=== PATIENT | female | born 2000 | race Asian ===

== ENCOUNTER 2023-12-12 18:23 | Emergency (ER) | payer BC ==
[~2023-12-12] VITALS: Ht 170.2 cm; Wt 51.4 kg
[~2023-12-12 18:23] MED LIST: LOP12.5T PO
[2023-12-12 18:51] VITALS: TEMP 99.1
[2023-12-12 20:39] VITALS: BP 123/87
[2023-12-12] MEDS ORDERED: ketorolac trometh. 30mg/ml inj. IV ONE (21:05)
[2023-12-12] MEDS: ipratropium/albuterol 3ml nebule NEB STA (21:09)
[2023-12-12 21:10] VITALS: PULSE 82; RESP 16; O2SAT 98
[2023-12-12] MEDS: ipratropium/albuterol 3ml nebule NEB ONE (21:13)
[2023-12-12 21:17] VITALS: PULSE 80; RESP 16; O2SAT 99
[2023-12-12 21:20] VITALS: RESP 16
[2023-12-12] MEDS: ketorolac tromethamine 15mg/ml inj. IV ONE (21:20)
[2023-12-12] MEDS: dexamethasone sod phosphate 10mg/ml inj IM STA (21:20)
[2023-12-12] MEDS: ketorolac tromethamine 15mg/ml inj. IM ONE (21:20)
== END 2023-12-12 22:45 | disposition home or self-care (01) ==
LOC: ER 18:23
DX: J45.901 Unspecified asthma with (acute) exacerbation (principal); R07.81 Pleurodynia; Z79.899 Other long term (current) drug therapy
CPT/HCPCS: 71045; 94640; 96372; 99284; J1100; J1885; 94760

== ENCOUNTER 2023-12-15 20:37 | Inpatient (IN) | payer BC ==
[~2023-12-15] VITALS: Ht 170.2 cm; Wt 51.0 kg
[2023-12-15] MEDS: albuterol 2.5 MG/3 ML nebule CONTNEB PRN (20:58)
[2023-12-15 21:02] VITALS: PULSE 93; RESP 35; O2SAT 100
[2023-12-15] MEDS: methylPREDNISolone sod succ/PF 40mg inj. IV STA (21:04)
[2023-12-15] MEDS: normal saline 1000ML IV soln IVB ONE (21:04)
[2023-12-15 21:09] LABS: BASOPHILS % (AUTO) 0.3 % (0-1); EOSINOPHILS # (AUTO) 0.1 X10'3 (0-0.9); EOSINOPHILS % (AUTO) 0.6 % (0-6); HEMATOCRIT 42.8 % (35.0-45.0); HEMOGLOBIN 14.3 g/dl (12.0-16.0); LYMPHOCYTES # (AUTO) 1.9 X10'3 (1.1-4.8); LYMPHOCYTES % (AUTO) 20.9 % (21-51); MEAN CORPUSCULAR HEMOGLOBIN 31.3 PG (27.0-31.0); MEAN CORPUSCULAR HGB CONC 33.5 g/dL (33.0-36.5); MEAN CORPUSCULAR VOLUME 93.5 FL (78-98); MEAN PLATELET VOLUME 7.3 FL (7.4-10.4); MONOCYTES # (AUTO) 0.8 X10'3 (0-0.9); MONOCYTES % (AUTO) 8.9 % (2-12); NEUTROPHILS # (AUTO) 6.2 X10'3 (1.8-7.7); NEUTROPHILS % (AUTO) 69.3 % (42-75); PLATELET COUNT 294 X10'3 (140-440); RED BLOOD COUNT 4.58 X10'6 (4.20-5.60); RED CELL DISTRIBUTION WIDTH 12.8 % (11.5-14.5); WHITE BLOOD COUNT 8.9 X10'3 (4.5-11.0)
[2023-12-15 21:18] LABS: ALBUMIN 4.1 G/DL (3.4-5.0); ANION GAP 11 (8-16); BLOOD UREA NITROGEN 10 MG/DL (7-18); BUN/CREATININE RATIO 15.9 (10.0-20.0); CALCIUM 8.9 MG/DL (8.5-10.1); CHLORIDE 102 MMOL/L (99-107); CREATININE 0.63 MG/DL (0.40-0.90); GLUCOSE 99 MG/DL (70-104); POTASSIUM 3.4 MMOL/L (3.5-5.1); SODIUM 139 MMOL/L (135-145); eCRCL 112 ML/MIN; eGFR > 90 ML/MIN
[2023-12-15 21:35] VITALS: PULSE 84; RESP 25; O2SAT 100
[2023-12-15 22:17] VITALS: PULSE 88; RESP 24; O2SAT 100
[2023-12-15] MEDS: magnesium 2GM in 50ml NS 50 ML IV ONE (22:50)
[2023-12-15 23:34] VITALS: PULSE 113; RESP 24; O2SAT 100
[2023-12-16] VITALS (21 sets, daily range): BP systolic 103–120; BP diastolic 50–73; PULSE 81–132; RESP 12–34; TEMP 97.2–98.7; O2SAT 97–100
[2023-12-16] MEDS ORDERED: ondansetron 4mg rapidly disintigrating tab PO PRN (00:05)
[2023-12-16] MEDS ORDERED: acetaminophen 325mg tablet PO PRN ×2 (00:05)
[2023-12-16] MEDS ORDERED: magnesium Cl slow-release 64mg tablet PO PRN (00:05)
[2023-12-16] MEDS ORDERED: potassium Cl 40MEQ/1/2NS 520ml 520 ML IV PRN (00:05)
[2023-12-16] MEDS ORDERED: magnesium 4gm in 100ml NS 100 ML IV PRN (00:05)
[2023-12-16] MEDS ORDERED: ondansetron/PF 4mg/2ml inj IV PRN (00:05)
[2023-12-16] MEDS ORDERED: magnesium 2GM in 50ml NS 50 ML IV PRN (00:05)
[2023-12-16] MEDS ORDERED: mag hydrox/Alum hydrox/simeth 30ml oral suspension PO PRN (00:05)
[2023-12-16] MEDS ORDERED: potassium Cl 20 mEq SR tablet PO PRN ×2 (00:05)
[2023-12-16] MEDS ORDERED: albuterol 2.5 MG/3 ML nebule NEB PRN (00:05)
[2023-12-16] MEDS ORDERED: magnesium hydroxide 30ml (MOM) UD suspension PO PRN (00:05)
[2023-12-16] MEDS: methylPREDNISolone sod succ 125mg/2ml vial IV ONE (00:59)
[2023-12-16 01:25] LABS: BILIRUBIN,URINE NEGATIVE (Neg); CLARITY,URINE CLEAR (Clear); COLOR,URINE STRAW (Yellow); GLUCOSE, URINE NEGATIVE (Neg); KETONES,URINE NEGATIVE (Neg); LEUKOCYTE ESTERASE ,URINE NEGATIVE (Neg); NITRITES, URINE NEGATIVE (Neg); OCCULT BLOOD,URINE SMALL (Neg); PH,URINE 5.5 (4.8-8.0); PROTEIN,URINE NEGATIVE (Neg); URINE HCG NEGATIVE (NEG); UROBILINOGEN,URINE 0.2 E.U/dL (0.2-1.0)
[2023-12-16 01:28] LABS: UA COLLECTION TYPE CLN CATCH MIDSTREAM
[2023-12-16] MEDS ORDERED: ipratropium 0.5 MG/2.5ML nebule IH PRN (01:30)
[2023-12-16 01:38] LABS: BACTERIA,URINE NONE SEEN /HPF (Neg); MUCUS STRANDS FEW /LPF (Neg); SQUAMOUS EPITHELIAL CELL,UR FEW /LPF (FEW); WBC,URINE 0-4 /HPF (0-4)
[2023-12-16 01:52] LABS: URINE AMPHETAMINE SCREEN NEGATIVE (Neg); URINE BARBITUATE SCREEN NEGATIVE (Neg); URINE BENZODIAZEPINES SCREEN NEGATIVE (Neg); URINE CANNABINOID SCREEN NEGATIVE (Neg); URINE COCAINE SCREEN NEGATIVE (Neg); URINE METHADONE SCREEN NEGATIVE (Neg); URINE PHENCYCLIDINE SCREEN NEGATIVE (Neg)
[2023-12-16] MEDS ORDERED: albuterol 2.5 MG/3 ML nebule NEB SCH ×2 (03:00→07:00)
[2023-12-16] MEDS: ipratropium 0.5 MG/2.5ML nebule IH SCH (03:08)
[2023-12-16] MEDS: albuterol 2.5 MG/3 ML nebule CONTNEB SCH (03:13)
[2023-12-16] MEDS: albuterol 2.5 MG/3 ML nebule CONTNEB PRN (05:26)
[2023-12-16] MEDS: budesonide 0.5mg/2ml UD nebule IH SCH (06:42)
[2023-12-16] MEDS: ipratropium/albuterol 3ml nebule NEB SCH (06:42)
[2023-12-16] MEDS: methylPREDNISolone sod succ/PF 40mg inj. IV SCH (07:43)
[2023-12-16] MEDS: docusate sod 100mg capsule PO SCH (08:00)
[2023-12-16] MEDS: enoxaparin 40mg/0.4ml syringe SUBCUT SCH (08:00)
[2023-12-16] MEDS: K and/or MAG REPLACEMENT MC SCH (08:00)
[2023-12-16] MEDS ORDERED: predniSONE 20 mg tablet PO SCH (08:00)
[2023-12-16] MEDS: albuterol 2.5 MG/3 ML nebule NEB PRN (08:01)
[2023-12-16 08:05] LABS: CREATINE KINASE 41 U/L (26-192); MAGNESIUM 2.3 MG/DL (1.5-2.4); POTASSIUM 3.9 MMOL/L (3.5-5.1); PRO BRAIN NATRIURETIC PEPTIDE 50 PG/ML (0-125)
[2023-12-16 08:15] LABS: D-DIMER 0.29 MG/L FEU (0-0.50)
[2023-12-16 08:32] LABS: BASOPHILS % (AUTO) 0.1 % (0-1); EOSINOPHILS % (AUTO) 0 % (0-6); HEMATOCRIT 41.3 % (35.0-45.0); HEMOGLOBIN 13.7 g/dl (12.0-16.0); LYMPHOCYTES # (AUTO) 0.5 X10'3 (1.1-4.8); LYMPHOCYTES % (AUTO) 4.7 % (21-51); MEAN CORPUSCULAR HEMOGLOBIN 31.1 PG (27.0-31.0); MEAN CORPUSCULAR HGB CONC 33.1 g/dL (33.0-36.5); MEAN CORPUSCULAR VOLUME 93.9 FL (78-98); MEAN PLATELET VOLUME 7.3 FL (7.4-10.4); MONOCYTES # (AUTO) 0.1 X10'3 (0-0.9); MONOCYTES % (AUTO) 1.1 % (2-12); NEUTROPHILS # (AUTO) 9.1 X10'3 (1.8-7.7); NEUTROPHILS % (AUTO) 94.1 % (42-75); PLATELET COUNT 270 X10'3 (140-440); RED CELL DISTRIBUTION WIDTH 12.8 % (11.5-14.5); WHITE BLOOD COUNT 9.7 X10'3 (4.5-11.0)
[2023-12-16] MEDS ORDERED: PRE5T PO (09:06)
[2023-12-16] MEDS ORDERED: ALBU2.5V10 (09:06)
[2023-12-16] MEDS ORDERED: INHA1SPA32 (09:06)
[2023-12-16] MEDS ORDERED: TIOT4MIS2 (09:06)
[2023-12-16] MEDS ORDERED: BUDE0.256 NEB (09:06)
[2023-12-16] MEDS ORDERED: BUDE10.26 (09:06)
[2023-12-16 10:02] LABS: ALANINE AMINOTRANSFERASE 28 U/L (12-78); ALBUMIN 3.7 G/DL (3.4-5.0); ALKALINE PHOSPHATASE 34 IU/L (46-116); ANION GAP 15 (8-16); ASPARTATE AMINO TRANSFERASE 11 U/L (10-37); BILIRUBIN,TOTAL 0.4 MG/DL (0.1-1.0); BLOOD UREA NITROGEN 6 MG/DL (7-18); BUN/CREATININE RATIO 7.8 (10.0-20.0); CALCIUM 8.5 MG/DL (8.5-10.1); CHLORIDE 104 MMOL/L (99-107); CREATININE 0.77 MG/DL (0.40-0.90); GLUCOSE 139 MG/DL (70-104); POTASSIUM 3.7 MMOL/L (3.5-5.1); SODIUM 138 MMOL/L (135-145); TOTAL CARBON DIOXIDE 19.3 MMOL/L (24-32); TOTAL PROTEIN 7.3 G/DL (6.4-8.2); eCRCL 91 ML/MIN; eGFR > 90 ML/MIN
[2023-12-16] MEDS ORDERED: levalbuterol 1.25mg/0.5ml nebule IH PRN (14:30)
[2023-12-16] MEDS: metoprolol tartrate 25mg tablet PO ONE (15:00)
[2023-12-17] VITALS (12 sets, daily range): BP systolic 105–115; BP diastolic 65–78; PULSE 88–102; RESP 14–18; TEMP 97.6–98; O2SAT 92–99
[2023-12-17 07:09] LABS: BASOPHILS % (AUTO) 0.1 % (0-1); EOSINOPHILS % (AUTO) 0 % (0-6); HEMATOCRIT 43.7 % (35.0-45.0); HEMOGLOBIN 14.5 g/dl (12.0-16.0); LYMPHOCYTES # (AUTO) 0.9 X10'3 (1.1-4.8); LYMPHOCYTES % (AUTO) 6.8 % (21-51); MEAN CORPUSCULAR HEMOGLOBIN 31.1 PG (27.0-31.0); MEAN CORPUSCULAR HGB CONC 33.2 g/dL (33.0-36.5); MEAN CORPUSCULAR VOLUME 93.6 FL (78-98); MEAN PLATELET VOLUME 7.5 FL (7.4-10.4); MONOCYTES # (AUTO) 0.6 X10'3 (0-0.9); MONOCYTES % (AUTO) 4.2 % (2-12); NEUTROPHILS # (AUTO) 12.3 X10'3 (1.8-7.7); NEUTROPHILS % (AUTO) 88.9 % (42-75); PLATELET COUNT 276 X10'3 (140-440); RED BLOOD COUNT 4.66 X10'6 (4.20-5.60); RED CELL DISTRIBUTION WIDTH 12.9 % (11.5-14.5); WHITE BLOOD COUNT 13.9 X10'3 (4.5-11.0)
[2023-12-17 07:17] LABS: ALBUMIN 3.9 G/DL (3.4-5.0); ANION GAP 11 (8-16); BLOOD UREA NITROGEN 12 MG/DL (7-18); BUN/CREATININE RATIO 19.7 (10.0-20.0); CALCIUM 9.3 MG/DL (8.5-10.1); CHLORIDE 101 MMOL/L (99-107); CREATININE 0.61 MG/DL (0.40-0.90); GLUCOSE 106 MG/DL (70-104); MAGNESIUM 2.3 MG/DL (1.5-2.4); PHOSPHORUS 4.5 MG/DL (2.3-4.5); POTASSIUM 4.1 MMOL/L (3.5-5.1); SODIUM 137 MMOL/L (135-145); eCRCL 115 ML/MIN; eGFR > 90 ML/MIN
[2023-12-17] MEDS ORDERED: PRED10TA23 PO (14:23)
[2023-12-17] MEDS ORDERED: PANT40SU2 PO (14:24)
== END 2023-12-17 16:30 | disposition home or self-care (01) | DRG 203 ==
LOC: ER 20:38 → ED HOLD 12-16 00:09 → ORTHO 4S 12-16 07:32
PROVIDERS: ADMIT Family Medicine; ATTEND Internal Medicine
DX: J45.902 Unspecified asthma with status asthmaticus (principal); E87.6 Hypokalemia
CPT/HCPCS: 36415; 71045; 80048; 80053; 80305; 81001; 81025; 82550; 83735; 83880; 84100; 84132; 84484; 85025; 85379; 87081; 93005; 94640; 94760; 99291; G0378; J2919; J3475; J7030

== ENCOUNTER 2023-12-19 22:49 | Emergency (ER) | payer BC ==
[~2023-12-19] VITALS: Ht 175.3 cm; Wt 65.9 kg
[~2023-12-19 22:49] MED LIST changes: +ALBU2.5V10; +BUDE0.256 NEB; +BUDE10.26; +INHA1SPA32; +PANT40SU2 PO; +PRED10TA23 PO; +TIOT4MIS2
[2023-12-19 22:53] VITALS: TEMP 98.7
[2023-12-19] MEDS ORDERED: ipratropium/albuterol 3ml nebule NEB PRN (22:55)
[2023-12-19] MEDS: albuterol 2.5 MG/3 ML nebule CONTNEB PRN (23:02)
[2023-12-19] MEDS: methylPREDNISolone sod succ 125mg/2ml vial IV ONE (23:02)
[2023-12-19 23:03] VITALS: PULSE 95; RESP 21; O2SAT 10
[2023-12-19] MEDS: magnesium 2GM in 50ml NS 50 ML IV ONE (23:15)
[2023-12-20 00:02] VITALS: PULSE 96; RESP 24; O2SAT 100
[2023-12-20] MEDS: epiNEPHrine 1 mg/ml inj IM STA (00:29)
[2023-12-20 00:56] LABS: BASOPHILS # (AUTO) 0.2 X10'3 (0-0.2); EOSINOPHILS % (AUTO) 0.3 % (0-6); HEMATOCRIT 39.2 % (35.0-45.0); HEMOGLOBIN 13.3 g/dl (12.0-16.0); LYMPHOCYTES # (AUTO) 0.6 X10'3 (1.1-4.8); LYMPHOCYTES % (AUTO) 7.2 % (21-51); MEAN CORPUSCULAR HEMOGLOBIN 31.1 PG (27.0-31.0); MEAN CORPUSCULAR VOLUME 91.5 FL (78-98); MEAN PLATELET VOLUME 7.3 FL (7.4-10.4); MONOCYTES # (AUTO) 0.3 X10'3 (0-0.9); MONOCYTES % (AUTO) 3.3 % (2-12); NEUTROPHILS # (AUTO) 7.1 X10'3 (1.8-7.7); NEUTROPHILS % (AUTO) 87.2 % (42-75); PLATELET COUNT 237 X10'3 (140-440); RED BLOOD COUNT 4.29 X10'6 (4.20-5.60); WHITE BLOOD COUNT 8.2 X10'3 (4.5-11.0)
[2023-12-20 00:59] LABS: ALBUMIN 3.8 G/DL (3.4-5.0); ANION GAP 12 (8-16); BLOOD UREA NITROGEN 12 MG/DL (7-18); BUN/CREATININE RATIO 19.7 (10.0-20.0); CALCIUM 8.3 MG/DL (8.5-10.1); CHLORIDE 105 MMOL/L (99-107); CREATININE 0.61 MG/DL (0.40-0.90); GLUCOSE 122 MG/DL (70-104); SODIUM 140 MMOL/L (135-145); TOTAL CARBON DIOXIDE 23.1 MMOL/L (24-32); eCRCL 149 ML/MIN; eGFR > 90 ML/MIN
[2023-12-20 01:06] LABS: POTASSIUM 2.9 MMOL/L (3.5-5.1)
[2023-12-20 02:24] VITALS: BP 109/71; PULSE 89; RESP 24; O2SAT 100
== END 2023-12-20 02:20 | disposition home or self-care (01) ==
LOC: ER 22:49
DX: J45.998 Other asthma (principal); Z79.899 Other long term (current) drug therapy
CPT/HCPCS: 36415; 80048; 85025; 94640; 94644; 96365; 96372; 96375; 99285; J0171; J2919; J3475; 94760

== ENCOUNTER 2024-01-08 22:31 | Emergency (ER) | payer BC ==
[~2024-01-08] VITALS: Ht 170.2 cm; Wt 53.4 kg
[2024-01-08 22:34] VITALS: TEMP 98.9
[2024-01-08] MEDS ORDERED: albuterol 2.5 MG/3 ML nebule NEB ONE (22:45)
[2024-01-08] MEDS: predniSONE 20 mg tablet PO ONE (22:45)
[2024-01-08] MEDS: albuterol 2.5 MG/3 ML nebule CONTNEB PRN (23:02)
[2024-01-08 23:10] VITALS: PULSE 110; RESP 26; O2SAT 96
[2024-01-08 23:13] LABS: BASOPHILS % (AUTO) 0.7 % (0-1); EOSINOPHILS # (AUTO) 0.1 X10'3 (0-0.9); EOSINOPHILS % (AUTO) 1.7 % (0-6); HEMATOCRIT 39.2 % (35.0-45.0); HEMOGLOBIN 13.2 g/dl (12.0-16.0); LYMPHOCYTES # (AUTO) 1.6 X10'3 (1.1-4.8); LYMPHOCYTES % (AUTO) 26.7 % (21-51); MEAN CORPUSCULAR HGB CONC 33.6 g/dL (33.0-36.5); MEAN CORPUSCULAR VOLUME 92.3 FL (78-98); MEAN PLATELET VOLUME 6.7 FL (7.4-10.4); MONOCYTES # (AUTO) 0.6 X10'3 (0-0.9); MONOCYTES % (AUTO) 10.1 % (2-12); NEUTROPHILS # (AUTO) 3.6 X10'3 (1.8-7.7); NEUTROPHILS % (AUTO) 60.8 % (42-75); PLATELET COUNT 248 X10'3 (140-440); RED BLOOD COUNT 4.24 X10'6 (4.20-5.60); RED CELL DISTRIBUTION WIDTH 12.9 % (11.5-14.5); WHITE BLOOD COUNT 5.9 X10'3 (4.5-11.0)
[2024-01-08] MEDS: dexamethasone sod phosphate 10mg/ml inj IV STA (23:28)
[2024-01-08 23:35] LABS: ALBUMIN 3.6 G/DL (3.4-5.0); ANION GAP 10 (8-16); BLOOD UREA NITROGEN 11 MG/DL (7-18); BUN/CREATININE RATIO 20.4 (10.0-20.0); CALCIUM 8.7 MG/DL (8.5-10.1); CHLORIDE 107 MMOL/L (99-107); CREATININE 0.54 MG/DL (0.40-0.90); GLUCOSE 103 MG/DL (70-104); POTASSIUM 3.5 MMOL/L (3.5-5.1); SODIUM 142 MMOL/L (135-145); TOTAL CARBON DIOXIDE 24.8 MMOL/L (24-32); eCRCL 137 ML/MIN; eGFR > 90 ML/MIN
[2024-01-08 23:39] LABS: PRO BRAIN NATRIURETIC PEPTIDE < 30 PG/ML (0-125)
[2024-01-09 00:22] VITALS: PULSE 106; RESP 16; O2SAT 97
[2024-01-09 01:32] VITALS: BP 105/69; PULSE 93; RESP 15; O2SAT 98
== END 2024-01-09 01:35 | disposition home or self-care (01) ==
LOC: ER 22:32
DX: J45.909 Unspecified asthma, uncomplicated (principal); Z79.899 Other long term (current) drug therapy
CPT/HCPCS: 36415; 71045; 80048; 83880; 84484; 85025; 93005; 94640; 94644; 96374; 99285; J1100; A7015

== ENCOUNTER 2024-08-08 13:08 | Emergency (ER) | payer BC ==
[~2024-08-08] VITALS: Ht 170.2 cm; Wt 61.6 kg
[~2024-08-08 13:08] MED LIST changes: -PRED10TA23 PO
[2024-08-08] MEDS: methylPREDNISolone sod succ 125mg/2ml vial IV ONE (14:17)
[2024-08-08] MEDS: ipratropium/albuterol 3ml nebule NEB ONE (14:17)
[2024-08-08 14:22] VITALS: PULSE 88; RESP 20; O2SAT 100
[2024-08-08 14:27] VITALS: PULSE 94; RESP 20; O2SAT 100
[2024-08-08] MEDS ORDERED: PRED10TA23 PO (15:51)
[2024-08-08 16:05] VITALS: BP 103/69; PULSE 99; RESP 16; TEMP 98; O2SAT 100
== END 2024-08-08 16:04 | disposition home or self-care (01) ==
LOC: ER 13:08
DX: J45.901 Unspecified asthma with (acute) exacerbation (principal); Z79.899 Other long term (current) drug therapy
CPT/HCPCS: 94640; 96374; 99283; J2919; 94760

== ENCOUNTER 2024-08-12 19:49 | Emergency (ER) | payer BC ==
[~2024-08-12] VITALS: Ht 170.2 cm; Wt 53.6 kg
[~2024-08-12 19:49] MED LIST changes: +PRED10TA23 PO
[2024-08-12] MEDS ORDERED: ipratropium/albuterol 3ml nebule NEB PRN (22:20)
[2024-08-12] MEDS: ipratropium/albuterol 3ml nebule NEB ONE (23:00)
[2024-08-12 23:02] VITALS: PULSE 104; O2SAT 100
[2024-08-12 23:05] VITALS: PULSE 98; RESP 24; O2SAT 100
[2024-08-13] MEDS ORDERED: METH4TAB81 PO (00:12)
[2024-08-13] MEDS: dexamethasone 4mg/ml inj IM ONE (01:11)
[2024-08-13] MEDS: albuterol 2.5 MG/3 ML nebule NEB ONE (01:20)
[2024-08-13 01:21] VITALS: PULSE 85; RESP 21; O2SAT 99
[2024-08-13 01:28] VITALS: PULSE 89; RESP 20; O2SAT 100
[2024-08-13 02:26] VITALS: BP 109/70; PULSE 103; RESP 16; TEMP 97.7; O2SAT 99
== END 2024-08-13 02:23 | disposition home or self-care (01) ==
LOC: ER 19:50
DX: J45.909 Unspecified asthma, uncomplicated (principal); F41.9 Anxiety disorder, unspecified
CPT/HCPCS: 71046; 94640; 96372; 99285; J1100; 94760

== ENCOUNTER 2024-08-20 20:27 | Emergency (ER) | payer BC ==
[~2024-08-20] VITALS: Ht 170.2 cm; Wt 63.5 kg
[~2024-08-20 20:27] MED LIST changes: +METH4TAB81 PO
[2024-08-20 20:34] VITALS: TEMP 99
[2024-08-20] MEDS: normal saline 1000ml 1,000 ML IV ONE (21:46)
[2024-08-20] MEDS: methylPREDNISolone sod succ 125mg/2ml vial IV ONE (21:46)
[2024-08-20] MEDS: ipratropium/albuterol 3ml nebule NEB ONE (22:59)
[2024-08-20 23:01] VITALS: PULSE 122; RESP 18; O2SAT 99
[2024-08-20 23:04] VITALS: PULSE 119; RESP 18; O2SAT 99
[2024-08-21 00:08] VITALS: BP 109/77; PULSE 116; RESP 16; O2SAT 99
== END 2024-08-21 00:10 | disposition home or self-care (01) ==
LOC: ER 20:28
DX: J45.909 Unspecified asthma, uncomplicated (principal); Z79.899 Other long term (current) drug therapy
CPT/HCPCS: 71045; 93005; 94640; 96361; 96374; 99283; J2919; J7030; 94760

== ENCOUNTER 2024-09-02 20:48 | Emergency (ER) | payer BC ==
[~2024-09-02] VITALS: Ht 170.2 cm; Wt 56.1 kg
[2024-09-02] MEDS: ipratropium/albuterol 3ml nebule NEB ONE (22:05)
[2024-09-02 22:08] VITALS: PULSE 105; PULSE 111; RESP 18; RESP 22; O2SAT 100; O2SAT 98
[2024-09-02] MEDS: dexamethasone sod phosphate 10mg/ml inj IM ONE (22:58)
[2024-09-02] MEDS: albuterol 2.5 MG/3 ML nebule CONTNEB ONE (23:34)
[2024-09-02 23:37] VITALS: PULSE 98; RESP 18; O2SAT 99
[2024-09-03 00:06] VITALS: BP 133/100; TEMP 96.8
[2024-09-03 00:16] VITALS: PULSE 111; RESP 20; O2SAT 99
== END 2024-09-03 00:18 | disposition home or self-care (01) ==
LOC: ER 20:49
DX: J45.901 Unspecified asthma with (acute) exacerbation (principal); Z79.52 Long term (current) use of systemic steroids; Z79.899 Other long term (current) drug therapy
CPT/HCPCS: 94644; 96372; 99285; J1100; 94640; 94760; A7015

== ENCOUNTER 2024-10-22 01:55 | Emergency (ER) | payer BC ==
[~2024-10-22] VITALS: Ht 170.2 cm; Wt 56.2 kg
[~2024-10-22 01:55] MED LIST changes: -PRED10TA23 PO
[2024-10-22] MEDS: dexamethasone sod phosphate 10mg/ml inj IM STA (02:59)
[2024-10-22 03:30] VITALS: PULSE 94; RESP 22; O2SAT 98
[2024-10-22] MEDS: ipratropium/albuterol 3ml nebule NEB ONE (03:35)
[2024-10-22 03:47] VITALS: PULSE 91; RESP 24; O2SAT 97
[2024-10-22 04:49] VITALS: BP 121/69; PULSE 97; RESP 18; TEMP 98.1; O2SAT 97
== END 2024-10-22 04:51 | disposition home or self-care (01) ==
LOC: ER 01:56
DX: J45.909 Unspecified asthma, uncomplicated (principal); Z79.52 Long term (current) use of systemic steroids
CPT/HCPCS: 94640; 96372; 99283; J1100; 94760

== ENCOUNTER 2024-11-10 19:00 | Emergency (ER) | payer BC ==
[~2024-11-10] VITALS: Ht 170.2 cm; Wt 66.0 kg
[2024-11-10] MEDS ORDERED: ipratropium/albuterol 3ml nebule NEB ONE (19:20)
[2024-11-10] MEDS ORDERED: racepinephrine 11.25mg/0.5ml nebule IH ONE (19:30)
--- NOTE | 2024-11-10 19:33 | ELECTROCARDIOGRAPH REPORT ---
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 Toro Tapia Measurements Intervals [place] Rate: 99 P: 45 [place]: 131 QRS: 64 QRSD: 80 T: 40 QT: 328 QTc: 421 Interpretive Statements Sinus rhythm Baseline wander in lead(s) V3 Electronically Signed On 11-11-2024 15:46:[address] Toro Tapia Please click the below link to view image of tracing.
[2024-11-10 19:38] LABS: BASOPHILS % (AUTO) 0.4 % (0-1); EOSINOPHILS % (AUTO) 0.5 % (0-6); HEMATOCRIT 38.3 % (35.0-45.0); HEMOGLOBIN 12.5 g/dl (12.0-16.0); LYMPHOCYTES # (AUTO) 3.2 X10'3 (1.1-4.8); LYMPHOCYTES % (AUTO) 35.5 % (21-51); MEAN CORPUSCULAR HGB CONC 32.7 g/dL (33.0-36.5); MEAN CORPUSCULAR VOLUME 85.7 FL (78-98); MEAN PLATELET VOLUME 7.3 FL (7.4-10.4); MONOCYTES # (AUTO) 0.7 X10'3 (0-0.9); MONOCYTES % (AUTO) 8.2 % (2-12); NEUTROPHILS % (AUTO) 55.4 % (42-75); PLATELET COUNT 310 X10'3 (140-440); RED BLOOD COUNT 4.47 X10'6 (4.20-5.60); RED CELL DISTRIBUTION WIDTH 15.1 % (11.5-14.5)
[2024-11-10 19:56] VITALS: PULSE 98; RESP 2; O2SAT 99
[2024-11-10 19:56] LABS: ALANINE AMINOTRANSFERASE 31 U/L (12-78); ALBUMIN/GLOBULIN RATIO 1.5 (1.1-1.5); ALKALINE PHOSPHATASE 59 IU/L (46-116); ANION GAP 9 (8-16); ASPARTATE AMINO TRANSFERASE 19 U/L (10-37); BILIRUBIN,TOTAL 0.3 MG/DL (0.1-1.0); BLOOD UREA NITROGEN 17 MG/DL (7-18); BUN/CREATININE RATIO 33.3 (10.0-20.0); CALCIUM 8.5 MG/DL (8.5-10.1); CHLORIDE 107 MMOL/L (99-107); CREATININE 0.51 MG/DL (0.40-0.90); GLUCOSE 88 MG/DL (70-104); POTASSIUM 3.6 MMOL/L (3.5-5.1); SODIUM 143 MMOL/L (135-145); TOTAL CARBON DIOXIDE 27.5 MMOL/L (24-32); TOTAL PROTEIN 6.7 G/DL (6.4-8.2); eCRCL 165 ML/MIN; eGFR > 90 ML/MIN
[2024-11-10] MEDS: ipratropium/albuterol 3ml nebule NEB ONE (20:05)
[2024-11-10 20:08] VITALS: PULSE 106; O2SAT 100
--- NOTE | 2024-11-10 20:12 | Physician Documentation ---
History of Present Illness ~ Chief Complaint: Asthma Stated Complaint: "WHEEZING" Time Seen by MD: 19:31 Primary Medical Doctor: Frankie (PCP)/UCXander for asthma Mode of Arrival: POV HPI Patient presents to the emergency room for evaluation of shortness of breath. 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 Her doctor it was recently discontinued her albuterol treatment. Colleague at bedside states she has been wheezing all day. Medication Reconciliation Allergies: Coded Allergies: No Known Allergies (Unverified , 10/22/24) Scheduled Budesonide (Budesonide), 2 ML NEB BID, (Reported) Methylprednisolone (Medrol Dosepak), 0 PO UD Metoprolol Tartrate (Lopressor tablet), 1 TAB PO DAILY Pantoprazole Sodium (Protonix), 40 MG PO DAILY Tiotropium [place] (Spiriva Respimat), 2 PUFFS DAILY, (Reported) Miscellaneous Medications Albuterol Sulfate (Albuterol Sulfate), (Reported) Budesonide/Formoterol Fumarate (Budesonide-Formoterol 160-4.5), (Reported) Durable Medical Equipment Inhaler, Assist Devices (Compact Space Chamber), (Reported), (DME) Past Medical History Past Medical History: Asthma Patient History: Patient reports no known family medical history. Alcohol Use: None Drug Use: none Review of Systems ROS All review of systems negative except as per HPI Physical Exam Vital Signs: Temperature: 98.4, Source: Oral, Heart Rate: 106, Respiratory Rate: 2, BP: 101/71, Pulse Oximetry: 100, Weight: 66.000 Oxygen Flow Rate: 0 Physical Exam General: Patient is awake, alert, oriented x4 in no acute distress Head: Normocephalic and atraumatic. Eyes: Conjunctival normal. EOMI. PERRL. ENT: Mucous membranes moist. Neck: Supple, trachea is midline. Chest: Clear to auscultation bilaterally without rales, rhonchi, or wheezes. There is no accessory muscle use or retractions. Cardiac: Tachycardic and regular without murmurs, gallops, or rubs. Extremities: Normal strength. Normal range of motion. No deformities or edema. No calf tenderness to palpation Progress Results/Orders Results/Orders Orders - JOSEPH PADILLA MD Cont Nebulizer Treatment (11/10/24 20:36) Albuterol 2.5mg/3ml Nebule (Proventil 2. (11/10/24 20:40) Medications Received in ER Medications (Trade) Dose Ordered Sig/Cherry Route PRN Reason Start Time Stop Time Status Last Admin Dose Admin (ipratrop/ albuterol 0.5-3(2.5) MG/3ml nebule) 3 ml ONCE ONCE NEB 11/10/24 20:05 11/10/24 20:06 DC 11/10/24 20:05 3 ML (Proventil 2.5 MG/3ML nebule) 5 mg Q1H PRN CONTNEB SOB or wheezing 11/10/24 20:40 11/10/24 21:06 5 MG Vital Signs 11/10/24 11/10/24 11/10/24 11/10/24 19:17 19:46 19:48 19:56 Temp 98.4 Pulse 101 103 98 Resp 19 21 2 B/P (MAP) 112/78 101/71 (81) Pulse Ox 100 100 99 O2 Delivery Room Air* O2 Flow Rate 0 0 FiO2 21 11/10/24 11/10/24 11/10/24 11/10/24 20:08 20:23 20:32 21:09 Pulse 106 102 96 Resp 6 B/P (MAP) 107/71 (83) Pulse Ox 100 100 100 O2 Delivery Room Air* O2 Flow Rate 0 FiO2 21 11/10/24 11/10/24 21:09 21:55 Pulse 100 B/P (MAP) 110/75 (87) Pulse Ox 100 O2 Flow Rate 8.0 Laboratory Tests Test 11/10/24 19:28 White Blood Count 9.0 Red Blood Count 4.47 Hemoglobin 12.5 Hematocrit 38.3 Mean Corpuscular Volume 85.7 Mean Corpuscular Hemoglobin 28.0 Mean Corpuscular Hemoglobin Concent 32.7 L Red Cell Distribution Width 15.1 H Platelet Count 310 Mean Platelet Volume 7.3 L Neutrophils (%) (Auto) 55.4 Lymphocytes (%) (Auto) 35.5 Monocytes (%) (Auto) 8.2 Eosinophils (%) (Auto) 0.5 Basophils (%) (Auto) 0.4 Neutrophils # (Auto) 5.0 Lymphocytes # (Auto) 3.2 Monocytes # (Auto) 0.7 Eosinophils # (Auto) 0.0 Basophils # (Auto) 0.0 CBC Comment Sodium Level 143 Potassium Level 3.6 Chloride Level 107 Carbon Dioxide Level 27.5 Anion Gap 9 Blood Urea Nitrogen 17 Creatinine 0.51 Estimated GFR/1.73 m2 > 90 BUN/Creatinine Ratio 33.3 H Glucose Level 88 Calcium Level 8.5 Total Bilirubin 0.3 Aspartate Amino Transf (AST/SGOT) 19 Alanine Aminotransferase (ALT/SGPT) 31 Alkaline Phosphatase 59 Total Protein 6.7 Albumin 4.0 Globulin 2.7 Albumin/Globulin Ratio 1.5 Chemistry Comments EKG/XRAY/CT/US/VASC/MRI Chest X-Ray : Additional Comments Chest x-ray interpreted by myself shows no effusions, no infiltrates, normal cardiac silhouette. Ring like metallic foreign body noted over left lower chest likely related to clothing. Correlate on physical exam Medical Decision Making Findings Patient presents to the emergency room for evaluation of shortness of breath. No wheezing upon auscultation. She was responded to breathing treatments any ways and it was asking to leave. I do believe that has an element of anxiety. Differential Dx:Considerations: Include: anxiety, asthma, bronchitis, hyperventilation, pulmonary embolism, respiratory distress Departure Disposition: HOME / SELF CARE / HOMELESS Impression: Primary Impression: Acute respiratory distress Condition: Improved Discharge Instructions: Asthma, Adult, [id number] Additional Instructions: Continue to follow up with your doctor for management Referrals: NO PRIMARY CARE PROVIDER (PCP) Education Educated: Patient Educated regarding: need for follow up Signature Scribe Signature: No scribe Attestation: The note accurately reflects work and decisions made by me.Joseph Padilla MD 11/10/24 22:08 JOSEPH PADILLA MD November 10, 2024 20:12
--- NOTE | 2024-11-10 20:50 | RADIOLOGY REPORT ---
Clinical History SOB Comparison None Without Contrast DIANAJOSE GLULU, [id number] Technique: Frontal and lateral chest x-ray Findings: The lungs are unremarkable. No pleural abnormality. The cardiomediastinal silhouette is unremarkable for an AP view. No acute osseous abnormality. The imaged part of the upper abdomen is unremarkable. Impression: No evidence of acute cardiopulmonary disease This report was electronically signed by Genesis Bailey MD on 11/10/2024 8:47:30 PM.
[2024-11-10] MEDS: albuterol 2.5 MG/3 ML nebule CONTNEB PRN (21:06)
[2024-11-10 21:09] VITALS: PULSE 96; RESP 6; O2SAT 100
[2024-11-10 22:29] VITALS: BP 102/65; PULSE 106; RESP 18; TEMP 98.4; O2SAT 100
== END 2024-11-10 22:31 | disposition home or self-care (01) ==
LOC: ER 19:01
DX: R06.03 Acute respiratory distress (principal); J45.909 Unspecified asthma, uncomplicated; Z79.899 Other long term (current) drug therapy
CPT/HCPCS: 71046; 80053; 85025; 93005; 94640; 94760; 99285

== ENCOUNTER 2024-12-06 12:46 | Inpatient (IN) | payer BC ==
[2024-12-06] VITALS (11 sets, daily range): BP systolic 108; BP diastolic 68; PULSE 81–131; RESP 14–26; TEMP 98.6; O2SAT 96–100
[~2024-12-06] VITALS: Ht 170.2 cm; Wt 64.0 kg
[~2024-12-06 12:46] MED LIST changes: -ALBU2.5V10; +ALBU2.5V10 IH; -BUDE10.26; +BUDE10.26 IH
--- NOTE | 2024-12-06 13:14 | ELECTROCARDIOGRAPH REPORT ---
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
--- NOTE | 2024-12-06 13:20 | Physician Documentation ---
History of Present Illness ~ Chief Complaint: Shortness of Breath Stated Complaint: BRONCHITIS/SOB Time Seen by MD: 13:14 OK to notify your PCP?: Yes Primary Medical Doctor: Frankie (PCP)/JAREKD for asthma Source: patient, RN/, RN notes reviewed, old records Mode of Arrival: POV Exam Limitations: no limitations HPI This patient is a 24 y/o female with asthma who presents to ED with chief complaint of shortness of breath. Patient reports that she was in the [place] where she was visiting her brother yesterday when she started to experience persistent shortness of breath. Patient does have breathing treatments at home which she has been using [id number], however they only provider her temporary relief. She decided to be seen by a doctor in the [place] yesterday where she was treated with IV steroids, stating that after riding in the car with her brother who was vaping, her symptoms became much worse. She notes she is pr oducing white phlegm. She denies any fevers or sick contacts. Patient reports she has been hospitalized 3 times over the past year for asthma exacerbation, the last time being in October, approximately 2 months ago at which time she was admitted to the ICU. Patient notes that she is supposed to be on daily steroid treatment, but has not been taking them over the past few weeks due to side effects. Patient denies any other associated symptoms at this time. Patient denies any other alleviating or exacerbating factors. Medication Reconciliation Allergies: Coded Allergies: No Known Allergies (Unverified , 12/06/24) Scheduled Budesonide (Budesonide), 2 ML NEB BID, (Reported) Tiotropium [place] (Spiriva Respimat), 2 PUFFS DAILY, (Reported) Miscellaneous Medications Albuterol Sulfate (Albuterol Sulfate), (Reported) Budesonide/Formoterol Fumarate (Budesonide-Formoterol 160-4.5), (Reported) Tezepelumab-Ekko (Tezspire), (Reported) Discontinued Medications Methylprednisolone (Medrol Dosepak), 0 PO UD Discontinued Reason: patient no longer taking Metoprolol Tartrate (Lopressor tablet), 1 TAB PO DAILY Discontinued Reason: patient no longer taking Pantoprazole Sodium (Protonix), 40 MG PO DAILY Discontinued Reason: patient no longer taking Durable Medical Equipment Inhaler, Assist Devices (Compact Space Chamber), (Reported), (DME) Past Medical History Past Medical History: Asthma Past Surgical History: no surgical history Patient History: Patient reports no known family medical history. Smoking Status: Never smoker Alcohol Use: None Drug Use: none Review of Systems All Other Systems at this time: Reviewed and Negative Physical Exam Vital Signs: RN Vital Signs have been reviewed: Yes, Temperature: 98.9, Source: Temporal, Heart Rate: 137, Respiratory Rate: 16, BP: 142/88, Pulse Oximetry: 96, Weight: 66.700 Oxygen Flow Rate: 0 Physical Exam General: The patient is well developed, well nourished, nontoxic appearing and is in no acute distress. Skin: Espy, warm and dry with no rashes. HEENT: Head was normocephalic and atraumatic. Eyes - pupils equal, round, reactive to light and accommodation. Extraocular movements were intact. Conjunctivae were nonicteric. The mouth and oropharynx were clear with moist mucous membranes. There were no pharyngeal exudates or erythema. Neck: Supple and nontender. There was no jugular venous distention, lymphadenopathy, thyromegaly or masses. Chest: Short, shallow breath sounds. Diaphragmatic breathing. Speaking in short 2-3 word sentences. Expiratory wheezing on auscultation. Otherwise no rales or rhonchi. No accessory muscle use. No dullness to percussion. Heart: Rate regular and rhythmic. S1, S2. No murmurs. Palpation of the chest wall was normal. No rubs or thrills. Abdomen: Soft, nontender and nondistended. Positive bowel sounds. No guarding or rebound. No hepatosplenomegaly or palpable masses. Extremities: No cyanosis, clubbing or edema. The patient moves all extremities. Pulses were equal and symmetric. Neurologic: Cranial nerves II-XII were intact. Sensation was intact to light touch throughout. Motor strength was 5/5 in all four extremities. Deep tendon reflexes were intact in both upper and lower extremities. Psychologic: The patient was oriented to person, place and time. The patient demonstrated appropriate judgement and insight. Progress Progress Note 1530: Paged Hospitalist 1606: Case discussed with hospitalist who agrees to evaluate patient for admission. Results/Orders Results/Orders Orders - JUAN MIGUEL TAPIA MD Chest,Single View (12/06/24 13:09) Monitor (12/06/24 13:01) Saline Lock (12/06/24 13:01) Oxygen (12/06/24 13:01) Electrocardiogram (12/06/24 13:01) Culture Blood (12/06/24 13:22) Cont Nebulizer Treatment (12/06/24 13:23) Albuterol 2.5mg/3ml Nebule (Proventil 2. (12/06/24 13:25) Abg (Arterial Blood Gas) (12/06/24 ) Heliox Svn Treatment (12/06/24 14:25) Heliox Svn Treatment (12/06/24 14:25) Page Hospitalist (12/06/24 15:30) Fill Out Med Reconciliation (12/06/24 15:30) Completed Orders - JUAN MIGUEL TAPIA MD Chest,Single View (12/06/24 13:09) Cbc/Diff (12/06/24 13:01) PBNP (12/06/24 13:01) Electrocardiogram (12/06/24 13:01) Hs Troponin I W Calculations (12/06/24 13:01) Normal Saline 1000ml (Sodium Chloride 10 (12/06/24 13:25) Procalcitonin (12/06/24 13:22) Lacticsepsis (12/06/24 13:22) Methylprednisolone Sod Succ (Solumedrol (12/06/24 13:25) CMP (12/06/24 13:45) Albuterol 2.5mg/3ml Nebule (Proventil 2. (12/06/24 14:25) Albuterol 2.5mg/3ml Nebule (Proventil 2. (12/06/24 14:25) Magnesium Sulf-Water 2g/50ml (Magnesium (12/06/24 14:45) Lactic,2hr (12/06/24 15:18) Medications Received in ER Medications (Trade) Dose Ordered Sig/Cherry Route PRN Reason Start Time Stop Time Status Last Admin Dose Admin (ipratrop/ albuterol 0.5-3(2.5) MG/3ml nebule) 3 ml ONCE ONCE NEB 12/06/24 13:15 12/06/24 13:16 DC 12/06/24 14:34 3 ML (sodium chloride 1000ml IV soln) 2,500 ml ONCE ONCE IV 12/06/24 13:25 12/06/24 13:26 DC 12/06/24 14:15 2,500 ML (SoluMEDROL 125mg inj) 125 mg ONCE ONCE IV 12/06/24 13:25 12/06/24 13:26 DC 12/06/24 14:09 125 MG (Proventil 2.5 MG/3ML nebule) 10 mg Q1H PRN CONTNEB SOB or wheezing 12/06/24 13:25 12/06/24 13:44 10 MG Magnesium Sulfate 50 ml @ 300 mls/hr ONCE ONCE IV 12/06/24 14:45 12/06/24 14:54 DC 12/06/24 15:04 300 MLS/HR Sodium Chloride 1,000 ml @ 100 mls/hr Q10H IV 12/06/24 16:10 12/06/24 17:34 100 MLS/HR Ceftriaxone Sodium 50 ml @ 100 mls/hr ONCE ONCE IV 12/06/24 16:10 12/06/24 16:39 DC 12/06/24 16:50 100 MLS/HR Azithromycin 250 ml @ 250 mls/hr ONCE ONCE IV 12/06/24 16:10 12/06/24 17:09 DC 12/06/24 17:23 250 MLS/HR (Lopressor IV) 5 mg Q15M IV 12/06/24 16:10 12/06/24 16:55 5 MG Vital Signs 12/06/24 12/06/24 12/06/24 12/06/24 12:56 13:17 13:50 13:52 Temp 98.9 Pulse 137 127 Resp 16 20 26 B/P (MAP) 142/88 Pulse Ox 96 97 O2 Flow Rate 0 9.0 12/06/24 12/06/24 12/06/24 12/06/24 14:18 14:34 14:42 14:58 Pulse 133 123 131 124 Resp 33 24 20 24 B/P (MAP) 128/77 (94) Pulse Ox 99 97 99 100 O2 Delivery Room Air* Room Air* O2 Flow Rate 0 0 FiO2 21 21 Laboratory Tests Test 12/06/24 13:43 12/06/24 13:45 12/06/24 14:54 12/06/24 15:26 White Blood Count 12.9 H Red Blood Count 4.30 Hemoglobin 12.0 Hematocrit 36.3 Mean Corpuscular Volume 84.4 Mean Corpuscular Hemoglobin 27.9 Mean Corpuscular Hemoglobin Concent 33.0 Red Cell Distribution Width 14.4 Platelet Count 297 Mean Platelet Volume 7.1 L Neutrophils (%) (Auto) 84.8 H Lymphocytes (%) (Auto) 9.4 L Monocytes (%) (Auto) 5.7 Eosinophils (%) (Auto) 0 Basophils (%) (Auto) 0.1 Neutrophils # (Auto) 10.9 H Lymphocytes # (Auto) 1.2 Monocytes # (Auto) 0.7 Eosinophils # (Auto) 0.0 Basophils # (Auto) 0.0 CBC Comment Lactic Acid Level 2.4 H 2.6 H Troponin I High Sensitivity 6 Sodium Level 140 Potassium Level 3.8 Chloride Level 105 Carbon Dioxide Level 26.1 Anion Gap 9 Blood Urea Nitrogen 11 Creatinine 0.84 Estimated GFR/1.73 m2 83 BUN/Creatinine Ratio 13.1 Glucose Level 135 H Calcium Level 8.6 Total Bilirubin 0.3 Aspartate Amino Transf (AST/SGOT) 19 Alanine Aminotransferase (ALT/SGPT) 34 Alkaline Phosphatase 47 Pro-B-Type Natriuretic Peptide < 30 Total Protein 6.6 Albumin 3.7 Globulin 2.9 Albumin/Globulin Ratio 1.3 Procalcitonin < 0.05 Chemistry Comments Blood Gas Specimen Type Arterial Blood Gas Puncture Site Lr O2 Saturation 92.7 L Arterial Blood pH (Temp corrected) 7.438 Arterial Blood pCO2 (Temp correct) 33.7 Arterial Blood pO2 (Temp corrected) 66.3 L Arterial Blood PO2/FiO2 Ratio 3.16 Arterial Blood HCO3 22.3 Arterial Blood Base Excess -1.4 Arterial Blood Oxyhemoglobin 92.1 L Arterial Blood Carboxyhemoglobin 0.3 L Arterial Blood Methemoglobin 0.3 Arterial Blood Deoxyhemoglobin 7.3 H [place] Test Positive Blood Gas Hemoglobin 11.3 L Blood Gas Temperature 37.0 Blood Gas Modality Room air FiO2 21.0 Microbiology Date/Time Source Procedure Growth Status 12/06/24 13:50 Blood Arm Left Blood Culture - Preliminary NEGATIVE (LESS THAN 24 HOURS) Resulted Re-Evaluation Re-evaluation : Bronchodilator Tx Response: mild relief Re-Evaluation: Improved Progress Patient was seen and examined. Patient is given reassurance. The patient was having significant difficulty breathing at one point in time was unsure whether she was going to be intubated she had diaphragmatic breathing very poor peak flows barely moving any air. After multiple treatments patient is started to improve. Patient's laboratory work was reassuring her white count slightly elevated at 12.9 but no anemia neutrophils 84.8 unlikely to be infectious etiology most likely stress related lactic acid was elevated at 2.4 patient's 2nd lactic acid actually worsened to 2.6. Patient was given fluids steroids. No antibiotics were given at this time since they did not appreciate any infiltrate. Patient received Heliox nebulized treatments as well and then showed dramatic improvement. Nevertheless patient was almost intubated ABG was also obtained which shows some low oxygenation. Patient ultimately was then admitted to the hospitalist service for further workup and took care. Continuous property assessment monitor interpretation shows sinus tachycardia heart rate 100s, abnormal, my interpretation. However patient had sinus tachycardia heart rate 140s at one point. Abnormal. Pulse oximetry monitor interpretation shows normal oxygenation at 96% room air, normal, my interpretation. 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 EKG Date and Time:12/06/24 1311 Electronically Signed by: FROILAN SPIVEY MD Date and Time: 12/06/24 1512 NO PRIMARY CARE PROVIDER~ cc: ~ Chest X-Ray : Interpreted By: radiologist, both Additional Comments [address], [facility] [address] DIAGNOSTIC RADIOLOGY Patient: LULU ORTIZ Medical Record: [id number] [facility] : 2000, Age: 24 Sex: Female Location: ER Patient Status: [facility] ER Service Date/Time: 12/06/24/ 1309 Ordering Physician: JUAN MIGUEL TAPIA MD Exam: CHEST,SINGLE VIEW CHEST RADIOGRAPH Indication: CP Technique: Single frontal view of the chest was obtained COMPARISON: DI CHEST,SINGLE VIEW on DOS: 08/20/24 FINDINGS: Lines and Tubes: None Lungs: Perihilar opacities are likely within the normal range for the pulmonary vasculature. No definite airspace consolidation. Pleura: No effusion. No pneumothorax. Cardiomediastinal contours: Unremarkable Bones: Unremarkable IMPRESSION: No evidence of acute cardiopulmonary disease. Electronically Signed by:NIKOLAI MORRIS DO Date & Time: 12/06/24 1321 Dictated by: NIKOLAI MORRIS DO Dictation date and time: 12/06/24 1321 Primary Care Provider: NO PRIMARY CARE PROVIDER cc: JUAN MIGUEL TAPIA MD ~ EDMD Dr. Tapia reviewed imaging and agrees with findings above. Medical Decision Making Additional info obtained from: old records Differential Dx:Considerations: Include: anxiety, asthma, bronchitis, cardiog enic shock, CHF, COPD, dysrhythmia, myocardial infarction, panic attack, pneumonia, pneumonitis, pneumothorax, pulmonary embolism, respiratory distress, respiratory failure, sinusitis, upper resp. infection, other Departure Time of Disposition: 15:30 Disposition: 09 ADMITTED INPATIENT Admitted to Inpatient Unit: yes, to hospitalist Admission Level of Care: PCU with Tele Impression: Primary Impression: Asthma exacerbation Qualified Codes: J45.901 - Unspecified asthma with (acute) exacerbation Additional Impression: Acute respiratory distress Condition: Guarded Referrals: NO PRIMARY CARE PROVIDER (PCP) Education Educated: Patient Critical Care Note Total Time (mins): 30 Critical Care Note The very real possibility of a deterioration of this patient's condition required the highest level of my preparedness for sudden, emergent intervention. I provided critical care services, which included medication orders, frequent reevaluations of the patient's condition and response to treatment, ordering and reviewing test results, and discussing the case with various consultants. Excludes time spent performing separately billable procedures. The critical care time associated with the care of the patient was 30 minutes. Signature Scribe Signature: No scribed Attestation: The note accurately reflects work and decisions made by me.Juan Miguel Tapia MD 12/06/24 15:34 JUAN MIGUEL TAPIA MD Dec 06, 2024 13:20
--- NOTE | 2024-12-06 13:24 | RADIOLOGY REPORT ---
CHEST RADIOGRAPH Indication: CP Technique: Single frontal view of the chest was obtained COMPARISON: DI CHEST,SINGLE VIEW on DOS: 08/20/24 FINDINGS: Lines and Tubes: None Lungs: Perihilar opacities are likely within the normal range for the pulmonary vasculature. No defin ite airspace consolidation. Pleura: No effusion. No pneumothorax. Cardiomediastinal contours: Unremarkable Bones: Unremarkable IMPRESSION: No evidence of acute cardiopulmonary disease.
[2024-12-06] MEDS ORDERED: TEZE210P SQ (13:34)
[2024-12-06] MEDS: albuterol 2.5 MG/3 ML nebule CONTNEB PRN (13:44)
[2024-12-06 14:02] LABS: BASOPHILS % (AUTO) 0.1 % (0-1); EOSINOPHILS % (AUTO) 0 % (0-6); HEMATOCRIT 36.3 % (35.0-45.0); LYMPHOCYTES # (AUTO) 1.2 X10'3 (1.1-4.8); LYMPHOCYTES % (AUTO) 9.4 % (21-51); MEAN CORPUSCULAR HEMOGLOBIN 27.9 PG (27.0-31.0); MEAN CORPUSCULAR VOLUME 84.4 FL (78-98); MEAN PLATELET VOLUME 7.1 FL (7.4-10.4); MONOCYTES # (AUTO) 0.7 X10'3 (0-0.9); MONOCYTES % (AUTO) 5.7 % (2-12); NEUTROPHILS # (AUTO) 10.9 X10'3 (1.8-7.7); NEUTROPHILS % (AUTO) 84.8 % (42-75); PLATELET COUNT 297 X10'3 (140-440); RED CELL DISTRIBUTION WIDTH 14.4 % (11.5-14.5); WHITE BLOOD COUNT 12.9 X10'3 (4.5-11.0)
[2024-12-06] MEDS: methylPREDNISolone sod succ 125mg/2ml vial IV ONE (14:09)
[2024-12-06] MEDS: normal saline 1000ML IV soln IV ONE (14:15)
[2024-12-06] MEDS: albuterol 2.5 MG/3 ML nebule NEB ONE (14:25)
[2024-12-06] MEDS ORDERED: albuterol 2.5 MG/3 ML nebule NEB ONE (14:25)
[2024-12-06] MEDS: ipratropium/albuterol 3ml nebule NEB ONE (14:34)
[2024-12-06 14:39] LABS: ALANINE AMINOTRANSFERASE 34 U/L (12-78); ALBUMIN 3.7 G/DL (3.4-5.0); ALBUMIN/GLOBULIN RATIO 1.3 (1.1-1.5); ALKALINE PHOSPHATASE 47 IU/L (46-116); ANION GAP 9 (8-16); ASPARTATE AMINO TRANSFERASE 19 U/L (10-37); BILIRUBIN,TOTAL 0.3 MG/DL (0.1-1.0); BLOOD UREA NITROGEN 11 MG/DL (7-18); BUN/CREATININE RATIO 13.1 (10.0-20.0); CALCIUM 8.6 MG/DL (8.5-10.1); CHLORIDE 105 MMOL/L (99-107); CREATININE 0.84 MG/DL (0.40-0.90); GLUCOSE 135 MG/DL (70-104); POTASSIUM 3.8 MMOL/L (3.5-5.1); PRO BRAIN NATRIURETIC PEPTIDE < 30 PG/ML (0-125); SODIUM 140 MMOL/L (135-145); TOTAL CARBON DIOXIDE 26.1 MMOL/L (24-32); TOTAL PROTEIN 6.6 G/DL (6.4-8.2); eCRCL 100 ML/MIN; eGFR 83 ML/MIN
[2024-12-06 14:57] LABS: ABG BASE EXCESS -1.4 mmol/L (-2.0-3.0); ABG HCO3 22.3 mmol/L (21.0-28.0); ABG OXYGEN SATURATION 92.7 % (94.0-98.0); ABG PCO2 (T) 33.7 mmHg (32.0-45.0); ABG PH (T) 7.438 (7.350-7.450); ABG PO2 (T) 66.3 mmHg (83.0-108.0); ALLEN'S TEST POSITIVE; FCOHb 0.3 % (0.5-1.5); FHHb 7.3 % (0.0-5.0); FMetHb 0.3 % (0.0-1.5); FO2Hb 92.1 % (94.0-98.0); MODE ROOM AIR; TOTAL HEMOGLOBIN 11.3 G/dl (12.0-16.0)
[2024-12-06] MEDS: magnesium sulf-water 2g/50mL 50 ML IV ONE (15:04)
[2024-12-06] MEDS ORDERED: HYDROcodone/acetaminophen 5mg/325mg tablet PO PRN (16:10)
[2024-12-06] MEDS ORDERED: potassium Cl 40MEQ/1/2NS 520ml 520 ML IV PRN (16:10)
[2024-12-06] MEDS ORDERED: magnesium sulf-water 4G/100mL 100 ML IV PRN (16:10)
[2024-12-06] MEDS ORDERED: magnesium hydroxide 30ml (MOM) UD suspension PO PRN (16:10)
[2024-12-06] MEDS ORDERED: potassium Cl 20 mEq SR tablet PO PRN ×2 (16:10)
[2024-12-06] MEDS ORDERED: mag hydrox/Alum hydrox/simeth 30ml oral suspension PO PRN (16:10)
[2024-12-06] MEDS ORDERED: HYDROcodone/acetaminophen 10/325mg tab PO PRN (16:10)
[2024-12-06] MEDS ORDERED: ondansetron 4mg rapidly disintigrating tab PO PRN (16:10)
[2024-12-06] MEDS ORDERED: acetaminophen 325mg tablet PO PRN ×2 (16:10)
[2024-12-06] MEDS ORDERED: magnesium sulf-water 2g/50mL 50 ML IV PRN (16:10)
[2024-12-06] MEDS: metoprolol tartrate 1mg/ml inj IV SCH (16:43)
[2024-12-06] MEDS: CefTRIAXone/D5W-Rocephin 1gm 50 ML IV ONE (16:50)
[2024-12-06] MEDS: PERFLUTREN PROTEIN-A MICROSPHR (Optison) 0.22 MG/ML 3ML VIAL IV ONE (16:51)
--- NOTE | 2024-12-06 17:01 | HISTORY AND PHYSICAL ---
History & Physical Providers to CC ~ History of Present Illness Reason for Admit\Complaint: acute hypoxic respiratory failure, asthma exacerbation History of Present Illness Carly Niño is a 24-year-old female with past medical history significant for asthma and environmental allergies who presented to the ED with chief complaint of shortness of breath x 2 days. Patient states dyspnea started when she was visiting her brother in [facility] where it was windy. Patient reportedly went to ED in [facility] where she received IV steroid with improvement of symptoms which came back again shortly after. Patient denies prior GA/CAD, CVA, cardiac arrhythmia, DVT/PE, or GIB. Patient denies chest pain, palpitations, abdominal pain, n/v/d, fever, chills, dysuria, recent illness. Patient states she usually uses ICS but stopped using for the past few weeks due to side effects. Patient was admitted three times within the past year with most recent admission to ICU being 2 months ago due to acute asthma exacerbation. Last admission was 2 months ago at [facility] where she was intubated. On presentation to ED today, patient was found to be hypoxic requiring high flow oxygen at 9L which resolved after steroid and bronchodilator therapy. Given recurrent exacerbation and being at high risk for severe decompensation, patient is to be admitted for further workups and treatment. Allergies: Coded Allergies: No Known Allergies (Unverified , 12/06/24) Home Medications Home Medications Active Reported Tezspire (Tezepelumab-Ekko) 210 Mg/1.91 Ml (110 Mg/Ml) Pen.injctr Compact Space Chamber (Inhaler, Assist Devices) 1 Each Spacer Budesonide-Formoterol 160-4.5 (Budesonide/Formoterol Fumarate) 160 Mcg-4.5 Mcg/Actuation Hfa.aer.ad Albuterol Sulfate (Albuterol) 2.5 Mg/3 Ml Vial.neb Spiriva Respimat (Tiotropium [place]) 2.5 Mcg/Actuation Mist.inhal 2 Puffs DAILY Budesonide 0.25 Mg/2 Ml Ampul.neb 2 Ml NEB BID Past Medical History Past Medical History Asthma Environmental allergies Past Surgical History Surgical History Comment Denies Family History Family History: Patient reports no known family medical history. Past Social History Social History Comment Alcohol: Denies Tobacco: Denies, never Illicit drug use: Denies Living situation: Lives at home alone ROS ROS Other than positives in HPI, all 14 review of systems are negative Exam Vitals: Vital Signs Date Time Temp Pulse Resp B/P (MAP) Pulse Ox O2 Delivery O2 Flow Rate FiO2 12/06/24 16:43 119 12/06/24 14:58 24 100 12/06/24 14:42 Room Air* 0 21 12/06/24 14:18 128/77 (94) 12/06/24 12:56 98.9 General: A&Ox 3, NAD HEENT: Normocephalic, PERRLA Neck: Supple, trachea midline, no JVD Chest: Clear to auscultation bilaterally Cardiovascular: RRR, Tachycardic Abdomen: Soft and nontender Extremities: No cyanosis/clubbing/or edema Central Nervous System: CN II-XII intact, no focal deficits Musculoskeletal: No paraspinal muscle tenderness, no muscle spasm Skin: Warm and intact Diagnostic Data Last Recorded Lab Results: 12/06/24 1343 12/06/24 1345 Problems: (1) Asthma exacerbation Status: Acute Additional Plan # Acute asthma exacerbation # Acute hypoxic respiratory failure # Sepsis- unknown source -EKG sinus tachycardia at 134bpm, no ST elevation/depression -bolus IVF followed by continuous IVF, start steroid, bronchodilator, empirical abx, supplemental oxygen, metoprolol tart target <110 -follow CTA chest, repeat lactic acid, UA, HCG, blood culture DVT/VTE prophylaxis: heparin Code status: Full code I spent a total of 35 minutes discussing Advanced Care Planning measures with the patient. Advance care planning: Discussed with patient the importance of advance care planning in case of emergent situation. We discussed various resuscitative measures/ ACP with the patient at the time of admission. Patient voiced understanding and patient has decided on a full code status. Date of Service: Dec 06, 2024 Billing Provider: OVIDIO KHAN Common Visit Codes: 27052-[id number] INP/OBS CARE (HIGH) Secondary Visit Codes: 60414-[id number] CARE PLAN 30 MINUTES Problem Qualifiers (1) Asthma exacerbation: Asthma severity: moderate Asthma persistence: unspecified Qualified Codes: J45.901 - Unspecified asthma with (acute) exacerbation OVIDIO KHAN Dec 06, 2024 17:01
[2024-12-06] MEDS: azithromycin/NS 500mg/250ml 250 ML IV ONE (17:23)
[2024-12-06] MEDS: normal saline 1000ml 1,000 ML IV SCH (17:34)
[2024-12-06] MEDS ORDERED: iohexol 350MG/ML 100ml bottle IV ONE (18:06)
[2024-12-06 18:36] LABS: HCG SERUM QL NEGATIVE
[2024-12-06] MEDS: ipratropium/albuterol 3ml nebule NEB SCH (18:58)
[2024-12-06 19:01] LABS: URINE AMPHETAMINE SCREEN NEGATIVE (Neg); URINE BARBITUATE SCREEN NEGATIVE (Neg); URINE BENZODIAZEPINES SCREEN NEGATIVE (Neg); URINE CANNABINOID SCREEN NEGATIVE (Neg); URINE COCAINE SCREEN NEGATIVE (Neg); URINE METHADONE SCREEN NEGATIVE (Neg); URINE OPIATE SCREEN NEGATIVE (Neg); URINE PHENCYCLIDINE SCREEN NEGATIVE (Neg)
[2024-12-06 19:27] LABS: BILIRUBIN,URINE NEGATIVE (Neg); CLARITY,URINE CLEAR (Clear); COLOR,URINE YELLOW (Yellow); GLUCOSE, URINE NEGATIVE (Neg); KETONES,URINE TRACE mg/dl (Neg); LEUKOCYTE ESTERASE ,URINE NEGATIVE (Neg); NITRITES, URINE NEGATIVE (Neg); OCCULT BLOOD,URINE NEGATIVE (Neg); PROTEIN,URINE NEGATIVE (Neg); UROBILINOGEN,URINE 0.2 E.U/dL (0.2-1.0)
[2024-12-06 19:28] LABS: UA COLLECTION TYPE CLN CATCH MIDSTREAM
[2024-12-06] MEDS ORDERED: heparin, porcine 5000 units/ml vial SQ SCH (20:00)
[2024-12-06] MEDS ORDERED: metoprolol tartrate 1mg/ml inj IV PRN (20:00)
[2024-12-06] MEDS: docusate sod 100mg capsule PO SCH (20:00)
[2024-12-06] MEDS: K and/or MAG REPLACEMENT MC SCH (20:00)
[2024-12-06] MEDS: metoprolol tartrate 50mg tablet PO SCH (20:46)
[2024-12-06] MEDS: methylPREDNISolone sod succ 125mg/2ml vial IV SCH (20:51)
[2024-12-06] MEDS: heparin, porcine 5000 units/ml vial SQ SCH (21:00)
--- NOTE | 2024-12-06 21:17 | RADIOLOGY REPORT ---
CTA Chest with intravenous contrast INDICATION: resp failure COMPARISON: None TECHNIQUE: Multidetector spiral CTA of the chest was performed of the chest with intravenous contrast . PULMONARY ANGIOGRAPHY PROTOCOL was utilized using a bolus-tracking technique centered on the main p ulmonary artery. Axial, coronal and sagittal multiplanar and MIP reformats were performed. Radiation Dose : 1. Chest: CTDI volume is 32.16 mGy. Dose-length product is 443.22 mGy*cm The dose indicators for CT are the volume Computed Tomography (CT) Dose Index (CTDIvol) and the Dose Length Product (DLP), and are measured in units of mGy and mGy-cm, respectively. These indicators are not patient dose, but values generated from the CT scanner acquisition factors. The report includes radiation exposure data for exposures received during this examination. Findings: Pulmonary artery: No pulmonary embolism. The main pulmonary artery measures 3.2 cm in the ascending aorta measures 2.8 cm. Lower neck: Normal thyroid. Lungs: No focal consolidation, pleural effusion or pneumothorax. Heart/Vascular Structures: Normal heart size. Trace pericardial effusion versus thickening. Lymph Nodes: No adenopathy Musculoskeletal: No acute osseous abnormality. Soft tissues: Normal. Upper abdomen: Limited portions of the upper abdomen are unremarkable. IMPRESSION: 1. No pulmonary embolism. 2. No acute thoracic finding. 3. Trace pericardial effusion versus thickening.
[2024-12-06] MEDS: diphenhydrAMINE 25mg capsule PO ONE (23:59)
[2024-12-07] VITALS (18 sets, daily range): BP systolic 91–155; BP diastolic 52–98; PULSE 67–94; RESP 14–24; TEMP 97.6–98.8; O2SAT 94–100
[2024-12-07 02:07] LABS: BASOPHILS % (AUTO) 0.2 % (0-1); EOSINOPHILS % (AUTO) 0.2 % (0-6); HEMATOCRIT 36.4 % (35.0-45.0); LYMPHOCYTES # (AUTO) 0.5 X10'3 (1.1-4.8); MEAN PLATELET VOLUME 7.6 FL (7.4-10.4); MONOCYTES # (AUTO) 0.1 X10'3 (0-0.9); MONOCYTES % (AUTO) 1.4 % (2-12); NEUTROPHILS # (AUTO) 9.3 X10'3 (1.8-7.7); NEUTROPHILS % (AUTO) 93.2 % (42-75); PLATELET COUNT 262 X10'3 (140-440); RED BLOOD COUNT 4.28 X10'6 (4.20-5.60); RED CELL DISTRIBUTION WIDTH 14.6 % (11.5-14.5)
[2024-12-07 02:21] LABS: ALANINE AMINOTRANSFERASE 30 U/L (12-78); ALBUMIN 3.5 G/DL (3.4-5.0); ALBUMIN/GLOBULIN RATIO 1.2 (1.1-1.5); ALKALINE PHOSPHATASE 47 IU/L (46-116); ANION GAP 12 (8-16); ASPARTATE AMINO TRANSFERASE 19 U/L (10-37); BILIRUBIN,TOTAL 0.5 MG/DL (0.1-1.0); BLOOD UREA NITROGEN 9 MG/DL (7-18); BUN/CREATININE RATIO 15.8 (10.0-20.0); CALCIUM 8.7 MG/DL (8.5-10.1); CHLORIDE 107 MMOL/L (99-107); CREATININE 0.57 MG/DL (0.40-0.90); GLUCOSE 121 MG/DL (70-104); MAGNESIUM 2.4 MG/DL (1.5-2.4); SODIUM 141 MMOL/L (135-145); TOTAL PROTEIN 6.4 G/DL (6.4-8.2); eCRCL 148 ML/MIN; eGFR > 90 ML/MIN
[2024-12-07] MEDS: albuterol 2.5 MG/3 ML nebule NEB SCH (04:00)
[2024-12-07] MEDS: albuterol 2.5 MG/3 ML nebule NEB PRN (05:24)
[2024-12-07] MEDS: azithromycin/NS 500mg/250ml 250 ML IV SCH (07:19)
[2024-12-07] MEDS: budesonide 0.5mg/2ml UD nebule IH SCH (07:20)
--- NOTE | 2024-12-07 08:24 | ELECTROCARDIOGRAPH REPORT ---
[facility] Test Date: 2024-12-07 Test Time: 00:55:16 Pat Name: LULU ORTIZ Department: ORTHO/NEURO Room: ORTHO [facility] A Gender: F Leadership Program Associate: : 2000 Requested By: OVIDIO KHAN Order Number: [id number] Reading MD: Dr. James Rodriguez Measurements Intervals [place] Rate: 77 P: 13 VT: 133 QRS: 52 QRSD: 83 T: 31 QT: 391 QTc: 443 Interpretive Statements Sinus rhythm ST elev, probable normal early repol pattern Electronically Signed On 12-07-2024 20:55:[address] James Rodriguez Please click the below link to view image of tracing.
[2024-12-07] MEDS: CefTRIAXone/D5W-Rocephin 1gm 50 ML IV SCH (09:39)
--- NOTE | 2024-12-07 13:28 | PROGRESS NOTE ---
Daily Progress Note Providers to CC ~ Antibiotic Timeout Antibiotic Ordered?: Yes MRSA Education MRSA Education Provided to pt: Yes Subjective No acute events overnight. Patient examined at bedside. No new complaints, not in acute distress. Patient denies chest pain, sob, palpitations, abdominal pain, n/v/d. Vss, on room air, labs notable for normalized repeat lactic acid and white count. UA negative. Objective Vital Signs Date Time Temp Pulse Resp B/P (MAP) Pulse Ox O2 Delivery O2 Flow Rate FiO2 12/07/24 12:37 93 18 Room Air 12/07/24 12:30 96 0 21 12/07/24 10:00 98.3 102/67 (79) Result Diagram: 12/07/24 0149 12/07/24 014 Physical Exam General: A&Ox 3, NAD HEENT: Normocephalic, PERRLA Neck: Supple, trachea midline, no JVD Chest: Clear to auscultation bilaterally Cardiovascular: RRR, S1&S2 GI: Soft and nontender Extremities: No cyanosis/clubbing/or edema BACK TENDER FOURDRINIER: CN II-XII intact, no focal deficits Musculoskeletal: No paraspinal muscle tenderness, no muscle spasm Skin: Warm and intact Problem\Assessment\Plan Problems/Diagnosis: (1) Asthma exacerbation # Acute asthma exacerbation # Acute hypoxic respiratory failure # Community-acquired pneumonia- POA # Lactic acidosis 2/2 severe hypoxemia -EKG sinus tachycardia at 134bpm, no ST elevation/depression -bolus IVF followed by continuous IVF, start steroid, bronchodilator, empirical abx, supplemental oxygen, metoprolol tart target <110 -follow CTA chest, repeat lactic acid, UA, HCG, blood culture -12/07: repeat lactic acid normalized, UA negative, CTA unremarkable, procal negative DVT/VTE prophylaxis: heparin Code status: Full code I spent a total of 35 minutes discussing Advanced Care Planning measures with the patient. Advance care planning: Discussed with patient the importance of advance care planning in case of emergent situation. We discussed various resuscitative measures/ ACP with the patient at the time of admission. Patient voiced understanding and patient has decided on a full code status. Date of Service: Dec 07, 2024 Billing Provider: OVIDIO KHAN Common Visit Codes: 24611-[id number] INP/OBS CARE(HIGH) Problem Qualifiers (1) Asthma exacerbation: Qualified Codes: J45.901 - Unspecified asthma with (acute) exacerbation OVIDIO KHAN [facility] Dec 07, 2024 13:28
--- NOTE | 2024-12-07 18:41 | CARDIOLOGY REPORT ---
APPROVED REPORT EXAM: Comprehensive 2D, Doppler, and color-flow Echocardiogram. Patient Location: 4011 A Heart Rate: 87 bpm Rhythm: SINUS Indications ARRHYTHMIA SHORTNESS OF BREATH Meter Maintenance Person: NONE Previous echo: NONE 2D Dimensions IVSd 0.8 (0.7-1.1cm) LVDd 4.5 cm PWd 0.8 (0.7-1.1cm) IVSs 1.1 (0.8-1.2cm) LVDs 2.9 (2.5-4.0cm) PWs 1.3 (0.8-1.2cm) LVOT Diameter 2.06 (1.8-2.4cm) LVEF(%) 66.5 (>50%) Ao Asc Diam.2.49 cmIVC 10.69 mm FS (%) 36.6 % SV 62.5 ml CO 5.6 L/min M-Mode Dimensions Left Atrium(MM) 3.65 (2.5-4.0cm) Aortic Root 2.88 (2.2-3.7cm) Aortic Cusp Exc 2.10 (1.5-2.0cm) MV EPSS 0.6 (<0.5cm) Aortic Valve AoV Peak Harpreet. 117.2 cm/s AoV VTI 21.5 cm AO Peak GR. 5.5 mmHg AO Mean GR. 3 mmHg LVOT VTI 17.23 cm LVOT Peak Harpreet. 95.2 cm/s KYLER(VTI)/BSA 2.67 cm2/m2 KYLER (VTI) 2.67 cm2 Mitral Valve MV E Velocity 82.5 cm/s MV DECEL TIME 172 ms MV A Velocity 67.7 cm/s E/A Ratio 1.2 LEFT VENTRICLE Normal LV size and wall thickness. Overall systolic function is normal. LVEF is 60-65%. RIGHT VENTRICLE RV is normal size and function. ATRIA The left atrium size is normal. AORTIC VALVE Trileaflet AV appears normal without stenosis. Trivial insufficiency. MITRAL VALVE Mild MV annular calcification without obvious stenosis. Trace regurgitation. TRICUSPID VALVE TV appears structurally normal with trace regurgitation. PULMONIC VALVE Normal PV without stenosis, physiologic insufficiency. GREAT VESSELS The aortic root is normal in size. The ascending aorta is normal in size. IVC is normal in size and c ollapses greater than 50% with inspiration. PERICARDIUM Normal pericardium. No effusion. Incidental finding: Irregular appearing liver mass Other Information Study Quality: Adequate Conclusion Normal LV size and wall thickness. Overall systolic function is normal. LVEF is 60-65%. RV is normal size and function. The left atrium size is normal. Trileaflet AV appears normal without stenosis. Trivial insufficiency. Mild MV annular calcification without obvious stenosis. Trace regurgitation. TV appears structurally normal with trace regurgitation. Normal pericardium. No effusion. Incidental finding: Irregular appearing liver mass
[2024-12-08] VITALS (39 sets, daily range): BP systolic 100–146; BP diastolic 60–96; PULSE 61–132; RESP 12–35; TEMP 97.9; O2SAT 94–100
[2024-12-08 05:07] LABS: BASOPHILS % (AUTO) 0.1 % (0-1); EOSINOPHILS % (AUTO) 0 % (0-6); LYMPHOCYTES # (AUTO) 0.4 X10'3 (1.1-4.8); LYMPHOCYTES % (AUTO) 4.2 % (21-51); MEAN CORPUSCULAR HGB CONC 33.2 g/dL (33.0-36.5); MEAN CORPUSCULAR VOLUME 84.6 FL (78-98); MONOCYTES # (AUTO) 0.2 X10'3 (0-0.9); MONOCYTES % (AUTO) 2.2 % (2-12); NEUTROPHILS # (AUTO) 8.6 X10'3 (1.8-7.7); NEUTROPHILS % (AUTO) 93.5 % (42-75); PLATELET COUNT 252 X10'3 (140-440); RED BLOOD COUNT 3.91 X10'6 (4.20-5.60); RED CELL DISTRIBUTION WIDTH 14.6 % (11.5-14.5); WHITE BLOOD COUNT 9.2 X10'3 (4.5-11.0)
[2024-12-08 05:27] LABS: ALANINE AMINOTRANSFERASE 27 U/L (12-78); ALBUMIN 3.1 G/DL (3.4-5.0); ALBUMIN/GLOBULIN RATIO 1.2 (1.1-1.5); ALKALINE PHOSPHATASE 41 IU/L (46-116); ANION GAP 10 (8-16); ASPARTATE AMINO TRANSFERASE 15 U/L (10-37); BILIRUBIN,TOTAL 0.4 MG/DL (0.1-1.0); BLOOD UREA NITROGEN 11 MG/DL (7-18); BUN/CREATININE RATIO 21.2 (10.0-20.0); CALCIUM 8.2 MG/DL (8.5-10.1); CHLORIDE 106 MMOL/L (99-107); CREATININE 0.52 MG/DL (0.40-0.90); GLUCOSE 119 MG/DL (70-104); MAGNESIUM 2.2 MG/DL (1.5-2.4); POTASSIUM 3.9 MMOL/L (3.5-5.1); SODIUM 141 MMOL/L (135-145); TOTAL CARBON DIOXIDE 25.5 MMOL/L (24-32); TOTAL PROTEIN 5.6 G/DL (6.4-8.2); eCRCL 162 ML/MIN; eGFR > 90 ML/MIN
[2024-12-08] MEDS ORDERED: rocuronium 10mg/ml inj IV ONE (08:00)
[2024-12-08] MEDS: morphine 10mg/0.5ml (conc. morphine) oral syringe PO ONE (08:25)
[2024-12-08] MEDS ORDERED: albuterol 2.5 MG/3 ML nebule NEB PRN (08:35)
--- NOTE | 2024-12-08 08:37 | RADIOLOGY REPORT ---
EXAM: DI CHEST,SINGLE VIEW Indication: pain Technique: Single frontal view of the chest was obtained Comparison: DI CHEST,SINGLE VIEW on DOS: 12/06/24, DI CHEST,SINGLE VIEW on DOS: 08/20/24, DI CHEST,SINGL E VIEW on DOS: 01/08/24, DI CHEST,SINGLE VIEW on DOS: 12/16/23, DI CHEST,SINGLE VIEW on DOS: 12/12/23 FINDINGS: Lines and Tubes: None Lungs: No focal consolidation. Pleura: No effusion. No pneumothorax. Cardiomediastinal contours: Unremarkable Bones: No acute osseous abnormality. IMPRESSION: No acute cardiopulmonary disease.
[2024-12-08] MEDS: midazolam 1 mg/ML 2ml injection ONE (09:00)
[2024-12-08] MEDS: fentaNYL/PF 50MCG/1 ML 2ML syringe ONE (09:00)
[2024-12-08] MEDS: FENTANYL-0.9 % NACL/PF 100 ML IV SCH (09:21)
[2024-12-08] MEDS ORDERED: METO-395 PO (09:22)
[2024-12-08] MEDS ORDERED: ALBU10.7 PO (09:22)
[2024-12-08] MEDS ORDERED: CHOL500049 PO (09:22)
[2024-12-08] MEDS ORDERED: IPRA3AMP31 NEB (09:22)
[2024-12-08] MEDS ORDERED: [UNRECOGNIZED DRUG - CODE] NEB (09:22)
[2024-12-08] MEDS ORDERED: PRE5T PO (09:22)
[2024-12-08] MEDS ORDERED: IVAB5TAB3 PO (09:22)
[2024-12-08] MEDS: propofol 1000mg/100ml bottle 100 ML IV SCH (09:32)
--- NOTE | 2024-12-08 09:49 | RADIOLOGY REPORT ---
EXAM: DI CHEST,SINGLE VIEW Indication: ET Tube PLacement Technique: Single frontal view of the chest was obtained Comparison: DI CHEST,SINGLE VIEW on DOS: 12/08/24, DI CHEST,SINGLE VIEW on DOS: 12/06/24, DI CHEST,SINGLE VIEW on DOS: 08/20/24, DI CHEST,SINGLE VIEW on DOS: 01/08/24, DI CHEST,SINGLE VIEW on DOS: 12/16/23 FINDINGS: Lines and Tubes: Endotracheal tube projects 4.1 cm above the delta. Lungs: No focal consolidation. Pleura: No effusion. No pneumothorax. Cardiomediastinal contours: Unremarkable Bones: No acute osseous abnormality. IMPRESSION: Endotracheal tube in appropriate position.
[2024-12-08] MEDS: rocuronium 10mg/ml inj IV ONE ×2 (10:05→11:28)
[2024-12-08 10:34] LABS: ABG BASE EXCESS -2.1 mmol/L (-2.0-3.0); ABG HCO3 19.7 mmol/L (21.0-28.0); ABG OXYGEN SATURATION 99.7 % (94.0-98.0); ABG PCO2 (T) 25.6 mmHg (32.0-45.0); ABG PH (T) 7.504 (7.350-7.450); ABG PO2 (T) 500.5 mmHg (83.0-108.0); ALLEN'S TEST POSITIVE; FCOHb 0.2 % (0.5-1.5); FHHb 0.3 % (0.0-5.0); FMetHb 0.2 % (0.0-1.5); FO2Hb 99.3 % (94.0-98.0); MODE VENT - AC/PRVC; PEEP 5 cm H2O; RESPIRATORY RATE 16 b/min; TIDAL VOLUME 350 mL; TOTAL HEMOGLOBIN 12.1 G/dl (12.0-16.0)
[2024-12-08] MEDS: COMMUNICATION ORDER 1 EA MISC MC ONE (10:40)
[2024-12-08] MEDS: CISatracurium besylate inj. 100 MG in normal saline 100ml IV soln 90 ML IV PRN (11:18)
[2024-12-08 11:33] LABS: BASOPHILS % (AUTO) 0.1 % (0-1); EOSINOPHILS % (AUTO) 0 % (0-6); HEMATOCRIT 35.3 % (35.0-45.0); LYMPHOCYTES # (AUTO) 0.2 X10'3 (1.1-4.8); LYMPHOCYTES % (AUTO) 2.4 % (21-51); MEAN CORPUSCULAR HEMOGLOBIN 28.2 PG (27.0-31.0); MEAN CORPUSCULAR HGB CONC 33.9 g/dL (33.0-36.5); MEAN CORPUSCULAR VOLUME 83.2 FL (78-98); MONOCYTES # (AUTO) 0.4 X10'3 (0-0.9); MONOCYTES % (AUTO) 3.8 % (2-12); NEUTROPHILS # (AUTO) 9.4 X10'3 (1.8-7.7); NEUTROPHILS % (AUTO) 93.7 % (42-75); PLATELET COUNT 269 X10'3 (140-440); RED BLOOD COUNT 4.24 X10'6 (4.20-5.60); RED CELL DISTRIBUTION WIDTH 14.5 % (11.5-14.5); WHITE BLOOD COUNT 10.1 X10'3 (4.5-11.0)
--- NOTE | 2024-12-08 11:53 | [facility] CONSULT REPORT ---
[facility] Procedure Note [facility] Procedure Note Consult [facility] Note # Demographics Consult Type: General Neurology Patient Location: Inpatient First Name: Carly Last Name: Salinas Date of : 2000 Age: 24 Gender: Female Facility: [facility] Time of Initial Page (): 12/08/2024 10:02 Time of Return Call (): 12/08/2024 10:02 # HPI History: 24yof who is admitted for asthma exacerbation. She became somnolent, required higher O2. Was intubated and then had concern for seizure like activity. # Scores Time of exam and NIHSS (): 12/08/2024 10:45 Level of Consciousness 1a: [3] = Responds only with reflex motor or unresponsive LOC Questions 1b: [2] = Answers neither correctly LOC Commands 1c: [2] = Performs neither correctly Best Gaze 2: [0] = Normal Visual 3: [0] = No visual loss Facial Palsy 4: [0] = Normal symmetrical movements Motor Arm Left 5a: [2] = Some effort against gravity Motor Arm Right 5b: [2] = Some effort against gravity Motor Leg Left 6a: [3] = No effort against gravity Motor Leg Right 6b: [3] = No effort against gravity Limb Ataxia 7: [0] = Absent Sensory 8: [0] = Normal Best Language 9: [3] = Mute Dysarthria 10: [0] = Normal Extinction and Inattention 11: [0] = No abnormality NIHSS Total: 20 # Exam Additional Neurologic Exam: Max propofol 50mcg # Assessment Impression: Seizure activity possibly provoked in setting of acute hypoxic respiratory failure, unclear if she has a history of seizure in the past. no family at bedside. Recommend following workup as below # Plan Imaging: (urgency: STAT): - CT Angiogram Head and CT Angiogram Neck AND call back with results if abnormal Pending CTs Imaging: (urgency: routine): - MRI Brain with AND without contrast Diagnostic Test: - EEG LTEEG if no return to baseline Other: - If patient has any neurological deterioration please call me back immediately # Demographics First Name: Carly Last Name: Salinas Facility: [facility] Neuro Consult Order placed for: Yes RAMSEY GUTIERREZ MD Dec 08, 2024 11:53
--- NOTE | 2024-12-08 12:03 | [facility] NEURO CONSULT REPORT ---
[facility] Procedure Note [facility] Procedure Note Consult [facility] Note # Demographics Type of EEG Read: - Continuous EEG - hook-up - video Patient Location: - Inpatient - STAT read requested First Name: Carly Last Name: Salinas Date of : 2000 Age: 24 Facility: [facility] Time of Initial Page (): 12/08/2024 11:10 Time of Return Call ( Time): 12/08/2024 11:11 # EEG Interpretation Start Time of EEG Read ( Time): 12/08/2024 11:15 Stop Time of EEG Read (): 12/08/2024 12:09 Duration: 0h 54m Technical Details: - This study was recorded using the [employer] EEG software - The EEG electrodes were placed using the standard International 10-20 system of electrode placement. Video and an accessory EKG lead were used during the course of this study. Indication: - altered mental status # Description Photic Stimulation: NOT Performed Hyperventilation: NOT performed Phases Captured: - unresponsive Symmetry: symmetric Posterior Dominant Rhythm: The record is continuous, of normal amplitude and bilaterally symmetrical. There was no clear posterior dominant rhythm captured. There is a excessive amount of diffuse low amplitude 15-25 Hz beta activity and moderate amount of 4-7 Hz theta activity. Occasional <4 Hz delta activity is present. With drowsiness, there is attenuation of the background alpha activity and a shift to slower frequencies. Amplitude: normal Reactivity: unclear Variability: unclear Continuity: continuous EKG: artifactual # Abnormalities Epileptiform Abnormalities: - NOT present Focal Slowing: no Seizure: - NOT present No push button events # Impression Impression: abnormal 1. Diffuse Slowing 2. Excess Beta # Clinical Correlation Clinical Correlation: 1. Diffuse slowing is non-specific and may be seen in the setting of diffuse cerebral dysfunction; such as toxic/metabolic/infectious encephalopathy or heavily sedating medication use. 2. Excess beta is a non-specific finding but may be seen in the setting of Benzodiazepine or Barbiturate use # Demographics First Name: Carly Last Name: Salinas Facility: [facility] Neuro Consult Order placed for: Yes LOLY SLADE MD Dec 08, 2024 12:02
--- NOTE | 2024-12-08 12:08 | CONSULTATION REPORT ---
Consult Providers to CC ~ History of Present Illness Reason for Admit\Complaint: Respiratory distress History of Present Illness 24-year-old patient was admitted through the emergency department with a chief complaint of dyspnea that started when she was visiting her brother in the [place] area. The patient reports frequent use of a bronchodilators until [facility] who gave her IV steroids. Symptoms worsened when she rode in her brother's car where she was vaping. She arrived to the emergency department with a dyspnea. She is currently being treated with IV steroids i.e. methylprednisolone at 62.5 mg IV q.6 hours and bronchodilator therapy with albuterol nebulizers q.4 hours. She has a background history of asthma. She has been seen 3 times in acute Healthcare settings for her asthma within the past 12 months. She does have a tracheostomy dayana on her neck. I was called to see the patient this morning by the respiratory therapist because he was concerned of a respiratory status. I arrived to see the patient who was obtunded, in respiratory distress and tachypneic with respirations in the 50s-60s. She was on BiPAP. The patient was transferred to the ICU where she was subsequently intubated. Allergies: Coded Allergies: No Known Allergies (Unverified , 12/06/24) Home Medications Home Medications Active Reported predniSONE tablet (Prednisone) 5 Mg Tablet 1 Tab PO DAILY Metoprolol Succinate 25 Mg Tab.sr.24h 1 Tab PO DAILY Vitamin D3 (Cholecalciferol (Vitamin D3)) 1,250 Mcg (97804 Unit) Capsule 1 Cap PO Q7D Cromolyn Sodium 20 Mg/Ml Solution 1 Ml NEB TID PRN Ivabradine HCl 5 Mg Tablet 1 Tab PO DAILY Airsupra 90-80 Mcg Inhaler (Albuterol Sulfate/Budesonide) 90 Mcg-80 Mcg/Actuation Hfa.aer.ad 2 Puffs PO Q4H PRN Duoneb 2.5-0.5 Mg/3 Ml Soln (Ipratropium/Albuterol Sulfate) 0.5 Mg-3 Mg (2.5 Mg Base)/3 Ml Ampul.neb 1 Vial NEB Q4H PRN Tezspire (Tezepelumab-Ekko) 210 Mg/1.91 Ml (110 Mg/Ml) Pen.injctr 210 Mg SQ Q4W Budesonide-Formoterol 160-4.5 (Budesonide/Formoterol Fumarate) 160 Mcg-4.5 Mcg/Actuation Hfa.aer.ad 2 Puffs IH BID Albuterol Sulfate (Albuterol) 2.5 Mg/3 Ml Vial.neb 2 Puffs IH Q4H PRN Past Medical History Past Medical History Asthma Family History Family History: Patient reports no known family medical history. Past Social History Social History Comment Never smoker Exam Vitals: Vital Signs Date Time Temp Pulse Resp B/P (MAP) Pulse Ox O2 Delivery O2 Flow Rate FiO2 12/08/24 10:39 122 27 98 30 12/08/24 09:32 125/86 12/08/24 08:00 Room Air 12/08/24 07:57 0 12/08/24 06:53 97.9 General: In respiratory distress prior to intubation HEENT: N/C/AT, PERRLA, EOMI Neck: Supple, with no jugular venous distention and no lymphadenopathy. Chest: Symmetric expansion bilaterally. Cardiovascular: Normal S1 and S2 without any S3-S4 gallop. Abdomen: Soft nontender Extremities: No cyanosis, no clubbing and edema. Central Nervous System: Obtunded Diagnostic Data Last Recorded Lab Results: 12/08/24 1115 12/08/24 0439 Additional Plan Acute respiratory failure: Patient now intubated on mechanical ventilation sedated with a combination of propofol and fentanyl at 50 mcg/kg per minute and 350 mcg an hour respectively. Nimbex ordered. Acute asthma exacerbation: Patient did not have any breath sounds prior to intubation but had clear breath sounds after intubation and did not seem to have any bronchospasm on mechanical ventilation i.e. peak air pressures were only 12. This raises the question whether the patient has VCD i.e. vocal cord dysfunction syndrome. History of asthma: She also has been on biologics, namely Tezepelumab. She has a background history of mechanical ventilation with tracheostomy. She was also on Symbicort and cromolyn. Altered level of consciousness: EEG and CAT scan of the head ordered. Neurology consultation with codi vila also ordered. CHF: On ivabradine, a medication used for patients with a history of CHF. Mild hyponatremia Mild anemia of chronic disease Plan: Continue mechanical ventilation with sedation and neuromuscular paralysis for now. Continue bronchodilator therapy and IV steroids. Follow CAT scan of the head and EEG results. Vent bundle Code status: Full code Sedation/analgesia: Fentanyl and propofol drips Neuromuscular paralysis: Nimbex drip Prophylaxis: Protonix and subcu heparin Overall prognosis: Guarded Critical care time: 35 minutes. ZORAN PALMER MD Dec 08, 2024 12:08
--- NOTE | 2024-12-08 12:42 | RADIOLOGY REPORT ---
EXAM: CT CT HEAD INDICATION: Possible seizure TECHNIQUE: CT of the head without intravenous contrast. Radiation Dose : 1. Head: CT Dose: CTDI volume is 61 mGy. Dose-length product is 1232 mGy*cm The dose indicators for CT are the volume Computed Tomography (CT) Dose Index (CTDIvol) and the Dose Length Product (DLP), and are measured in units of mGy and mGy-cm, respectively. These indicators are not patient dose, but values generated from the CT scanner acquisition factors. The report includes radiation exposure data for exposures received during this examination. COMPARISON: None FINDINGS: There is no evidence of acute intracranial hemorrhage, extra-axial collection, mass effect, midline s hift, herniation or hydrocephalus. The ventricles, sulci and cisterns are age appropriate. The ruff-white differentiation is intact. The visualized paranasal sinuses and mastoid air cells are clear. The surrounding soft tissues and osseous structures are unremarkable. IMPRESSION: No acute intracranial abnormality. Radiation optimization: All CT scans at this facility use at least one of these dose optimization merlene hniques: automated exposure control mA and/or kV adjustment per patient size (includes targeted exam s where dose is matched to clinical indication) or iterative reconstruction.
[2024-12-08] MEDS ORDERED: acetaminophen 325mg tablet OGT PRN ×2 (12:46)
[2024-12-08] MEDS ORDERED: mag hydrox/Alum hydrox/simeth 30ml oral suspension OGT PRN (12:47)
[2024-12-08 12:48] LABS: ALANINE AMINOTRANSFERASE 26 U/L (12-78); ALBUMIN 3.6 G/DL (3.4-5.0); ALBUMIN/GLOBULIN RATIO 1.3 (1.1-1.5); ALKALINE PHOSPHATASE 40 IU/L (46-116); ANION GAP 16 (8-16); ASPARTATE AMINO TRANSFERASE 13 U/L (10-37); BILIRUBIN,TOTAL 0.5 MG/DL (0.1-1.0); BLOOD UREA NITROGEN 14 MG/DL (7-18); BUN/CREATININE RATIO 20.6 (10.0-20.0); CALCIUM 8.8 MG/DL (8.5-10.1); CHLORIDE 104 MMOL/L (99-107); CREATININE 0.68 MG/DL (0.40-0.90); GLUCOSE 111 MG/DL (70-104); MAGNESIUM 2.1 MG/DL (1.5-2.4); POTASSIUM 3.4 MMOL/L (3.5-5.1); SODIUM 140 MMOL/L (135-145); TOTAL CARBON DIOXIDE 20.4 MMOL/L (24-32); TOTAL PROTEIN 6.3 G/DL (6.4-8.2); eCRCL 124 ML/MIN; eGFR > 90 ML/MIN
[2024-12-08 12:50] LABS: PHOSPHORUS 3.3 MG/DL (2.3-4.5)
[2024-12-08] MEDS ORDERED: HYDROcodone/acetaminophen 7.5MG/325MG per 15ml UD CUP PO PRN (12:52)
[2024-12-08] MEDS ORDERED: HYDROcodone/acetaminophen 7.5MG/325MG per 15ml UD CUP OGT PRN ×2 (12:53)
[2024-12-08] MEDS: fentaNYL/NS/PF 2,500 mcg/250mL 250 ML IV SCH (14:57)
[2024-12-08 15:45] LABS: ABG BASE EXCESS -1.2 mmol/L (-2.0-3.0); ABG HCO3 22.1 mmol/L (21.0-28.0); ABG OXYGEN SATURATION 99.1 % (94.0-98.0); ABG PCO2 (T) 32.1 mmHg (32.0-45.0); ABG PH (T) 7.456 (7.350-7.450); ABG PO2 (T) 148.2 mmHg (83.0-108.0); ALLEN'S TEST POSITIVE; FCOHb 0.1 % (0.5-1.5); FHHb 0.9 % (0.0-5.0); FMetHb 0.3 % (0.0-1.5); FO2Hb 98.7 % (94.0-98.0); MODE VENT - AC/PRVC; PEEP 5 cm H2O; RESPIRATORY RATE 12 b/min; TIDAL VOLUME 350 mL; TOTAL HEMOGLOBIN 11.1 G/dl (12.0-16.0)
[2024-12-08] MEDS: POTASSIUM CHLORIDE 20 MEQ/15 ML oral solution OGT PRN (17:28)
[2024-12-08] MEDS: budesonide 0.5mg/2ml UD nebule IH SCH (19:33)
[2024-12-08] MEDS: docusate sodium 100mg/10ml UD cup OGT SCH (19:59)
[2024-12-08] MEDS: metoprolol tartrate 50mg tablet OGT SCH (20:00)
--- NOTE | 2024-12-08 20:35 | PROGRESS NOTE ---
Progress Note Dictate Providers to CC Acute hypoxic resp failure Asthma ~ Central Line/PICC still needed: N\A Central Line/PICC Necessity: Hemodynamic Monitoring Sin Indications Met/Not Met: F/C Indications Met Antibiotic Ordered?: Yes MRSA Education MRSA Education Provided to pt: N/A Objective Vitals Vital Signs Date Time Temp Pulse Resp B/P (MAP) Pulse Ox O2 Delivery O2 Flow Rate FiO2 12/08/24 20:00 69 12/08/24 20:00 12 106/72 (83) 97 Mechanical Ventilator 12/08/24 19:43 21 12/08/24 18:00 98.6 12/08/24 12:09 Lab Results: 12/08/24 1115 12/08/24 1115 Counseling Services Smoking & Tobacco Cessation: N/A Advance Care Planning Advanced Care planning: N/A Problem\Assessment\Plan Additional Plan Additional Plan Acute respiratory failure: Patient now intubated on mechanical ventilation sedated with a combination of propofol and fentanyl at 50 mcg/kg per minute and 350 mcg an hour respectively. Nimbex drip. Hold metoprolol overnight Acute asthma exacerbation: Cont solumedrol, nebulizer History of asthma: She also has been on biologics, namely Tezepelumab. She has a background history of mechanical ventilation with tracheostomy. She was also on Symbicort and cromolyn. Altered level of consciousness: EEG and CAT scan of the head ordered. Neurology consultation with a scott vila also ordered. CHF: On ivabradine, a medication used for patients with a history of CHF. Mild hyponatremia Mild anemia of chronic disease Plan: Continue mechanical ventilation with sedation and neuromuscular paralysis for now. Continue bronchodilator therapy and IV steroids. Hold metoprolol overnight Neurology consult done - follow recs in am and CAT scan of the head and EEG results. Vent bundle Code status: Full code Sedation/analgesia: Fentanyl and propofol drips Neuromuscular paralysis: Nimbex drip Prophylaxis: Protonix and subcu heparin Overall prognosis: Guarded Critical care time: 35 minutes. EMILE PHILIPPE MD Dec 08, 2024 20:35
--- NOTE | 2024-12-08 20:51 | PROGRESS NOTE ---
Daily Progress Note Providers to CC ~ Antibiotic Timeout Antibiotic Ordered?: Yes Subjective I was paged by the patient's DIRECTOR OF INSTITUTIONAL RESEARCH Yandy this morning and has a time the patient was in respiratory distress however oxygen saturation was stable shortly after a rapid response was called a quickly ran upstairs evaluate the patient and the patient was obtunded the time was breathing a rate of high 20s to low 30s ordered an ABG and a chest x-ray the patient decompensated quickly and the intensive care evaluated the patient and the patient was transferred to the ICU intubated Telemedicine neurology evaluated the patient and the patient is in the midst of a seizure workup Objective Vital Signs Date Time Temp Pulse Resp B/P (MAP) Pulse Ox O2 Delivery O2 Flow Rate FiO2 12/08/24 20:00 69 12/08/24 20:00 12 106/72 (83) 97 Mechanical Ventilator 12/08/24 19:43 21 12/08/24 18:00 98.6 12/08/24 12:09 Result Diagram: 12/08/24 1115 12/08/24 1115 Gen. Moderate respiratory distress, obtunded Lungs inspiratory and expiratory wheezes appreciated bilaterally Heart normal sinus rhythm no murmurs rubs or clicks noted Abdomen soft nontender bowel sounds are normoactive Lower extremities no clubbing cyanosis, nor edema appreciated bilaterally Problem\Assessment\Plan Problems/Diagnosis: (1) Asthma exacerbation # Acute asthma exacerbation # vocal cord dysfunction syndrome # Acute hypoxic respiratory failure with respiratory distress # Community-acquired pneumonia- POA # Lactic acidosis 2/2 severe hypoxemia The patient was intubated and transferred to the ICU on the morning of 12/08/2024 On IV Rocephin and IV azithromycin On IV Solu-Medrol Albuterol PRN nebs both standard neb and continuous neb is available Scheduled DuoNeb # encephalopathy Telemedicine neurology Dr. Servin recommended a seizure workup EEG demonstrates general encephalopathy MRI of the head is recommended # the patient takes Ivabradine 1. Possibly CHF however echocardiogram demonstrates a normal EF and no other concerning findings on the echocardiogram 2. Uncontrolled sinus tachycardia- a possibility 3. Angina- unlikely We will have to discuss the use of this medication with the patient when she is alert and a no longer sedated on a ventilator # hypokalemia Potassium replacement protocol DVT/VTE prophylaxis: heparin Code status: Full code I spent a total of 35 minutes discussing Advanced Care Planning measures with the patient. Advance care planning: Discussed with patient the importance of advance care planning in case of emergent situation. We discussed various resuscitative measures/ ACP with the patient at the time of admission. Patient voiced understanding and patient has decided on a full code status. I spent 35 minutes on critical care time with the patient on 12/08/2024. Date of Service: Dec 08, 2024 Billing Provider: ROMI TUTTLE DO Common Visit Codes: 06091-[id number] CARE 30-74 MIN Problem Qualifiers (1) Asthma exacerbation: Qualified Codes: J45.901 - Unspecified asthma with (acute) exacerbation ORMI TUTTLE DO Dec 08, 2024 20:51
[2024-12-09] VITALS (45 sets, daily range): BP systolic 96–138; BP diastolic 52–90; PULSE 62–104; RESP 11–45; O2SAT 90–100
[2024-12-09 02:21] LABS: BASOPHILS % (AUTO) 0.2 % (0-1); HEMATOCRIT 34.1 % (35.0-45.0); LYMPHOCYTES # (AUTO) 0.3 X10'3 (1.1-4.8); MONOCYTES # (AUTO) 0.3 X10'3 (0-0.9); WHITE BLOOD COUNT 6.9 X10'3 (4.5-11.0)
[2024-12-09 02:22] LABS: EOSINOPHILS % (AUTO) 0.1 % (0-6); HEMOGLOBIN 11.1 g/dl (12.0-16.0); LYMPHOCYTES % (AUTO) 4.1 % (21-51); MEAN CORPUSCULAR HEMOGLOBIN 27.8 PG (27.0-31.0); MEAN CORPUSCULAR HGB CONC 32.4 g/dL (33.0-36.5); MEAN CORPUSCULAR VOLUME 85.7 FL (78-98); MEAN PLATELET VOLUME 7.6 FL (7.4-10.4); MONOCYTES % (AUTO) 4.6 % (2-12); NEUTROPHILS # (AUTO) 6.3 X10'3 (1.8-7.7); PLATELET COUNT 223 X10'3 (140-440); RED BLOOD COUNT 3.98 X10'6 (4.20-5.60); RED CELL DISTRIBUTION WIDTH 14.6 % (11.5-14.5)
[2024-12-09 02:45] LABS: ALANINE AMINOTRANSFERASE 16 U/L (12-78); ALBUMIN 3.2 G/DL (3.4-5.0); ALBUMIN/GLOBULIN RATIO 1.3 (1.1-1.5); ALKALINE PHOSPHATASE 39 IU/L (46-116); ANION GAP 6 (8-16); ASPARTATE AMINO TRANSFERASE 13 U/L (10-37); BILIRUBIN,TOTAL 0.3 MG/DL (0.1-1.0); BLOOD UREA NITROGEN 12 MG/DL (7-18); BUN/CREATININE RATIO 21.1 (10.0-20.0); CALCIUM 8.4 MG/DL (8.5-10.1); CHLORIDE 107 MMOL/L (99-107); CREATININE 0.57 MG/DL (0.40-0.90); GLUCOSE 139 MG/DL (70-104); MAGNESIUM 2.3 MG/DL (1.5-2.4); POTASSIUM 3.8 MMOL/L (3.5-5.1); SODIUM 141 MMOL/L (135-145); TOTAL CARBON DIOXIDE 28.1 MMOL/L (24-32); TOTAL PROTEIN 5.7 G/DL (6.4-8.2); TRIGLYCERIDES 121 MG/DL (20-135); eCRCL 148 ML/MIN; eGFR > 90 ML/MIN
[2024-12-09 03:48] LABS: ABG BASE EXCESS 0.3 mmol/L (-2.0-3.0); ABG HCO3 25.2 mmol/L (21.0-28.0); ABG OXYGEN SATURATION 96.8 % (94.0-98.0); ABG PCO2 (T) 40.4 mmHg (32.0-45.0); ABG PH (T) 7.409 (7.350-7.450); ABG PO2 (T) 89.6 mmHg (83.0-108.0); ALLEN'S TEST Modified; FCOHb 0.1 % (0.5-1.5); FHHb 3.2 % (0.0-5.0); FMetHb 0.1 % (0.0-1.5); FO2Hb 96.6 % (94.0-98.0); MODE PRVC; PATIENT TEMPERATURE 36.3; PEEP 5 cm H2O; RESPIRATORY RATE 12 b/min; TIDAL VOLUME 350 mL; TOTAL HEMOGLOBIN 11.5 G/dl (12.0-16.0)
--- NOTE | 2024-12-09 06:47 | RADIOLOGY REPORT ---
EXAM: XR Chest, 1 View CLINICAL INDICATION: ET Tube PLacement TECHNIQUE: Frontal view of the chest. COMPARISON: DI CHEST,SINGLE VIEW on DOS: 12/08/24, DI CHEST,SINGLE VIEW on DOS: 12/08/24, DI CHEST,SING LE VIEW on DOS: 12/06/24, DI CHEST,SINGLE VIEW on DOS: 08/20/24, DI CHEST,SINGLE VIEW on DOS: 01/08/24 FINDINGS: LUNGS AND PLEURAL SPACES: Unremarkable. No consolidation. No pneumothorax. HEART: Unremarkable. No cardiomegaly. MEDIASTINUM: Unremarkable. Normal mediastinal contour. BONES/JOINTS: Unremarkable. No acute fracture. TUBES, LINES AND DEVICES: The endotracheal tube (ETT) is in satisfactory position. Enteric tube ti p cannot be seen but is below the diaphragm. OTHER FINDINGS: . . IMPRESSION: No acute cardiopulmonary process.
[2024-12-09] MEDS: COMMUNICATION ORDER 1 EA MISC MC ONE (08:55)
[2024-12-09] MEDS: quetiapine 100mg tablet PO ONE ×2 (09:20→15:13)
--- NOTE | 2024-12-09 11:12 | PROGRESS NOTE ---
Subjective Subjective Patient is seen today. Remains intubated, sedated with a combination of propofol and fentanyl and paralyzed with Nimbex. Reason for visit: Pulmonary critical care follow-up Reviewed: Care Plan, H&P, Labs, Radiology Review of Systems Changes from previous H/P or p: No Changes Daily Progress Note Exam Vitals Vital Signs Date Time Temp Pulse Resp B/P (MAP) Pulse Ox O2 Delivery O2 Flow Rate FiO2 12/09/24 10:19 74 12 95 Ventilator+ 21 12/09/24 10:00 98.2 106/73 (84) 12/08/24 12:09 Result Diagram: 12/09/24 0203 12/09/24 0203 Exam General: In respiratory distress prior to intubation HEENT: N/C/AT, PERRLA, EOMI Neck: Supple, with no jugular venous distention and no lymphadenopathy. Chest: Symmetric expansion bilaterally. Cardiovascular: Normal S1 and S2 without any S3-S4 gallop. Abdomen: Soft nontender Extremities: No cyanosis, no clubbing and edema. Central Nervous System: Sedated and paralyzed VTE VTE Risk Score VTE Risk Score Reference Ranges: Score 0-1 = Low Risk (Aggressive mobilization; early ambulation; no VTE prophylaxis required) Score 2: Moderate Risk (Intermittent/Pneumatic Compression Device OR Lovenox/Heparin/Coumadin) Score 3-4: High Risk (Intermittent/Pneumatic Compression Device AND Lovenox/Heparin/Coumadin) Score > or = 5: Highest Risk (Intermittent/Pneumatic Compression Device AND Lovenox/Heparin/Coumadin) Assessment/Plan Plan Acute respiratory failure: Patient now intubated on mechanical ventilation sedated with a combination of propofol and fentanyl at 50 mcg/kg per minute and 350 mcg an hour respectively. Paralyzed with nimbex. Acute asthma exacerbation: Patient did not have any breath sounds prior to intubation but had clear breath sounds after intubation and did not seem to have any bronchospasm on mechanical ventilation i.e. peak air pressures were only 12. This raises the question whether the patient has VCD i.e. vocal cord dysfunction syndrome. History of asthma: She also has been on biologics, namely Tezepelumab. She has a background history of mechanical ventilation with tracheostomy. She was also on Symbicort and cromolyn. Altered level of consciousness:Sedated CHF: On ivabradine, a medication used for patients with a history of CHF. Mild hyponatremia Mild anemia of chronic disease Plan: Continue mechanical ventilation and stop neuromuscular paralysis and switch sedation to precedex. Continue bronchodilator therapy and IV steroids. Follow CAT scan of the head and EEG results. Vent bundle Code status: Full code Sedation/analgesia: Fentanyl and propofol drips Neuromuscular paralysis: Stop nimbex Prophylaxis: Protonix and subcu heparin Overall prognosis: Guarded Critical care time: 35 minutes. Expected Outcome/Goals Expected Outcomes/Goals: Tolerance to TF, wt maintenance, bowel regularity, skin integrity ZORAN PALMER MD Dec 09, 2024 11:12
[2024-12-09] MEDS: dexmedetomidin/NS 400mcg/100ml 100 ML IV SCH (11:15)
[2024-12-09] MEDS: mineral oil/petrolatum ophthal oint EACHEYE SCH (14:00)
[2024-12-09] MEDS ORDERED: CISatracurium besylate inj. 100 MG in normal saline 100ml IV soln 90 ML IV PRN (14:35)
[2024-12-09] MEDS: propofol 1000mg/100ml bottle 100 ML IV SCH (14:57)
[2024-12-09] MEDS: FENTANYL-0.9 % NACL/PF 100 ML IV SCH (17:45)
--- NOTE | 2024-12-09 20:19 | PROGRESS NOTE ---
Daily Progress Note Providers to CC ~ Antibiotic Timeout Antibiotic Ordered?: Yes Subjective Patient remains sedated and intubated on a ventilator- no changes today other than changes in sedation made by Dr. Harris Objective Vital Signs Date Time Temp Pulse Resp B/P (MAP) Pulse Ox O2 Delivery O2 Flow Rate FiO2 12/09/24 19:55 101/63 12/09/24 19:41 78 12 Mechanical Ventilator 30 12/09/24 19:36 96 12/09/24 18:00 96.1 12/08/24 12:09 Result Diagram: 12/09/24 0203 12/09/24 0203 Gen. Sedated intubated on a ventilator Lungs inspiratory and expiratory wheezes appreciated bilaterally Heart normal sinus rhythm no murmurs rubs or clicks noted Abdomen soft nontender bowel sounds are normoactive Lower extremities no clubbing cyanosis, nor edema appreciated bilaterally Problem\Assessment\Plan Problems/Diagnosis: (1) Asthma exacerbation # Acute asthma exacerbation # vocal cord dysfunction syndrome # Acute hypoxic respiratory failure with respiratory distress # Community-acquired pneumonia- POA # Lactic acidosis 2/2 severe hypoxemia The patient was intubated and transferred to the ICU on the morning of 12/08/2024 On IV Rocephin and IV azithromycin On IV Solu-Medrol Albuterol PRN nebs both standard neb and continuous neb is available Scheduled DuoNeb 12/09 the patient is on fentanyl, propofol, Nimbex # encephalopathy Telemedicine neurology Dr. Servin recommended a seizure workup EEG demonstrates general encephalopathy MRI of the head is recommended # the patient takes Ivabradine 1. Possibly CHF however echocardiogram demonstrates a normal EF and no other concerning findings on the echocardiogram 2. Uncontrolled sinus tachycardia- a possibility 3. Angina- unlikely We will have to discuss the use of this medication with the patient when she is alert and a no longer sedated on a ventilator # hypokalemia Potassium replacement protocol DVT/VTE prophylaxis: heparin Code status: Full code I spent a total of 35 minutes discussing Advanced Care Planning measures with the patient. Advance care planning: Discussed with patient the importance of advance care planning in case of emergent situation. We discussed various resuscitative measures/ ACP with the patient at the time of admission. Patient voiced understanding and patient has decided on a full code status. I spent 35 minutes on critical care time with the patient on 12/08/2024. Date of Service: Dec 09, 2024 Billing Provider: ROMI TUTTLE DO Common Visit Codes: [id number] INP/OBS CARE(HIGH) Problem Qualifiers (1) Asthma exacerbation: Qualified Codes: J45.901 - Unspecified asthma with (acute) exacerbation ROMI TUTTLE DO Dec 09, 2024 20:19
--- NOTE | 2024-12-09 23:54 | PROGRESS NOTE ---
Progress Note Dictate Providers to CC ~ Antibiotic Ordered?: Yes Objective Vitals Vital Signs Date Time Temp Pulse Resp B/P (MAP) Pulse Ox O2 Delivery O2 Flow Rate FiO2 12/09/24 23:31 75 12 Mechanical Ventilator 30 12/09/24 23:26 100 12/09/24 19:55 101/63 12/09/24 18:00 96.1 12/08/24 12:09 Lab Results: 12/09/24 0203 12/09/24 0203 Problem\Assessment\Plan Additional Plan Night time TeleICU coverage Patient seen and evaluated using HIPPA complaint AV devise Admitted for respiratory failure Asthma exacerbation with focal cord dysfunction Multiple incubations, some underlying psychiatric issues Intubated and paralysed Continue mechanical ventilation Wean off paralytic as tolerated Steriod Bronchodialators D/W RN CCT 60mins MD JACK Reich,SIL Watt MD Dec 09, 2024 23:54
[2024-12-10] VITALS (48 sets, daily range): BP systolic 108–153; BP diastolic 66–99; PULSE 68–102; RESP 12–38; O2SAT 95–100
[2024-12-10 02:28] LABS: BASOPHILS % (AUTO) 0.1 % (0-1); EOSINOPHILS % (AUTO) 0 % (0-6); HEMATOCRIT 34.7 % (35.0-45.0); HEMOGLOBIN 11.3 g/dl (12.0-16.0); LYMPHOCYTES # (AUTO) 0.4 X10'3 (1.1-4.8); LYMPHOCYTES % (AUTO) 4.4 % (21-51); MEAN CORPUSCULAR HEMOGLOBIN 28.1 PG (27.0-31.0); MEAN CORPUSCULAR HGB CONC 32.5 g/dL (33.0-36.5); MEAN CORPUSCULAR VOLUME 86.5 FL (78-98); MEAN PLATELET VOLUME 7.4 FL (7.4-10.4); MONOCYTES # (AUTO) 0.6 X10'3 (0-0.9); MONOCYTES % (AUTO) 6.1 % (2-12); NEUTROPHILS # (AUTO) 9.1 X10'3 (1.8-7.7); NEUTROPHILS % (AUTO) 89.4 % (42-75); PLATELET COUNT 207 X10'3 (140-440); RED BLOOD COUNT 4.01 X10'6 (4.20-5.60); RED CELL DISTRIBUTION WIDTH 14.4 % (11.5-14.5); WHITE BLOOD COUNT 10.2 X10'3 (4.5-11.0)
[2024-12-10 02:33] LABS: ALANINE AMINOTRANSFERASE 18 U/L (12-78); ALBUMIN 2.9 G/DL (3.4-5.0); ALBUMIN/GLOBULIN RATIO 1.2 (1.1-1.5); ALKALINE PHOSPHATASE 38 IU/L (46-116); ANION GAP 7 (8-16); ASPARTATE AMINO TRANSFERASE 12 U/L (10-37); BILIRUBIN,TOTAL 0.2 MG/DL (0.1-1.0); BLOOD UREA NITROGEN 15 MG/DL (7-18); BUN/CREATININE RATIO 32.6 (10.0-20.0); CALCIUM 8.1 MG/DL (8.5-10.1); CHLORIDE 110 MMOL/L (99-107); CREATININE 0.46 MG/DL (0.40-0.90); GLUCOSE 134 MG/DL (70-104); MAGNESIUM 2.5 MG/DL (1.5-2.4); PHOSPHORUS 4.6 MG/DL (2.3-4.5); POTASSIUM 3.6 MMOL/L (3.5-5.1); PREALBUMIN 35.1 MG/DL (19-36); SODIUM 146 MMOL/L (135-145); TOTAL CARBON DIOXIDE 28.6 MMOL/L (24-32); TOTAL PROTEIN 5.4 G/DL (6.4-8.2); eCRCL 183 ML/MIN; eGFR > 90 ML/MIN
[2024-12-10 03:23] LABS: ABG BASE EXCESS 2.8 mmol/L (-2.0-3.0); ABG OXYGEN SATURATION 97.9 % (94.0-98.0); ABG PCO2 (T) 45.6 mmHg (32.0-45.0); ABG PH (T) 7.406 (7.350-7.450); ABG PO2 (T) 105.9 mmHg (83.0-108.0); ALLEN'S TEST POSITIVE; FCOHb 0.3 % (0.5-1.5); FHHb 2.1 % (0.0-5.0); FMetHb 0.3 % (0.0-1.5); FO2Hb 97.3 % (94.0-98.0); MODE VENT - AC; PATIENT TEMPERATURE 36.8; PEEP 5 cm H2O; RESPIRATORY RATE 12 b/min; TIDAL VOLUME 350 mL; TOTAL HEMOGLOBIN 11.4 G/dl (12.0-16.0)
--- NOTE | 2024-12-10 06:39 | RADIOLOGY REPORT ---
CHEST RADIOGRAPH Indication: Intubated Technique: Single frontal view of the chest was obtained Comparison: Chest radiograph dated 12/09/2024. FINDINGS: Lines and Tubes: The endotracheal tube terminates 3.2 cm above the delta. The enteric tube courses b elow the left hemidiaphragm and the tip extends outside the field of view. Lungs: No focal consolidation. Pleura: No effusion. No pneumothorax. Cardiomediastinal contours: Unremarkable Bones: No acute osseous abnormality. IMPRESSION: 1. Stable position of the support lines and tubes. 2. No acute cardiopulmonary disease.
[2024-12-10] MEDS ORDERED: clonazePAM 1mg tablet PO SCH (10:11)
[2024-12-10] MEDS: quetiapine 100mg tablet PO SCH (10:23)
[2024-12-10] MEDS: quetiapine 100mg tablet OGT SCH (10:26)
[2024-12-10] MEDS: venlafaxine 37.5mg tablet OGT SCH (11:28)
[2024-12-10] MEDS: topiramate 25mg tablet OGT SCH (11:37)
[2024-12-10] MEDS: clonazePAM 1mg tablet OGT SCH (11:38)
[2024-12-10] MEDS: heparin, porcine 5000 units/ml vial SQ SCH (12:10)
--- NOTE | 2024-12-10 12:12 | PROGRESS NOTE ---
Subjective Subjective Patient is seen today. Remains intubated, sedated with a combination of propofol and fentanyl . Cessation of neuromuscular paralysis led to tachypnea just like yesterday. Reason for visit: Pulmonary critical care follow-up Reviewed: Care Plan, H&P, Labs, Radiology Daily Progress Note Exam Vitals Vital Signs Date Time Temp Pulse Resp B/P (MAP) Pulse Ox O2 Delivery O2 Flow Rate FiO2 12/10/24 11:57 97 12 Mechanical Ventilator 25 12/10/24 11:50 96 12/10/24 11:00 97.7 114/71 (85) 12/08/24 12:09 Result Diagram: 12/10/24 0146 12/10/24 0146 Exam General: In respiratory distress prior to intubation HEENT: N/C/AT, PERRLA, EOMI Neck: Supple, with no jugular venous distention and no lymphadenopathy. Chest: Symmetric expansion bilaterally. Cardiovascular: Normal S1 and S2 without any S3-S4 gallop. Abdomen: Soft nontender Extremities: No cyanosis, no clubbing and edema. Central Nervous System: Sedated and paralyzed VTE VTE Risk Score VTE Risk Score Reference Ranges: Score 0-1 = Low Risk (Aggressive mobilization; early ambulation; no VTE prophylaxis required) Score 2: Moderate Risk (Intermittent/Pneumatic Compression Device OR Lovenox/Heparin/Coumadin) Score 3-4: High Risk (Intermittent/Pneumatic Compression Device AND Lovenox/Heparin/Coumadin) Score > or = 5: Highest Risk (Intermittent/Pneumatic Compression Device AND Lovenox/Heparin/Coumadin) Assessment/Plan Plan Acute respiratory failure: Patient now intubated on mechanical ventilation sedated with a combination of propofol and fentanyl at 50 mcg/kg per minute and 350 mcg an hour respectively. Neuromuscular paralysis resumed. Acute asthma exacerbation: Patient did not have any breath sounds prior to intubation but had clear breath sounds after intubation and did not seem to have any bronchospasm on mechanical ventilation i.e. peak air pressures were only 12. This raises the question whether the patient has VCD i.e. vocal cord dysfunction syndrome. History of asthma: She also has been on biologics, namely Tezepelumab. She has a background history of mechanical ventilation with tracheostomy. She was also on Symbicort and cromolyn. Altered level of consciousness:Sedated CHF: On ivabradine, a medication used for patients with a history of CHF. Mild hyponatremia Mild anemia of chronic disease Background history of mental issues per adopted mother: Patient was on psychotropic drugs that was stopped late May 2024. Added Seroquel 300 mg per tube q.6 hours, topiramate 25 mg per tube q.day, Effexor 75 mg per tube q.day, gabapentin 100 mg q.8 hours and clonazepam 1 mg per tube b.i.d.. Plan: Continue mechanical ventilation and stop neuromuscular paralysis and switch sedation to precedex. Continue bronchodilator therapy and IV steroids. CT scan results and EEG unremarkable. Vent bundle Code status: Full code Sedation/analgesia: Fentanyl and propofol drips Neuromuscular paralysis: Stop nimbex Prophylaxis: Protonix and subcu heparin Overall prognosis: Guarded Critical care time: 35 minutes. Expected Outcome/Goals Expected Outcomes/Goals: Tolerance to TF, wt maintenance, bowel regularity, skin integrity ZORAN PALMER MD Dec 10, 2024 12:12
[2024-12-10] MEDS: GABAPENTIN 300 MG/6 ML oral SOLUTION cup OGT SCH (13:25)
[2024-12-10] MEDS: CISatracurium besylate inj. 100 MG in normal saline 100ml IV soln 90 ML IV PRN (13:37)
[2024-12-10] MEDS ORDERED: quetiapine 100mg tablet PO SCH (14:00)
[2024-12-10] MEDS ORDERED: clonazePAM 1mg tablet OGT SCH (20:00)
[2024-12-10] MEDS: metoprolol tartrate 25mg tablet OGT SCH (21:40)
--- NOTE | 2024-12-10 22:20 | PROGRESS NOTE ---
Daily Progress Note Providers to CC ~ Antibiotic Timeout Antibiotic Ordered?: No Subjective The patient gets very agitated and hyperkinetic when sedation is turned down patient was started on Topamax today Seroquel and Effexor Objective Vital Signs Date Time Temp Pulse Resp B/P (MAP) Pulse Ox O2 Delivery O2 Flow Rate FiO2 12/10/24 21:40 81 12/10/24 21:28 19 99 25 12/10/24 20:06 150/91 12/10/24 19:25 Mechanical Ventilator 12/10/24 17:54 97.7 12/08/24 12:09 Result Diagram: 12/10/24 0146 12/10/24 0146 Gen. Sedated intubated on a ventilator Lungs inspiratory and expiratory wheezes appreciated bilaterally Heart normal sinus rhythm no murmurs rubs or clicks noted Abdomen soft nontender bowel sounds are normoactive Lower extremities no clubbing cyanosis, nor edema appreciated bilaterally Problem\Assessment\Plan Problems/Diagnosis: (1) Asthma exacerbation # Acute asthma exacerbation # vocal cord dysfunction syndrome # Acute hypoxic respiratory failure with respiratory distress # Community-acquired pneumonia- POA # Lactic acidosis 2/2 severe hypoxemia The patient was intubated and transferred to the ICU on the morning of 12/08/2024 On IV Rocephin and IV azithromycin On IV Solu-Medrol Albuterol PRN nebs both standard neb and continuous neb is available Scheduled DuoNeb 12/09 the patient is on fentanyl, propofol, Nimbex 12/10 attempts to turned down sedation and extubate the patient was unsuccessful today and Effexor was started as well as topiramate and gabapentin # encephalopathy Telemedicine neurology Dr. Servin recommended a seizure workup EEG demonstrates general encephalopathy MRI of the head is recommended # the patient takes Ivabradine 1. Possibly CHF however echocardiogram demonstrates a normal EF and no other concerning findings on the echocardiogram 2. Uncontrolled sinus tachycardia- a possibility 3. Angina- unlikely We will have to discuss the use of this medication with the patient when she is alert and a no longer sedated on a ventilator # hypokalemia Potassium replacement protocol DVT/VTE prophylaxis: heparin Code status: Full code I spent 35 minutes on critical care time with the patient on 12/08/2024. Date of Service: Dec 10, 2024 Billing Provider: ROMI TUTTLE DO Common Visit Codes: [id number] INP/OBS CARE(HIGH) Problem Qualifiers (1) Asthma exacerbation: Qualified Codes: J45.901 - Unspecified asthma with (acute) exacerbation ROMI TUTTLE DO Dec 10, 2024 22:20
[2024-12-11] VITALS (48 sets, daily range): BP systolic 85–135; BP diastolic 46–91; PULSE 67–118; RESP 4–36; O2SAT 93–100
[2024-12-11] MEDS: FENTANYL-0.9 % NACL/PF 100 ML IV SCH ×2 (02:59→19:12)
[2024-12-11 03:11] LABS: ABG BASE EXCESS 1.2 mmol/L (-2.0-3.0); ABG HCO3 24.5 mmol/L (21.0-28.0); ABG OXYGEN SATURATION 98.2 % (94.0-98.0); ABG PH (T) 7.485 (7.350-7.450); ABG PO2 (T) 109.5 mmHg (83.0-108.0); ALLEN'S TEST POSITIVE; FCOHb 0.3 % (0.5-1.5); FHHb 1.8 % (0.0-5.0); FMetHb 0.3 % (0.0-1.5); FO2Hb 97.6 % (94.0-98.0); MODE VENT - AC; PATIENT TEMPERATURE 36.2; PEEP 5 cm H2O; RESPIRATORY RATE 12 b/min; TIDAL VOLUME 350 mL
[2024-12-11] MEDS: propofol 1000mg/100ml bottle 100 ML IV SCH ×2 (03:48→19:11)
[2024-12-11 05:18] LABS: BASOPHILS % (AUTO) 0.2 % (0-1); EOSINOPHILS % (AUTO) 0.4 % (0-6); HEMATOCRIT 32.8 % (35.0-45.0); HEMOGLOBIN 10.9 g/dl (12.0-16.0); LYMPHOCYTES # (AUTO) 1.7 X10'3 (1.1-4.8); LYMPHOCYTES % (AUTO) 21.1 % (21-51); MEAN CORPUSCULAR HGB CONC 33.1 g/dL (33.0-36.5); MEAN CORPUSCULAR VOLUME 84.6 FL (78-98); MEAN PLATELET VOLUME 7.6 FL (7.4-10.4); MONOCYTES # (AUTO) 0.7 X10'3 (0-0.9); MONOCYTES % (AUTO) 8.7 % (2-12); NEUTROPHILS # (AUTO) 5.6 X10'3 (1.8-7.7); NEUTROPHILS % (AUTO) 69.6 % (42-75); PLATELET COUNT 169 X10'3 (140-440); RED BLOOD COUNT 3.88 X10'6 (4.20-5.60); RED CELL DISTRIBUTION WIDTH 14.5 % (11.5-14.5); WHITE BLOOD COUNT 8.1 X10'3 (4.5-11.0)
[2024-12-11 05:20] LABS: ALANINE AMINOTRANSFERASE 15 U/L (12-78); ALBUMIN 2.7 G/DL (3.4-5.0); ALBUMIN/GLOBULIN RATIO 1.2 (1.1-1.5); ALKALINE PHOSPHATASE 34 IU/L (46-116); ANION GAP 5 (8-16); ASPARTATE AMINO TRANSFERASE 15 U/L (10-37); BILIRUBIN,TOTAL 0.2 MG/DL (0.1-1.0); BLOOD UREA NITROGEN 15 MG/DL (7-18); BUN/CREATININE RATIO 41.7 (10.0-20.0); CALCIUM 7.7 MG/DL (8.5-10.1); CHLORIDE 110 MMOL/L (99-107); CREATININE 0.36 MG/DL (0.40-0.90); GLUCOSE 98 MG/DL (70-104); PHOSPHORUS 3.4 MG/DL (2.3-4.5); POTASSIUM 3.4 MMOL/L (3.5-5.1); SODIUM 145 MMOL/L (135-145); eCRCL 234 ML/MIN; eGFR > 90 ML/MIN
--- NOTE | 2024-12-11 06:08 | RADIOLOGY REPORT ---
CHEST RADIOGRAPH Indication: Intubated Technique: Single frontal view of the chest was obtained Comparison: DI CHEST,SINGLE VIEW on DOS: 12/10/24 FINDINGS: Lines and Tubes: Endotracheal tube terminates 5.9 cm above the delta. The enteric tube courses below the left hemidiaphragm and the tip extends outside the field of view. Lungs: No focal consolidation. Pleura: No effusion. No pneumothorax. Cardiomediastinal contours: Unremarkable Bones: No acute osseous abnormality. IMPRESSION: 1. Stable position of the support lines and tubes. 2. No acute cardiopulmonary disease.
[2024-12-11] MEDS: potassium Cl 40MEQ/1/2NS 520ml 520 ML IV PRN (06:52)
[2024-12-11] MEDS: fentaNYL 2,500 MCG in Normal Saline 250ml IV soln bag IV SCH (09:13)
[2024-12-11] MEDS: pantoprazole 40 MG vial IV SCH (13:13)
--- NOTE | 2024-12-11 13:16 | PROGRESS NOTE ---
Subjective Subjective Patient is seen today. Extubated today. Patient will sedated on several psychotropic drugs to include topiramate, clonazepam, gabapentin, effexor and seroquel. Reason for visit: Pulmonary critical care follow-up Reviewed: Care Plan, H&P, Labs, Radiology Daily Progress Note Exam Vitals Vital Signs Date Time Temp Pulse Resp B/P (MAP) Pulse Ox O2 Delivery O2 Flow Rate FiO2 12/11/24 13:00 8 98/59 (72) 95 Nasal Cannula 2.0 12/11/24 12:13 118 12/11/24 12:00 21 12/11/24 10:00 97.2 Result Diagram: 12/11/24 0435 12/11/24 0435 Exam General: In respiratory distress prior to intubation HEENT: N/C/AT, PERRLA, EOMI Neck: Supple, with no jugular venous distention and no lymphadenopathy. Chest: Symmetric expansion bilaterally. Cardiovascular: Normal S1 and S2 without any S3-S4 gallop. Abdomen: Soft nontender Extremities: No cyanosis, no clubbing and edema. VTE VTE Risk Score VTE Risk Score Reference Ranges: Score 0-1 = Low Risk (Aggressive mobilization; early ambulation; no VTE prophylaxis required) Score 2: Moderate Risk (Intermittent/Pneumatic Compression Device OR Lovenox/Heparin/Coumadin) Score 3-4: High Risk (Intermittent/Pneumatic Compression Device AND Lovenox/Heparin/Coumadin) Score > or = 5: Highest Risk (Intermittent/Pneumatic Compression Device AND Lovenox/Heparin/Coumadin) Assessment/Plan Plan Acute respiratory failure: Patient now intubated on mechanical ventilation sedated with a combination of propofol and fentanyl at 50 mcg/kg per minute and 350 mcg an hour respectively. Neuromuscular paralysis resumed. Acute asthma exacerbation: Patient did not have any breath sounds prior to intubation but had clear breath sounds after intubation and did not seem to have any bronchospasm on mechanical ventilation i.e. peak air pressures were only 12. This raises the question whether the patient has VCD i.e. vocal cord dysfunction syndrome. History of asthma: She also has been on biologics, namely Tezepelumab. She has a background history of mechanical ventilation with tracheostomy. She was also on Symbicort and cromolyn. Altered level of consciousness:Sedated CHF: On ivabradine, a medication used for patients with a history of CHF. Mild hyponatremia Mild anemia of chronic disease Background history of mental issues per adopted mother: Patient was on psychotropic drugs that was stopped late May 2024. Added Seroquel 300 mg per tube q.6 hours, topiramate 25 mg per tube q.day, Effexor 37.5 mg per tube q.day, gabapentin 100 mg q.8 hours and clonazepam 1 mg per tube b.i.d.. Plan: Continue mechanical ventilation and stop neuromuscular paralysis and switch sedation to precedex. Continue bronchodilator therapy and IV steroids. CT scan results and EEG unremarkable. Vent bundle Code status: Full code Sedation/analgesia: Fentanyl and propofol drips Neuromuscular paralysis: Stop nimbex Prophylaxis: Protonix and subcu heparin Overall prognosis: Guarded Critical care time: 35 minutes. Expected Outcome/Goals Expected Outcomes/Goals: Tolerance to TF, wt maintenance, bowel regularity, skin integrity ZORAN PALMER MD Dec 11, 2024 13:16
[2024-12-11 15:42] LABS: ABG BASE EXCESS 0.7 mmol/L (-2.0-3.0); ABG HCO3 31.9 mmol/L (21.0-28.0); ABG OXYGEN SATURATION 96.5 % (94.0-98.0); ABG PCO2 (T) 89.2 mmHg (32.0-45.0); ABG PH (T) 7.169 (7.350-7.450); ABG PO2 (T) 101.2 mmHg (83.0-108.0); ALLEN'S TEST POSITIVE; FCOHb 0.7 % (0.5-1.5); FHHb 3.5 % (0.0-5.0); FLOW 3 L/min; FMetHb 0.2 % (0.0-1.5); FO2Hb 95.6 % (94.0-98.0); MODE NC; PATIENT TEMPERATURE 36.6; TOTAL HEMOGLOBIN 13.2 G/dl (12.0-16.0)
[2024-12-11 17:01] LABS: MAGNESIUM 2.2 MG/DL (1.5-2.4)
[2024-12-11 17:02] LABS: PHOSPHORUS 5.4 MG/DL (2.3-4.5); POTASSIUM 4.6 MMOL/L (3.5-5.1)
[2024-12-11 17:30] LABS: ABG BASE EXCESS 2.2 mmol/L (-2.0-3.0); ABG HCO3 24.9 mmol/L (21.0-28.0); ABG OXYGEN SATURATION 98.9 % (94.0-98.0); ABG PCO2 (T) 32.7 mmHg (32.0-45.0); ABG PH (T) 7.499 (7.350-7.450); ABG PO2 (T) 120.8 mmHg (83.0-108.0); ALLEN'S TEST Modified; FCOHb 0.6 % (0.5-1.5); FHHb 1.1 % (0.0-5.0); FMetHb 0.3 % (0.0-1.5); MODE MASK - BIPAP; RESPIRATORY RATE 16 b/min; TOTAL HEMOGLOBIN 12.6 G/dl (12.0-16.0)
[2024-12-11] MEDS: etomidate 2mg/ml inj. IV ONE (19:08)
[2024-12-11] MEDS: rocuronium 10mg/ml inj IV ONE (19:08)
[2024-12-11] MEDS: midazolam 1 mg/ML 2ml injection ONE (19:10)
[2024-12-11] MEDS: fentaNYL/PF 50MCG/1 ML 2ML syringe ONE (19:10)
[2024-12-11] MEDS: fentaNYL/PF 50MCG/1 ML 2ML syringe IV ONE (19:13)
[2024-12-11] MEDS: midazolam 1 mg/ML 2ml injection IV ONE (19:13)
[2024-12-11] MEDS: propofol 1000mg/100ml bottle 100 ML IV ONE (19:13)
--- NOTE | 2024-12-11 19:50 | RADIOLOGY REPORT ---
CHEST RADIOGRAPH Indication: intubation,ett placement Technique: Single frontal view of the chest was obtained Comparison: 12/11/2024 FINDINGS: Endotracheal tube tip projects 4.2 cm above the delta. Nasogastric tube projects towards stomach. The cardiac silhouette is unremarkable. The lungs demonstrate no pulmonary airspace consolidation. Th e pulmonary vasculature is unremarkable. There is no pleural effusion.. There is no pneumothorax. IMPRESSION: 1. No pulmonary airspace consolidation. Support lines 2. And tubes as described.
--- NOTE | 2024-12-11 20:24 | PROGRESS NOTE ---
Daily Progress Note Providers to CC ~ Antibiotic Timeout Antibiotic Ordered?: No Subjective The patient was extubated earlier today however she had to be reintubated she went into respiratory distress. Objective Vital Signs Date Time Temp Pulse Resp B/P (MAP) Pulse Ox O2 Delivery O2 Flow Rate FiO2 12/11/24 20:10 91 18 97 Ventilator+ 30 12/11/24 20:00 97.3 100/71 (81) 12/11/24 15:00 3.0 Result Diagram: 12/11/24 0435 12/11/24 1641 Gen. Sedated intubated on a ventilator Lungs inspiratory and expiratory wheezes appreciated bilaterally Heart normal sinus rhythm no murmurs rubs or clicks noted Abdomen soft nontender bowel sounds are normoactive Lower extremities no clubbing cyanosis, nor edema appreciated bilaterally Problem\Assessment\Plan Problems/Diagnosis: (1) Asthma exacerbation # Acute asthma exacerbation # vocal cord dysfunction syndrome # Acute hypoxic respiratory failure with respiratory distress # Community-acquired pneumonia- POA # Lactic acidosis 2/2 severe hypoxemia The patient was intubated and transferred to the ICU on the morning of 12/08/2024 On IV Rocephin and IV azithromycin On IV Solu-Medrol Albuterol PRN nebs both standard neb and continuous neb is available Scheduled DuoNeb 12/09 the patient is on fentanyl, propofol, Nimbex 12/10 attempts to turned down sedation and extubate the patient was unsuccessful today and Effexor was started as well as topiramate and gabapentin 12/11 the patient was extubated and then reintubated this evening since the patient went into respiratory distress # encephalopathy Telemedicine neurology Dr. Servin recommended a seizure workup EEG demonstrates general encephalopathy MRI of the head is recommended # the patient takes Ivabradine 1. Possibly CHF however echocardiogram demonstrates a normal EF and no other concerning findings on the echocardiogram 2. Uncontrolled sinus tachycardia- a possibility 3. Angina- unlikely We will have to discuss the use of this medication with the patient when she is alert and a no longer sedated on a ventilator # hypokalemia Potassium replacement protocol DVT/VTE prophylaxis: heparin Code status: Full code I spent 35 minutes on critical care time with the patient on 12/08/2024. Date of Service: Dec 11, 2024 Billing Provider: ROMI TUTTLE DO Common Visit Codes: [id number] INP/OBS CARE(HIGH) Problem Qualifiers (1) Asthma exacerbation: Qualified Codes: J45.901 - Unspecified asthma with (acute) exacerbation ROMI TUTTLE DO Dec 11, 2024 20:24
[2024-12-11] MEDS: sennosides 8.6mg tablet PO SCH (22:24)
[2024-12-11] MEDS: methylPREDNISolone sod succ/PF 40mg inj. IV SCH (22:25)
[2024-12-12] VITALS (47 sets, daily range): BP systolic 86–117; BP diastolic 49–74; PULSE 70–107; RESP 11–26; O2SAT 89–100
[2024-12-12 03:02] LABS: BASOPHILS % (AUTO) 0 % (0-1); EOSINOPHILS % (AUTO) 0.2 % (0-6); HEMATOCRIT 35.6 % (35.0-45.0); HEMOGLOBIN 11.6 g/dl (12.0-16.0); LYMPHOCYTES # (AUTO) 0.7 X10'3 (1.1-4.8); LYMPHOCYTES % (AUTO) 6.5 % (21-51); MEAN CORPUSCULAR HEMOGLOBIN 27.9 PG (27.0-31.0); MEAN CORPUSCULAR HGB CONC 32.6 g/dL (33.0-36.5); MEAN CORPUSCULAR VOLUME 85.7 FL (78-98); MEAN PLATELET VOLUME 7.4 FL (7.4-10.4); MONOCYTES # (AUTO) 0.3 X10'3 (0-0.9); NEUTROPHILS # (AUTO) 9.6 X10'3 (1.8-7.7); NEUTROPHILS % (AUTO) 90.3 % (42-75); PLATELET COUNT 208 X10'3 (140-440); RED BLOOD COUNT 4.15 X10'6 (4.20-5.60); RED CELL DISTRIBUTION WIDTH 14.8 % (11.5-14.5); WHITE BLOOD COUNT 10.7 X10'3 (4.5-11.0)
[2024-12-12 03:18] LABS: ALANINE AMINOTRANSFERASE 19 U/L (12-78); ALKALINE PHOSPHATASE 46 IU/L (46-116); ANION GAP 7 (8-16); ASPARTATE AMINO TRANSFERASE 16 U/L (10-37); BILIRUBIN,TOTAL 0.3 MG/DL (0.1-1.0); BLOOD UREA NITROGEN 15 MG/DL (7-18); BUN/CREATININE RATIO 36.6 (10.0-20.0); CALCIUM 8.5 MG/DL (8.5-10.1); CHLORIDE 106 MMOL/L (99-107); CREATININE 0.41 MG/DL (0.40-0.90); GLUCOSE 129 MG/DL (70-104); MAGNESIUM 2.4 MG/DL (1.5-2.4); PHOSPHORUS 6.1 MG/DL (2.3-4.5); POTASSIUM 3.8 MMOL/L (3.5-5.1); SODIUM 144 MMOL/L (135-145); TOTAL PROTEIN 5.9 G/DL (6.4-8.2); TRIGLYCERIDES 157 MG/DL (20-135); eCRCL 206 ML/MIN; eGFR > 90 ML/MIN
[2024-12-12 03:28] LABS: ABG BASE EXCESS 3.5 mmol/L (-2.0-3.0); ABG HCO3 29.1 mmol/L (21.0-28.0); ABG OXYGEN SATURATION 98.5 % (94.0-98.0); ABG PCO2 (T) 46.7 mmHg (32.0-45.0); ABG PH (T) 7.408 (7.350-7.450); ABG PO2 (T) 122.1 mmHg (83.0-108.0); ALLEN'S TEST Modified; FCOHb 0.3 % (0.5-1.5); FHHb 1.5 % (0.0-5.0); FO2Hb 98.2 % (94.0-98.0); MODE ac/prvc; PATIENT TEMPERATURE 36.1; PEEP 5 cm H2O; RESPIRATORY RATE 12 b/min; TIDAL VOLUME 350 mL; TOTAL HEMOGLOBIN 11.9 G/dl (12.0-16.0)
--- NOTE | 2024-12-12 06:03 | RADIOLOGY REPORT ---
CHEST RADIOGRAPH Indication: daily intubated Technique: Single frontal view of the chest was obtained COMPARISON: DI CHEST,SINGLE VIEW on DOS: 12/11/24, DI CHEST,SINGLE VIEW on DOS: 12/11/24, DI CHEST,SINGLE VIEW on DOS: 12/10/24, DI CHEST,SINGLE VIEW on DOS: 12/09/24, DI CHEST,SINGLE VIEW on DOS: 12/08/24 FINDINGS: Lines and Tubes: Unchanged. Lungs: Clear. Minor left basilar atelectasis. Pleura: No effusion. No pneumothorax. Cardiomediastinal contours: Unremarkable Bones: Unremarkable IMPRESSION: 1. No acute disease. 2. Lines and tubes unchanged.
[2024-12-12] MEDS ORDERED: rocuronium 10mg/ml inj IV ONE (08:00)
[2024-12-12] MEDS: quetiapine 100mg tablet OGT SCH (11:00)
--- NOTE | 2024-12-12 11:00 | PROGRESS NOTE ---
Subjective Subjective Patient is seen today. Extubated 12/11/2024 and reintubated on the same day due to respiratory distress. Patient will sedated on several psychotropic drugs to include topiramate, clonazepam, gabapentin, effexor and seroquel. Reason for visit: Pulmonary critical care follow-up Reviewed: Care Plan, H&P, Labs, Radiology Review of Systems Changes from previous H/P or p: No Changes Daily Progress Note Exam Vitals Vital Signs Date Time Temp Pulse Resp B/P (MAP) Pulse Ox O2 Delivery O2 Flow Rate FiO2 12/12/24 09:14 100 12 95 25 12/12/24 08:04 95/58 (70) Mechanical Ventilator 12/12/24 07:00 96.8 12/11/24 15:00 3.0 Result Diagram: 12/12/24 0225 12/12/24 0235 Exam General: In respiratory distress prior to reintubation HEENT: N/C/AT, PERRLA, EOMI Neck: Supple, with no jugular venous distention and no lymphadenopathy. Chest: Symmetric expansion bilaterally. Cardiovascular: Normal S1 and S2 without any S3-S4 gallop. Abdomen: Soft nontender Extremities: No cyanosis, no clubbing and edema. VTE VTE Risk Score VTE Risk Score Reference Ranges: Score 0-1 = Low Risk (Aggressive mobilization; early ambulation; no VTE prophylaxis required) Score 2: Moderate Risk (Intermittent/Pneumatic Compression Device OR Lovenox/Heparin/Coumadin) Score 3-4: High Risk (Intermittent/Pneumatic Compression Device AND Lovenox/Heparin/Coumadin) Score > or = 5: Highest Risk (Intermittent/Pneumatic Compression Device AND Lovenox/Heparin/Coumadin) Assessment/Plan Plan Acute respiratory failure: Background history of asthma leading to intubation at least once a month according to the adopted mother. Patient now reintubated on mechanical ventilation sedated with a combination of propofol and fentanyl . Neuromuscular paralysis was not re-initiated. She is calm without any signs of agitation. She will certainly need another tracheostomy. Bedside bronchoscopy revealed a normal tracheobronchial tree without any obstructive lesions. Acute asthma exacerbation: Patient did not have any breath sounds prior to intubation but had clear breath sounds after intubation and did not seem to have any bronchospasm on mechanical ventilation i.e. peak air pressures were only 12. This raises the question whether the patient has VCD i.e. vocal cord dysfunction syndrome. History of asthma: She also has been on biologics, namely Tezepelumab. She has a background history of mechanical ventilation with tracheostomy. She was also on Symbicort and cromolyn. Currently on Solu-Medrol 60 mg IV q.6 hours and scheduled short-acting bronchodilators every 4 hours. Altered level of consciousness:Sedated CHF?: On ivabradine, a medication used for patients with a history of CHF. Mild hyponatremia: Resolved. Mild anemia of chronic disease Background history of mental issues per adopted mother: Patient was on psychotropic drugs that was stopped late May 2024. Reduce Seroquel to 100 mg per tube q.daily and discontinued gabapentin. Continued topiramate 25 mg per tube q.day, Effexor 37.5 mg per tube q.day, and clonazepam 1 mg per tube b.i.d.. Plan: Continue mechanical ventilation and sedation with propofol and fentanyl. Continue bronchodilator therapy and IV steroids. CT scan results and EEG unremarkable. Vent bundle Code status: Full code Sedation/analgesia: Fentanyl and propofol drips Neuromuscular paralysis: Stop nimbex Prophylaxis: Protonix and subcu heparin Nutrition: Vital AF 1.2 at 50 mL/hour. Overall prognosis: Guarded Critical care time: 35 minutes. Expected Outcome/Goals Expected Outcomes/Goals: Tolerance to TF, wt maintenance, bowel regularity, skin integrity ZORAN PALMER MD Dec 12, 2024 11:00
--- NOTE | 2024-12-12 11:22 | PROCEDURE NOTE CC ---
Procedure Note Providers to CC ~ Planned Procedure Bedside bronchoscopy with a disposable bronchoscope Indications Suspected upper our obstruction Post Operative Dx: See above Marketing Developer Steven Type of Anesthesia Continue sedation with fentanyl and propofol on mechanical ventilation. Informed Consent Emergency Description An adapter was attached to the patient's endotracheal tube that allows for ventilation and bronchoscopy. The bronchoscope was introduced into the patient's airway and small amounts of thick yellow secretions were noted in the patient's airway and suctioned out. Airway inspection was performed and completed with gradually pulling the endotracheal tube out of the patient's airway and inspecting the proximal trachea. No lesions were found. The bronchoscopy procedure was then terminated. Results: Normal tracheobronchial tree. Estimated Blood Loss None Complication None X-Ray Findings Not indicated ZORAN PALMER MD Dec 12, 2024 11:22
[2024-12-12] MEDS: sennosides 8.6mg tablet OGT SCH (20:09)
--- NOTE | 2024-12-12 20:39 | PROGRESS NOTE ---
Daily Progress Note Providers to CC ~ Antibiotic Timeout Antibiotic Ordered?: No Subjective Patient remains sedated and intubated on a ventilator Dr. Hudson performed a bronchoscopy which was unremarkable Objective Vital Signs Date Time Temp Pulse Resp B/P (MAP) Pulse Ox O2 Delivery O2 Flow Rate FiO2 12/12/24 20:09 83 12/12/24 20:08 12 12/12/24 20:00 113/67 12/12/24 20:00 97.3 99 Mechanical Ventilator 25 12/11/24 15:00 3.0 Result Diagram: 12/12/24 0225 12/12/24 0235 Gen. Sedated intubated on a ventilator Lungs inspiratory and expiratory wheezes appreciated bilaterally Heart normal sinus rhythm no murmurs rubs or clicks noted Abdomen soft nontender bowel sounds are normoactive Lower extremities no clubbing cyanosis, nor edema appreciated bilaterally Problem\Assessment\Plan Problems/Diagnosis: (1) Asthma exacerbation # Acute asthma exacerbation # vocal cord dysfunction syndrome # Acute hypoxic respiratory failure with respiratory distress # Community-acquired pneumonia- POA # Lactic acidosis 2/2 severe hypoxemia The patient was intubated and transferred to the ICU on the morning of 12/08/2024 On IV Rocephin and IV azithromycin On IV Solu-Medrol Albuterol PRN nebs both standard neb and continuous neb is available Scheduled DuoNeb 12/09 the patient is on fentanyl, propofol, Nimbex 12/10 attempts to turned down sedation and extubate the patient was unsuccessful today and Effexor was started as well as topiramate and gabapentin 12/11 the patient was extubated and then reintubated this evening since the patient went into respiratory distress 12/12 Dr hudson performed a bronchoscopy that was unremarkable the patient remains sedated and intubated on a ventilator # encephalopathy Telemedicine neurology Dr. Servin recommended a seizure workup EEG demonstrates general encephalopathy MRI of the head is recommended # the patient takes Ivabradine 1. Possibly CHF however echocardiogram demonstrates a normal EF and no other concerning findings on the echocardiogram 2. Uncontrolled sinus tachycardia- a possibility 3. Angina- unlikely We will have to discuss the use of this medication with the patient when she is alert and a no longer sedated on a ventilator # hypokalemia Potassium replacement protocol DVT/VTE prophylaxis: heparin Code status: Full code I spent 35 minutes on critical care time with the patient on 12/08/2024. Date of Service: Dec 12, 2024 Billing Provider: ROMI TUTTLE DO Common Visit Codes: [id number] INP/OBS CARE(HIGH) Problem Qualifiers (1) Asthma exacerbation: Qualified Codes: J45.901 - Unspecified asthma with (acute) exacerbation ROMI TUTTLE DO Dec 12, 2024 20:39
[2024-12-13] VITALS (45 sets, daily range): BP systolic 86–121; BP diastolic 50–76; PULSE 68–127; RESP 12–24; O2SAT 95–99
[2024-12-13 04:01] LABS: ABG HCO3 23.5 mmol/L (21.0-28.0); ABG OXYGEN SATURATION 98.1 % (94.0-98.0); ABG PCO2 (T) 26.3 mmHg (32.0-45.0); ABG PH (T) 7.567 (7.350-7.450); ABG PO2 (T) 90.6 mmHg (83.0-108.0); FCOHb 0.5 % (0.5-1.5); FHHb 1.9 % (0.0-5.0); FMetHb 0.3 % (0.0-1.5); FO2Hb 97.3 % (94.0-98.0); MODE ac/prvc; PATIENT TEMPERATURE 36.2; PEEP 5 cm H2O; RESPIRATORY RATE 12 b/min; TIDAL VOLUME 350 mL; TOTAL HEMOGLOBIN 11.7 G/dl (12.0-16.0)
[2024-12-13 04:40] LABS: BASOPHILS % (AUTO) 0.1 % (0-1); EOSINOPHILS % (AUTO) 0 % (0-6); HEMATOCRIT 32.8 % (35.0-45.0); HEMOGLOBIN 10.8 g/dl (12.0-16.0); LYMPHOCYTES # (AUTO) 0.4 X10'3 (1.1-4.8); LYMPHOCYTES % (AUTO) 2.9 % (21-51); MEAN CORPUSCULAR HEMOGLOBIN 27.8 PG (27.0-31.0); MEAN CORPUSCULAR HGB CONC 32.9 g/dL (33.0-36.5); MEAN CORPUSCULAR VOLUME 84.7 FL (78-98); MEAN PLATELET VOLUME 7.4 FL (7.4-10.4); MONOCYTES # (AUTO) 0.3 X10'3 (0-0.9); MONOCYTES % (AUTO) 2.6 % (2-12); NEUTROPHILS # (AUTO) 11.7 X10'3 (1.8-7.7); NEUTROPHILS % (AUTO) 94.4 % (42-75); PLATELET COUNT 214 X10'3 (140-440); RED BLOOD COUNT 3.87 X10'6 (4.20-5.60); RED CELL DISTRIBUTION WIDTH 14.6 % (11.5-14.5); WHITE BLOOD COUNT 12.4 X10'3 (4.5-11.0)
[2024-12-13 05:09] LABS: ALANINE AMINOTRANSFERASE 20 U/L (12-78); ALBUMIN 2.9 G/DL (3.4-5.0); ALKALINE PHOSPHATASE 38 IU/L (46-116); ANION GAP 9 (8-16); ASPARTATE AMINO TRANSFERASE 14 U/L (10-37); BILIRUBIN,TOTAL 0.3 MG/DL (0.1-1.0); BLOOD UREA NITROGEN 15 MG/DL (7-18); BUN/CREATININE RATIO 33.3 (10.0-20.0); CALCIUM 8.2 MG/DL (8.5-10.1); CHLORIDE 105 MMOL/L (99-107); CREATININE 0.45 MG/DL (0.40-0.90); GLUCOSE 131 MG/DL (70-104); MAGNESIUM 2.2 MG/DL (1.5-2.4); PHOSPHORUS 2.9 MG/DL (2.3-4.5); POTASSIUM 3.6 MMOL/L (3.5-5.1); SODIUM 140 MMOL/L (135-145); TOTAL CARBON DIOXIDE 26.3 MMOL/L (24-32); TOTAL PROTEIN 5.8 G/DL (6.4-8.2); eCRCL 187 ML/MIN; eGFR > 90 ML/MIN
--- NOTE | 2024-12-13 06:15 | RADIOLOGY REPORT ---
CHEST RADIOGRAPH Indication: ET Tube PLacement Technique: Single frontal view of the chest was obtained COMPARISON: DI CHEST,SINGLE VIEW on DOS: 12/12/24, DI CHEST,SINGLE VIEW on DOS: 12/11/24, DI CHEST,SINGLE VIEW on DOS: 12/11/24, DI CHEST,SINGLE VIEW on DOS: 12/10/24, DI CHEST,SINGLE VIEW on DOS: 12/09/24 FINDINGS: Lines and Tubes: Unchanged. Lungs: Left basilar atelectasis. No evidence of focal consolidation. Pleura: No effusion. No pneumothorax. Cardiomediastinal contours: Unremarkable Bones: Unremarkable IMPRESSION: 1. No acute disease. Left basilar atelectasis. 2. Lines and tubes unchanged.
[2024-12-13] MEDS: ondansetron/PF 4mg/2ml inj IV PRN (07:50)
--- NOTE | 2024-12-13 10:40 | PROGRESS NOTE ---
Subjective Subjective Patient is seen today. Extubated 12/11/2024 and reintubated on the same day due to respiratory distress. Patient currently on propofol and fentanyl as well as clonazepam 1 mg twice a day, quetiapine 100 mg per tube q.h.s., topiramate 25 mg per tube daily and venlafaxine 37.5 mg daily. Gabapentin was discontinued. Reason for visit: Pulmonary critical care follow-up Reviewed: Care Plan, H&P, Labs, Radiology Daily Progress Note Exam Vitals Vital Signs Date Time Temp Pulse Resp B/P (MAP) Pulse Ox O2 Delivery O2 Flow Rate FiO2 12/13/24 09:00 13 30 12/13/24 09:00 86 92/52 (65) 96 Mechanical Ventilator 12/13/24 08:00 97.7 12/11/24 15:00 3.0 Result Diagram: 12/13/240 12/13/24429 Exam General: In respiratory distress prior to reintubation HEENT: N/C/AT, PERRLA, EOMI Neck: Supple, with no jugular venous distention and no lymphadenopathy. Chest: Symmetric expansion bilaterally. Cardiovascular: Normal S1 and S2 without any S3-S4 gallop. Abdomen: Soft nontender Extremities: No cyanosis, no clubbing and edema. VTE VTE Risk Score VTE Risk Score Reference Ranges: Score 0-1 = Low Risk (Aggressive mobilization; early ambulation; no VTE prophylaxis required) Score 2: Moderate Risk (Intermittent/Pneumatic Compression Device OR Lovenox/Heparin/Coumadin) Score 3-4: High Risk (Intermittent/Pneumatic Compression Device AND Lovenox/Heparin/Coumadin) Score > or = 5: Highest Risk (Intermittent/Pneumatic Compression Device AND Lovenox/Heparin/Coumadin) Assessment/Plan Plan Acute respiratory failure: Background history of asthma leading to intubation at least once a month according to the adopted mother. Patient now reintubated on mechanical ventilation sedated with a combination of propofol and fentanyl . Neuromuscular paralysis was not re-initiated. She is calm without any signs of agitation. She will certainly need another tracheostomy. Bedside bronchoscopy revealed a normal tracheobronchial tree without any obstructive lesions. Acute asthma exacerbation: Patient did not have any breath sounds prior to intubation but had clear breath sounds after intubation and did not seem to have any bronchospasm on mechanical ventilation i.e. peak air pressures were only 12. This raises the question whether the patient has VCD i.e. vocal cord dysfunction syndrome. History of asthma: She also has been on biologics, namely Tezepelumab. She has a background history of mechanical ventilation with tracheostomy. She was also on Symbicort and cromolyn. Currently on Solu-Medrol 60 mg IV q.6 hours and scheduled short-acting bronchodilators every 4 hours. Patient has been intubated at least once a month for the past 12 months according to her adopted mother. I therefore think that she will need a permanent tracheostomy. Altered level of consciousness:Sedated CHF?: On ivabradine, a medication used for patients with a history of CHF. Mild hyponatremia: Resolved. Mild anemia of chronic disease Background history of mental issues per adopted mother: Patient was on psychotropic drugs that was stopped late May 2024. Reduce Seroquel to 50 mg per tube q.daily and discontinued gabapentin. Continued topiramate 25 mg per tube q.day, Effexor 37.5 mg per tube q.day, and reduce clonazepam 0.5 mg per tube b.i.d.. Plan: Continue mechanical ventilation and sedation with propofol and fentanyl. Continue bronchodilator therapy and IV steroids. CT scan results and EEG unremarkable. Vent bundle Code status: Full code Sedation/analgesia: Fentanyl and propofol drips Neuromuscular paralysis: Stop nimbex Prophylaxis: Protonix and subcu heparin Nutrition: Vital AF 1.2 at 50 mL/hour. Overall prognosis: Guarded Critical care time: 35 minutes. Expected Outcome/Goals Expected Outcomes/Goals: Tolerance to TF, wt maintenance, bowel regularity, skin integrity ZORAN PALMER MD Dec 13, 2024 10:40
[2024-12-13] MEDS: COMMUNICATION ORDER 1 EA MISC MC ONE (11:54)
[2024-12-13] MEDS: nystatin 500,000 unit/5ML UD oral suspension PO SCH (11:57)
[2024-12-13] MEDS: fentaNYL 2,500 MCG in Normal Saline 250ml IV soln bag IV SCH (13:54)
--- NOTE | 2024-12-13 17:43 | PROGRESS NOTE ---
Daily Progress Note Providers to CC ~ Antibiotic Timeout Antibiotic Ordered?: No Subjective The patient remains sedated and intubated on a ventilator Dr. Hudson spoke with the patient's mother who informed him that the patient has a lot of psych issues and does not make the best choices. - Per Rn Dr Hudson reached out to Dr. Ospina for a tracheostomy Objective Vital Signs Date Time Temp Pulse Resp B/P (MAP) Pulse Ox O2 Delivery O2 Flow Rate FiO2 12/13/24 17:00 98.6 87 14 102/64 (77) 97 Mechanical Ventilator 12/11/24 15:00 3.0 Result Diagram: 12/13/24 0430 12/13/24 0430 Gen. Sedated intubated on a ventilator Lungs inspiratory and expiratory wheezes appreciated bilaterally Heart normal sinus rhythm no murmurs rubs or clicks noted Abdomen soft nontender bowel sounds are normoactive Lower extremities no clubbing cyanosis, nor edema appreciated bilaterally Problem\Assessment\Plan Problems/Diagnosis: (1) Asthma exacerbation # Acute asthma exacerbation # vocal cord dysfunction syndrome # Acute hypoxic respiratory failure with respiratory distress # Community-acquired pneumonia- POA # Lactic acidosis 2/2 severe hypoxemia The patient was intubated and transferred to the ICU on the morning of 12/08/2024 On IV Rocephin and IV azithromycin On IV Solu-Medrol Albuterol PRN nebs both standard neb and continuous neb is available Scheduled DuoNeb 12/09 the patient is on fentanyl, propofol, Nimbex 12/10 attempts to turned down sedation and extubate the patient was unsuccessful today and Effexor was started as well as topiramate and gabapentin 12/11 the patient was extubated and then reintubated this evening since the patient went into respiratory distress 12/12 Dr hudson performed a bronchoscopy that was unremarkable the patient remains sedated and intubated on a ventilator 12/13 Dr Hudson spoke to Dr. Ospina we will obtain a tracheostomy as per Irlanda the patient's RN # encephalopathy Telemedicine neurology Dr. Servin recommended a seizure workup EEG demonstrates general encephalopathy MRI of the head is recommended # the patient takes Ivabradine 1. Possibly CHF however echocardiogram demonstrates a normal EF and no other concerning findings on the echocardiogram 2. Uncontrolled sinus tachycardia- a possibility 3. Angina- unlikely We will have to discuss the use of this medication with the patient when she is alert and a no longer sedated on a ventilator # hypokalemia Potassium replacement protocol Resolved continue to monitor DVT/VTE prophylaxis: heparin Code status: Full code I spent 35 minutes on critical care time with the patient on 12/08/2024. Date of Service: Dec 13, 2024 Billing Provider: ROMI TUTTLE DO Common Visit Codes: [id number] INP/OBS CARE(HIGH) Problem Qualifiers (1) Asthma exacerbation: Qualified Codes: J45.901 - Unspecified asthma with (acute) exacerbation ROMI TUTTLE DO Dec 13, 2024 17:43
[2024-12-13] MEDS: QUEtiapine 25mg tablet OGT SCH (19:39)
[2024-12-13] MEDS: clonazePAM 0.5mg tablet OGT SCH (19:40)
[2024-12-14] VITALS (48 sets, daily range): BP systolic 89–147; BP diastolic 49–96; PULSE 53–109; RESP 12–21; O2SAT 96–100
[2024-12-14] MEDS: propofol 1000mg/100ml bottle 100 ML IV SCH (02:59)
[2024-12-14] MEDS: magnesium hydroxide 30ml (MOM) UD suspension OGT PRN (04:53)
[2024-12-14 05:08] LABS: BASOPHILS % (AUTO) 0.1 % (0-1); EOSINOPHILS % (AUTO) 0 % (0-6); HEMATOCRIT 33.2 % (35.0-45.0); HEMOGLOBIN 11.1 g/dl (12.0-16.0); LYMPHOCYTES # (AUTO) 0.5 X10'3 (1.1-4.8); LYMPHOCYTES % (AUTO) 4.7 % (21-51); MEAN CORPUSCULAR HEMOGLOBIN 28.3 PG (27.0-31.0); MEAN CORPUSCULAR HGB CONC 33.4 g/dL (33.0-36.5); MEAN CORPUSCULAR VOLUME 84.7 FL (78-98); MEAN PLATELET VOLUME 7.4 FL (7.4-10.4); MONOCYTES # (AUTO) 0.4 X10'3 (0-0.9); MONOCYTES % (AUTO) 4.1 % (2-12); NEUTROPHILS # (AUTO) 9.9 X10'3 (1.8-7.7); NEUTROPHILS % (AUTO) 91.1 % (42-75); PLATELET COUNT 211 X10'3 (140-440); RED BLOOD COUNT 3.92 X10'6 (4.20-5.60); RED CELL DISTRIBUTION WIDTH 14.5 % (11.5-14.5); WHITE BLOOD COUNT 10.8 X10'3 (4.5-11.0)
[2024-12-14 05:35] LABS: ALANINE AMINOTRANSFERASE 18 U/L (12-78); ALBUMIN 3.1 G/DL (3.4-5.0); ALBUMIN/GLOBULIN RATIO 1.1 (1.1-1.5); ALKALINE PHOSPHATASE 39 IU/L (46-116); ANION GAP 9 (8-16); ASPARTATE AMINO TRANSFERASE 13 U/L (10-37); BILIRUBIN,TOTAL 0.3 MG/DL (0.1-1.0); BLOOD UREA NITROGEN 15 MG/DL (7-18); BUN/CREATININE RATIO 38.5 (10.0-20.0); CALCIUM 8.5 MG/DL (8.5-10.1); CHLORIDE 105 MMOL/L (99-107); CREATININE 0.39 MG/DL (0.40-0.90); GLUCOSE 133 MG/DL (70-104); MAGNESIUM 2.2 MG/DL (1.5-2.4); POTASSIUM 3.6 MMOL/L (3.5-5.1); PREALBUMIN 42.4 MG/DL (19-36); SODIUM 140 MMOL/L (135-145); TOTAL PROTEIN 5.9 G/DL (6.4-8.2); eCRCL 216 ML/MIN; eGFR > 90 ML/MIN
--- NOTE | 2024-12-14 05:41 | RADIOLOGY REPORT ---
EXAM: XR Chest, 1 View CLINICAL INDICATION: ET Tube PLacement TECHNIQUE: Frontal view of the chest. COMPARISON: DI CHEST,SINGLE VIEW on DOS: 12/13/24, DI CHEST,SINGLE VIEW on DOS: 12/12/24, DI CHEST,SING LE VIEW on DOS: 12/11/24, DI CHEST,SINGLE VIEW on DOS: 12/11/24, DI CHEST,SINGLE VIEW on DOS: 12/10/24 FINDINGS: LUNGS AND PLEURAL SPACES: Left basilar atelectasis or pneumonia. No pneumothorax. HEART: Unremarkable. No cardiomegaly. MEDIASTINUM: Unremarkable. Normal mediastinal contour. BONES/JOINTS: Unremarkable. No acute fracture. TUBES, LINES AND DEVICES: The endotracheal tube (ETT) is in satisfactory position. Enteric tube ti p cannot be seen but is below the diaphragm. OTHER FINDINGS: . . . IMPRESSION: Left basilar atelectasis or pneumonia.
[2024-12-14 05:45] LABS: TRIGLYCERIDES 58 MG/DL (20-135)
[2024-12-14] MEDS: dexmedetomidin/NS 400mcg/100ml 100 ML IV SCH (08:33)
--- NOTE | 2024-12-14 09:42 | PROGRESS NOTE ---
Progress Note Dictate Providers to CC ~ Progress Note: No new acute issues overnight Central Line/PICC still needed: No Sin Indications Met/Not Met: F/C Indications Met Antibiotic Ordered?: N/A Subjective Subjective Comfortable Objective Vitals Vital Signs Date Time Temp Pulse Resp B/P (MAP) Pulse Ox O2 Delivery O2 Flow Rate FiO2 12/14/24 08:30 88 12 124/79 (94) 96 12/14/24 08:17 Mechanical Ventilator 12/14/24 07:00 98.4 12/11/24 15:00 3.0 Lab Results: 12/14/24 0417 12/14/24 0417 Objective Heart: S1-2 reg Lungs: Clear Abd: Soft, non-tender, BS (+) Ext: No edema Neuro: Sedated Problem\Assessment\Plan Additional Plan 1-Acute Hypoxemic Resp Failure due to Asthma -Taper down steroids -Schedule for Tracheostomy -Continue Bronchdilators 2-Psych Disorder -Increase Seroquel -Continue Home [place]on [place] CC time 35min Sepsis Screening Reassessment Date: Dec 14, 2024 IAM MONTAGUE MD Dec 14, 2024 09:42
--- NOTE | 2024-12-14 09:59 | RADIOLOGY REPORT ---
CLINICAL INFORMATION: Evaluate structures prior to tracheostomy placement. TECHNIQUE: Axial CT images of the neck soft tissues were obtained without IV contrast. Axial CT imag es of the chest were also obtained without IV contrast. Coronal and sagittal reformatted images were obtained, stored, and reviewed. One or more of the following dose reduction techniques were used: Aut omated exposure control. Adjustment of mA and/or kV according to patient size. CTDIvol = 18.42, 17.51 mGy DLP = 615.69, 594.2 mGy-cm COMPARISON: Same day chest radiograph. FINDINGS: CT neck: Nasogastric tube and tracheostomy tube in place. There is mild edema and trace amount of flu id in the nasopharynx, oropharynx, and hypopharynx. Limited evaluation for mass or fluid collection w ithout IV contrast. No cervical lymphadenopathy. Parotid glands, submandibular glands, and thyroid gl and are unremarkable. No significant osseous abnormality identified. CT chest: Small bilateral pleural effusions with overlying atelectasis. No dense focal consolidation visualized. No pneumothorax. Distal tip of the endotracheal tube terminates above the level of the ca [place]. Nasogastric tube reaches the stomach. Small pericardial effusion. Heart size is within normal l imits. No thoracic aortic aneurysm. No mediastinal or hilar lymphadenopathy. Visualized portions of t he upper abdomen appear grossly unremarkable. No significant osseous abnormality. IMPRESSION: 1. Endotracheal tube and nasal gastric tube as described above. 2. Mild pharyngeal edema and trace fluid. 3. Small bilateral pleural effusions with overlying atelectasis. 4. Small pericardial effusion.
[2024-12-14] MEDS: quetiapine 100mg tablet OGT SCH (10:14)
--- NOTE | 2024-12-14 19:57 | PROGRESS NOTE ---
Daily Progress Note Providers to CC ~ Antibiotic Timeout Antibiotic Ordered?: No Subjective The patient remains sedated and intubated on a ventilator and is scheduled to have a tracheostomy with Dr. Ospina Objective Vital Signs Date Time Temp Pulse Resp B/P (MAP) Pulse Ox O2 Delivery O2 Flow Rate FiO2 12/14/24 19:18 62 12 Mechanical Ventilator 25 12/14/24 19:12 97 12/14/24 18:37 123/86 12/14/24 07:00 98.4 12/11/24 15:00 3.0 Result Diagram: 12/14/247 12/14/24416 Gen. Sedated intubated on a ventilator Lungs inspiratory and expiratory wheezes appreciated bilaterally Heart normal sinus rhythm no murmurs rubs or clicks noted Abdomen soft nontender bowel sounds are normoactive Lower extremities no clubbing cyanosis, nor edema appreciated bilaterally Problem\Assessment\Plan Problems/Diagnosis: (1) Asthma exacerbation # Acute asthma exacerbation # vocal cord dysfunction syndrome # Acute hypoxic respiratory failure with respiratory distress # Community-acquired pneumonia- POA # Lactic acidosis 2/2 severe hypoxemia The patient was intubated and transferred to the ICU on the morning of 12/08/2024 On IV Rocephin and IV azithromycin On IV Solu-Medrol Albuterol PRN nebs both standard neb and continuous neb is available Scheduled DuoNeb 12/09 the patient is on fentanyl, propofol, Nimbex 12/10 attempts to turned down sedation and extubate the patient was unsuccessful today and Effexor was started as well as topiramate and gabapentin 12/11 the patient was extubated and then reintubated this evening since the patient went into respiratory distress 12/12 Dr hudson performed a bronchoscopy that was unremarkable the patient remains sedated and intubated on a ventilator 12/13 Dr Hudson spoke to Dr. Ospina we will obtain a tracheostomy as per Irlanda the patient's RN 12/14 remains intubated and sedated waiting for a tracheostomy # encephalopathy Telemedicine neurology Dr. Servin recommended a seizure workup EEG demonstrates general encephalopathy MRI of the head is recommended # the patient takes Ivabradine 1. Possibly CHF however echocardiogram demonstrates a normal EF and no other concerning findings on the echocardiogram 2. Uncontrolled sinus tachycardia- a possibility 3. Angina- unlikely We will have to discuss the use of this medication with the patient when she is alert and a no longer sedated on a ventilator # hypokalemia Potassium replacement protocol Resolved continue to monitor DVT/VTE prophylaxis: heparin Code status: Full code I spent 35 minutes on critical care time with the patient on 12/08/2024. Date of Service: Dec 14, 2024 Billing Provider: ROMI TUTTLE DO Common Visit Codes: [id number] INP/OBS CARE(HIGH) Problem Qualifiers (1) Asthma exacerbation: Qualified Codes: J45.901 - Unspecified asthma with (acute) exacerbation ROMI TUTTLE DO Dec 14, 2024 19:57
[2024-12-15] VITALS (47 sets, daily range): BP systolic 82–145; BP diastolic 46–93; PULSE 56–105; RESP 12–20; O2SAT 96–100
--- NOTE | 2024-12-15 01:35 | PROGRESS NOTE ---
Progress Note Dictate Providers to CC Critically ill in the ICU on ventilator~ Progress Note: Discussed the case with RN. Review of records. Overall Young patient with acute exacerbation of asthma. Unable to be extubated. Concern for vocal cord dysfunction. Looks like has had prior episodes of intubation and concern for anatomical medical issues as per RN. Had workup CT scan of the neck pending results. No new issues. Per RNpatient does respond appropriately to stimulation. Sedation has now been adjusted tolerating Precedex. Antibiotic Ordered?: N/A Subjective Subjective On ventilator Intubated and sedated. Cardiac rhythm seems normal on the monitor. No distress Good urine output noted Laboratory Tests Test 12/14/24 02:55 12/14/24 04:17 12/14/24 08:50 12/14/24 15:11 Glucometer 119 mg/dl (70-104) 111 mg/dl (70-104) 121 mg/dl (70-104) White Blood Count 10.8 X10'3 (4.5-11.0) Red Blood Count 3.92 X10'6 (4.20-5.60) Hemoglobin 11.1 g/dl (12.0-16.0) Hematocrit 33.2 % (35.0-45.0) Mean Corpuscular Volume 84.7 FL (78-98) Mean Corpuscular Hemoglobin 28.3 PG (27.0-31.0) Mean Corpuscular Hemoglobin Concent 33.4 g/dL (33.0-36.5) Red Cell Distribution Width 14.5 % (11.5-14.5) Platelet Count 211 X10'3 (140-440) Mean Platelet Volume 7.4 FL (7.4-10.4) Neutrophils (%) (Auto) 91.1 % (42-75) Lymphocytes (%) (Auto) 4.7 % (21-51) Monocytes (%) (Auto) 4.1 % (2-12) Eosinophils (%) (Auto) 0 % (0-6) Basophils (%) (Auto) 0.1 % (0-1) Neutrophils # (Auto) 9.9 X10'3 (1.8-7.7) Lymphocytes # (Auto) 0.5 X10'3 (1.1-4.8) Monocytes # (Auto) 0.4 X10'3 (0-0.9) Eosinophils # (Auto) 0.0 X10'3 (0-0.9) Basophils # (Auto) 0.0 X10'3 (0-0.2) CBC Comment Sodium Level 140 MMOL/L (135-145) Potassium Level 3.6 MMOL/L (3.5-5.1) Chloride Level 105 MMOL/L (99-107) Carbon Dioxide Level 26.0 MMOL/L (24-32) Anion Gap 9 (8-16) Blood Urea Nitrogen 15 MG/DL (7-18) Creatinine 0.39 MG/DL (0.40-0.90) Estimated GFR/1.73 m2 > 90 ML/MIN BUN/Creatinine Ratio 38.5 (10.0-20.0) Glucose Level 133 MG/DL (70-104) Calcium Level 8.5 MG/DL (8.5-10.1) Magnesium Level 2.2 MG/DL (1.5-2.4) Total Bilirubin 0.3 MG/DL (0.1-1.0) Aspartate Amino Transf (AST/SGOT) 13 U/L (10-37) Alanine Aminotransferase (ALT/SGPT) 18 U/L (12-78) Alkaline Phosphatase 39 IU/L (46-116) Total Protein 5.9 G/DL (6.4-8.2) Albumin 3.1 G/DL (3.4-5.0) Globulin 2.8 G/DL (2.7-4.3) Albumin/Globulin Ratio 1.1 (1.1-1.5) Prealbumin 42.4 MG/DL (19-36) Triglycerides Level 58 MG/DL (20-135) Chemistry Comments Test 12/14/24 21:26 Glucometer 120 mg/dl (70-104) Objective Vitals Vital Signs Date Time Temp Pulse Resp B/P (MAP) Pulse Ox O2 Delivery O2 Flow Rate FiO2 12/15/24 01:00 12 25 12/15/24 01:00 95.9 57 136/88 (104) 99 Mechanical Ventilator 12/11/24 15:00 3.0 Lab Results: 12/14/247 12/14/247 Problem\Assessment\Plan Additional Plan 1. Acute respiratory failure 2. Asthma exacerbation 3. Concern for vocal cord dysfunction 4. Encephalopathy 5. Anemia of chronic disease Plan Continue the current supports. Tracheostomy plans per primary team. Stay on the current regimen for sedation. Restraint orders renewed as she is at risk for self extubation and removal of lines due to encephalopathy. KEV SAMUEL MD Dec 15, 2024 01:35
[2024-12-15 01:55] LABS: BASOPHILS % (AUTO) 0 % (0-1); EOSINOPHILS % (AUTO) 0.4 % (0-6); HEMATOCRIT 32.3 % (35.0-45.0); HEMOGLOBIN 10.8 g/dl (12.0-16.0); LYMPHOCYTES # (AUTO) 1.6 X10'3 (1.1-4.8); LYMPHOCYTES % (AUTO) 24.9 % (21-51); MEAN CORPUSCULAR HEMOGLOBIN 28.3 PG (27.0-31.0); MEAN CORPUSCULAR HGB CONC 33.4 g/dL (33.0-36.5); MEAN CORPUSCULAR VOLUME 84.7 FL (78-98); MEAN PLATELET VOLUME 7.3 FL (7.4-10.4); MONOCYTES # (AUTO) 0.6 X10'3 (0-0.9); MONOCYTES % (AUTO) 9.7 % (2-12); NEUTROPHILS # (AUTO) 4.1 X10'3 (1.8-7.7); PLATELET COUNT 181 X10'3 (140-440); RED BLOOD COUNT 3.81 X10'6 (4.20-5.60); RED CELL DISTRIBUTION WIDTH 14.9 % (11.5-14.5); WHITE BLOOD COUNT 6.3 X10'3 (4.5-11.0)
[2024-12-15 02:11] LABS: ALANINE AMINOTRANSFERASE 18 U/L (12-78); ALBUMIN 2.6 G/DL (3.4-5.0); ALKALINE PHOSPHATASE 37 IU/L (46-116); ANION GAP 7 (8-16); ASPARTATE AMINO TRANSFERASE 7 U/L (10-37); BILIRUBIN,TOTAL 0.2 MG/DL (0.1-1.0); BLOOD UREA NITROGEN 16 MG/DL (7-18); BUN/CREATININE RATIO 43.2 (10.0-20.0); CALCIUM 7.6 MG/DL (8.5-10.1); CHLORIDE 112 MMOL/L (99-107); CREATININE 0.37 MG/DL (0.40-0.90); GLUCOSE 119 MG/DL (70-104); MAGNESIUM 2.4 MG/DL (1.5-2.4); SODIUM 147 MMOL/L (135-145); TOTAL CARBON DIOXIDE 28.4 MMOL/L (24-32); TOTAL PROTEIN 5.3 G/DL (6.4-8.2); eCRCL 228 ML/MIN; eGFR > 90 ML/MIN
[2024-12-15] MEDS: potassium Cl 40MEQ/1/2NS 520ml 520 ML IV ONE (03:10)
[2024-12-15 03:24] LABS: ABG BASE EXCESS -1.2 mmol/L (-2.0-3.0); ABG OXYGEN SATURATION 98.5 % (94.0-98.0); ABG PCO2 (T) 35.3 mmHg (32.0-45.0); ABG PH (T) 7.428 (7.350-7.450); ABG PO2 (T) 110.1 mmHg (83.0-108.0); ALLEN'S TEST POSITIVE; FCOHb 0.2 % (0.5-1.5); FHHb 1.5 % (0.0-5.0); FMetHb 0.3 % (0.0-1.5); MODE VENT - AC; PEEP 5 cm H2O; RESPIRATORY RATE 12 b/min; TIDAL VOLUME 350 mL; TOTAL HEMOGLOBIN 11.2 G/dl (12.0-16.0)
--- NOTE | 2024-12-15 06:07 | RADIOLOGY REPORT ---
CHEST RADIOGRAPH Indication: ET Tube PLacement Technique: Single frontal view of the chest was obtained COMPARISON: DI CHEST,SINGLE VIEW on DOS: 12/14/24, DI CHEST,SINGLE VIEW on DOS: 12/13/24, DI CHEST,SINGLE VIEW on DOS: 12/12/24, DI CHEST,SINGLE VIEW on DOS: 12/11/24, DI CHEST,SINGLE VIEW on DOS: 12/11/24 FINDINGS: Lines and Tubes: Endotracheal tube is slightly high in position. Enteric catheter in satisfactory po sition. Lungs: Clear Pleura: No effusion. No pneumothorax. Cardiomediastinal contours: Unremarkable Bones: Unremarkable IMPRESSION: Recommend advancement of the endotracheal tube by 1 cm.
--- NOTE | 2024-12-15 06:24 | PROGRESS NOTE ---
Progress Note Dictate Providers to CC ~ Progress Note: No new acute issues overnight. Awaiting Tracheostomy Central Line/PICC still needed: No Sin Indications Met/Not Met: F/C Indications Met Antibiotic Ordered?: No Subjective Subjective Comfortable Objective Vitals Vital Signs Date Time Temp Pulse Resp B/P (MAP) Pulse Ox O2 Delivery O2 Flow Rate FiO2 12/15/24 06:00 90 12 82/46 (58) 99 Mechanical Ventilator 12/15/24 03:00 95.5 12/11/24 15:00 3.0 Lab Results: 12/15/24 0132 12/15/24 013 Objective Heart: S1-2 reg Lungs: Clear Abd: Soft, non-tender, BS (+) Ext: No edema Neuro: Sedated Problem\Assessment\Plan Additional Plan 1-Acute Hypoxemic Resp Failure -Awaiting Tracheostomy 2-Asthma -Continue current tx 3-Psych Disorder -Continue current tx Alysa Montague CC time 35min Sepsis Screening Reassessment Date: Dec 15, 2024 IAM MONTAGUE MD Dec 15, 2024 06:24
[2024-12-15] MEDS: magnesium hydroxide 30ml (MOM) UD suspension OGT SCH (07:40)
[2024-12-15 08:25] LABS: PHOSPHORUS 3.4 MG/DL (2.3-4.5)
[2024-12-15] MEDS: predniSONE 5mg/5ml UD oral solution PO SCH (08:36)
[2024-12-15] MEDS: normal saline 1000ml 1,000 ML IV ONE (09:25)
[2024-12-15] MEDS: normal saline 1000ml 1,000 ML IV SCH (11:00)
[2024-12-15 11:39] LABS: BILIRUBIN,URINE NEGATIVE (Neg); CLARITY,URINE CLEAR (Clear); COLOR,URINE YELLOW (Yellow); GLUCOSE, URINE NEGATIVE (Neg); KETONES,URINE NEGATIVE (Neg); LEUKOCYTE ESTERASE ,URINE SMALL (Neg); NITRITES, URINE NEGATIVE (Neg); OCCULT BLOOD,URINE SMALL (Neg); PH,URINE 7.5 (4.8-8.0); PROTEIN,URINE NEGATIVE (Neg); UROBILINOGEN,URINE 0.2 E.U/dL (0.2-1.0)
[2024-12-15 11:50] LABS: UA COLLECTION TYPE OTHER
[2024-12-15 11:59] LABS: OSMOLALITY UA 361 MOSM/K (50-1400)
[2024-12-15 12:01] LABS: SODIUM,URINE RANDOM 146 MEQ/L
[2024-12-15 12:02] LABS: AMORPHOUS PHOSPHATES 2+; BACTERIA,URINE 1+ /HPF (Neg); RBC,URINE 0-2 /HPF (0-2); SQUAMOUS EPITHELIAL CELL,UR NONE SEEN /LPF (FEW)
[2024-12-15] MEDS ORDERED: midazolam 1 mg/ML 2ml injection IV PRN (12:05)
[2024-12-15] MEDS: midazolam 100mg in NS 100ml 100 ML IV SCH (12:29)
--- NOTE | 2024-12-15 16:06 | PROGRESS NOTE ---
Daily Progress Note Providers to CC ~ Antibiotic Timeout Antibiotic Ordered?: No Subjective Patient seen at bedside in ICU. Sedated and vented. Trach planned for tomorrow. Objective Vital Signs Date Time Temp Pulse Resp B/P (MAP) Pulse Ox O2 Delivery O2 Flow Rate FiO2 12/15/24 15:50 84 12 Mechanical Ventilator 21 12/15/24 15:37 100 12/15/24 15:00 105/72 (83) 12/15/24 11:15 97.9 12/15/24 09:44 0 Result Diagram: 12/15/2413112/15/24131 Physical Exam General: A&Ox 3, NAD HEENT: Normocephalic, PERRLA Neck: Supple, trachea midline, no JVD Chest: Clear to auscultation bilaterally Cardiovascular: RRR, S1&S2 GI: Soft and nontender Extremities: No cyanosis/clubbing/or edema STAFF TECHNOLOGIST: CN II-XII intact, no focal deficits Musculoskeletal: No paraspinal muscle tenderness, no muscle spasm Skin: Warm and intact Problem\Assessment\Plan Problems/Diagnosis: (1) Asthma exacerbation # Acute asthma exacerbation # Vocal cord dysfunction syndrome # Acute hypoxic respiratory failure # Community-acquired pneumonia- POA # Lactic acidosis 2/2 severe hypoxemia The patient was intubated and transferred to the ICU on the morning of 12/08/2024 On IV Rocephin and IV azithromycin On IV Solu-Medrol Albuterol PRN nebs both standard neb and continuous neb is available Scheduled DuoNeb 12/09 the patient is on fentanyl, propofol, Nimbex 12/10 attempts to turned down sedation and extubate the patient was unsuccessful today and Effexor was started as well as topiramate and gabapentin 12/11 the patient was extubated and then reintubated this evening since the patient went into respiratory distress 12/12 Dr hudson performed a bronchoscopy that was unremarkable the patient remains sedated and intubated on a ventilator 12/13 Dr Hudson spoke to Dr. Ospina we will obtain a tracheostomy as per Irlanda the patient's RN 12/14 remains intubated and sedated waiting for a tracheostomy 12/15 trach planned for tomorrow # Encephalopathy Telemedicine neurology Dr. Servin recommended a seizure workup EEG demonstrates general encephalopathy MRI of the head is recommended # Hypokalemia -Potassium replacement protocol DVT/VTE prophylaxis: heparin Code status: Full code Disposition: LTAC Date of Service: Dec 15, 2024 Billing Provider: OVIDIO KHAN Common Visit Codes: [id number] INP/OBS CARE(HIGH) Problem Qualifiers (1) Asthma exacerbation: Qualified Codes: J45.901 - Unspecified asthma with (acute) exacerbation OVIDIO KHAN Dec 15, 2024 16:06
[2024-12-15 16:07] LABS: ALANINE AMINOTRANSFERASE 17 U/L (12-78); ALBUMIN 2.7 G/DL (3.4-5.0); ALKALINE PHOSPHATASE 35 IU/L (46-116); ANION GAP 7 (8-16); ASPARTATE AMINO TRANSFERASE 14 U/L (10-37); BILIRUBIN,TOTAL 0.2 MG/DL (0.1-1.0); BLOOD UREA NITROGEN 12 MG/DL (7-18); BUN/CREATININE RATIO 44.4 (10.0-20.0); CHLORIDE 111 MMOL/L (99-107); CREATININE 0.27 MG/DL (0.40-0.90); GLUCOSE 117 MG/DL (70-104); MAGNESIUM 2.6 MG/DL (1.5-2.4); POTASSIUM 3.8 MMOL/L (3.5-5.1); SODIUM 144 MMOL/L (135-145); TOTAL CARBON DIOXIDE 25.8 MMOL/L (24-32); TOTAL PROTEIN 5.5 G/DL (6.4-8.2); eCRCL 312 ML/MIN; eGFR > 90 ML/MIN
[2024-12-16] VITALS (45 sets, daily range): BP systolic 85–148; BP diastolic 48–102; PULSE 54–90; RESP 0–12; O2SAT 90–99
[2024-12-16 01:45] LABS: BASOPHILS % (AUTO) 0.2 % (0-1); EOSINOPHILS % (AUTO) 0.6 % (0-6); HEMATOCRIT 33.1 % (35.0-45.0); HEMOGLOBIN 11.1 g/dl (12.0-16.0); MEAN CORPUSCULAR HEMOGLOBIN 28.2 PG (27.0-31.0); MEAN CORPUSCULAR HGB CONC 33.4 g/dL (33.0-36.5); MEAN CORPUSCULAR VOLUME 84.5 FL (78-98); MEAN PLATELET VOLUME 7.2 FL (7.4-10.4); MONOCYTES # (AUTO) 0.5 X10'3 (0-0.9); MONOCYTES % (AUTO) 7.4 % (2-12); NEUTROPHILS # (AUTO) 4.4 X10'3 (1.8-7.7); NEUTROPHILS % (AUTO) 62.8 % (42-75); PLATELET COUNT 195 X10'3 (140-440); RED BLOOD COUNT 3.92 X10'6 (4.20-5.60); RED CELL DISTRIBUTION WIDTH 14.9 % (11.5-14.5)
[2024-12-16 02:02] LABS: ALANINE AMINOTRANSFERASE 19 U/L (12-78); ALBUMIN 2.6 G/DL (3.4-5.0); ALKALINE PHOSPHATASE 38 IU/L (46-116); ANION GAP 8 (8-16); ASPARTATE AMINO TRANSFERASE 10 U/L (10-37); BILIRUBIN,TOTAL 0.2 MG/DL (0.1-1.0); BLOOD UREA NITROGEN 11 MG/DL (7-18); BUN/CREATININE RATIO 52.4 (10.0-20.0); CALCIUM 7.6 MG/DL (8.5-10.1); CHLORIDE 112 MMOL/L (99-107); CREATININE 0.21 MG/DL (0.40-0.90); GLUCOSE 106 MG/DL (70-104); MAGNESIUM 2.2 MG/DL (1.5-2.4); PHOSPHORUS 3.5 MG/DL (2.3-4.5); POTASSIUM 3.3 MMOL/L (3.5-5.1); SODIUM 146 MMOL/L (135-145); TOTAL CARBON DIOXIDE 26.3 MMOL/L (24-32); TOTAL PROTEIN 5.2 G/DL (6.4-8.2); TRIGLYCERIDES 108 MG/DL (20-135); eCRCL 402 ML/MIN; eGFR > 90 ML/MIN
[2024-12-16 02:07] LABS: TOTAL CELLS COUNTED 100
[2024-12-16 02:08] LABS: PLATELET ESTIMATE NORMAL; SMUDGE CELLS 1+
[2024-12-16 03:23] LABS: ABG BASE EXCESS -0.9 mmol/L (-2.0-3.0); ABG HCO3 21.9 mmol/L (21.0-28.0); ABG OXYGEN SATURATION 97.8 % (94.0-98.0); ABG PCO2 (T) 28.4 mmHg (32.0-45.0); ABG PH (T) 7.498 (7.350-7.450); ALLEN'S TEST POSITIVE; FCOHb 0.2 % (0.5-1.5); FHHb 2.2 % (0.0-5.0); FO2Hb 97.6 % (94.0-98.0); MODE VENT - AC; PATIENT TEMPERATURE 35.4; PEEP 5 cm H2O; RESPIRATORY RATE 12 b/min; TIDAL VOLUME 350 mL; TOTAL HEMOGLOBIN 11.8 G/dl (12.0-16.0)
[2024-12-16] MEDS: potassium Cl 40MEQ/1/2NS 520ml 520 ML IV ONE (04:18)
--- NOTE | 2024-12-16 06:07 | RADIOLOGY REPORT ---
EXAM: XR Chest, 1 View CLINICAL INDICATION: ET Tube PLacement TECHNIQUE: Frontal view of the chest. COMPARISON: DI CHEST,SINGLE VIEW on DOS: 12/15/24, DI CHEST,SINGLE VIEW on DOS: 12/14/24, DI CHEST,SIN GLE VIEW on DOS: 12/13/24, DI CHEST,SINGLE VIEW on DOS: 12/12/24, DI CHEST,SINGLE VIEW on DOS: 12/11/24 FINDINGS: LUNGS AND PLEURAL SPACES: Unremarkable. No consolidation. No pneumothorax. HEART: Unremarkable. No cardiomegaly. MEDIASTINUM: Unremarkable. Normal mediastinal contour. BONES/JOINTS: Unremarkable. No acute fracture. TUBES, LINES AND DEVICES: The endotracheal tube (ETT) is in satisfactory position. Enteric tube ti p in the stomach. OTHER FINDINGS: . . . IMPRESSION: No significant change from the prior exam.
--- NOTE | 2024-12-16 06:27 | PROGRESS NOTE ---
Progress Note Dictate Providers to CC ~ Progress Note: No new acute issues last night. Several episodes of Hypoxemia yesterday when sedation weaned down Central Line/PICC still needed: Yes Sin Indications Met/Not Met: F/C Indications Met Antibiotic Ordered?: No Objective Vitals Vital Signs Date Time Temp Pulse Resp B/P (MAP) Pulse Ox O2 Delivery O2 Flow Rate FiO2 12/16/24 06:00 63 12 131/86 (101) 97 Mechanical Ventilator 21 12/15/24 19:00 96.8 12/15/24 09:44 0 Lab Results: 12/16/24 0129 12/16/24 0129 Objective Heart: S1-2 reg Lungs: Clear Abd: Soft, non-tender, BS (+) Ext: No edema Neuro: Sedated Problem\Assessment\Plan Additional Plan 1-Acute hypoxemic Resp Failure -Awaiting Trach -Weaning trials 2-Asthma -Continue current iftikhar Montague CC time 35min Sepsis Screening Reassessment Date: Dec 16, 2024 IAM MONTAGUE MD Dec 16, 2024 06:27
[2024-12-16] MEDS: predniSONE 5mg/5ml UD oral solution PO SCH (07:24)
[2024-12-16] MEDS: desmopressin 4 MCG/1 ML amp SQ ONE (08:10)
[2024-12-16] MEDS ORDERED: sevoflurane 250ml liquid IH ONE (11:20)
--- NOTE | 2024-12-16 11:27 | PROGRESS NOTE ---
Progress Note ID Providers to CC ~ Progress Note Progress Note: discussed procedure including risks/benefits/alternatives IGGY GARZA MD Dec 16, 2024 11:27
[2024-12-16] MEDS ORDERED: rocuronium 10mg/ml inj IV ONE (12:11)
--- NOTE | 2024-12-16 12:43 | OPERATIVE REPORT ---
Operative Report Providers to CC ~ Date of Procedure: Dec 16, 2024 Pre-Operative Diagnosis: resp failure Post-Operative Diagnosis SAME as PRE-Op Procedure Performed perc trach Surgeon: carolina garg Anesthesiologist: Nerissa Elliott Type of Anesthesia: General Findings: normal trachea Estimated Blood Loss: min Specimen Removed: none IGGY GARZA MD Dec 16, 2024 12:43
--- NOTE | 2024-12-16 13:31 | RADIOLOGY REPORT ---
CLINICAL INFORMATION: Tracheostomy placement. TECHNIQUE: Single AP portable chest radiograph was obtained. COMPARISON: DI CHEST,SINGLE VIEW on DOS: 12/16/24 5:12 a.m., DI CHEST,SINGLE VIEW on DOS: 12/15/24, DI CHEST,SINGLE VIEW on DOS: 12/14/24 FINDINGS: Distal aspect of reported tracheostomy tube is in satisfactory position. Satisfactory positioning of the enteric tube also noted. Lungs are clear. No pneumothorax, pleural effusion, or focal consolidati on. No other significant interval change. IMPRESSION: Satisfactory positioning of the visualized portions of the reported tracheostomy tube and enteric tub e. No other significant interval change.
--- NOTE | 2024-12-16 13:33 | PROGRESS NOTE ---
Daily Progress Note Providers to CC ~ Antibiotic Timeout Antibiotic Ordered?: No Subjective Patient seen at bedside in ICU. Sedated and vented. Trach planned for today. 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 Musculoskeletal: No paraspinal muscle tenderness, no muscle spasm Skin: Warm and intact Problem\Assessment\Plan Problems/Diagnosis: (1) Asthma exacerbation # Acute asthma exacerbation # Vocal cord dysfunction syndrome # Acute hypoxic respiratory failure # Community-acquired pneumonia- POA # Lactic acidosis 2/2 severe hypoxemia The patient was intubated and transferred to the ICU on the morning of 12/08/2024 On IV Rocephin and IV azithromycin On IV Solu-Medrol Albuterol PRN nebs both standard neb and continuous neb is available Scheduled DuoNeb 12/09 the patient is on fentanyl, propofol, Nimbex 12/10 attempts to turned down sedation and extubate the patient was unsuccessful today and Effexor was started as well as topiramate and gabapentin 12/11 the patient was extubated and then reintubated this evening since the patient went into respiratory distress 12/12 Dr hudson performed a bronchoscopy that was unremarkable the patient remains sedated and intubated on a ventilator 12/13 Dr Hudson spoke to Dr. Ospina we will obtain a tracheostomy as per Irlanda the patient's RN 12/14 remains intubated and sedated waiting for a tracheostomy 12/15 trach planned for tomorrow 12/16 trach today # Encephalopathy Telemedicine neurology Dr. Servin recommended a seizure workup EEG demonstrates general encephalopathy MRI of the head is recommended # Hypokalemia -Potassium replacement protocol DVT/VTE prophylaxis: heparin Code status: Full code Disposition: LTAC Date of Service: Dec 16, 2024 Billing Provider: OVIDIO KHAN Common Visit Codes: [id number] INP/OBS CARE(HIGH) Problem Qualifiers (1) Asthma exacerbation: Qualified Codes: J45.901 - Unspecified asthma with (acute) exacerbation OVIDIO KHAN Dec 16, 2024 13:33
--- NOTE | 2024-12-16 14:30 | ELECTROCARDIOGRAPH REPORT ---
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 Ayden Elliott Measurements Intervals [place] Rate: 65 P: 66 AR: 165 QRS: 72 QRSD: 96 T: 72 QT: 457 QTc: 476 Interpretive Statements Sinus rhythm ST elevation suggests acute pericarditis vs Early repolarization Borderline prolonged QT interval Electronically Signed On 12-18-2024 8:16:[address] Ayden Elliott Please click the below link to view image of tracing.
[2024-12-16] MEDS: lactulose 20gm/30ml cup PO SCH (19:58)
[2024-12-16] MEDS: ringers solution, lacted 1,000 ML IV ONE (20:26)
[2024-12-17] VITALS (48 sets, daily range): BP systolic 75–131; BP diastolic 35–96; PULSE 60–133; RESP 9–30; O2SAT 93–99
[2024-12-17] MEDS: ringers solution, lacted 1,000 ML IV ONE (00:45)
--- NOTE | 2024-12-17 01:13 | PROGRESS NOTE ---
Progress Note Dictate Providers to CC resp failure- critically ill in icu~ Progress Note: 24-year-old with asthma status currently with respiratory failure on ventilator via ET tube now transitioned to trach. Patient evaluated with the help of two-way communicating A/V technology. RN was at the bedside. Throughout the night multiple times she had low blood pressure readings requiring fluid boluses. Patient had tracheostomy today. No new issues. Sedation is being lightened. Patient does respond appropriately per RN Antibiotic Ordered?: N/A Objective Vitals Vital Signs Date Time Temp Pulse Resp B/P (MAP) Pulse Ox O2 Delivery O2 Flow Rate FiO2 12/17/24 01:00 12 21 12/17/24 01:00 64 94/64 (74) 99 Mechanical Ventilator 12/16/24 23:00 95.9 12/16/24 20:00 0.0 Lab Results: 12/16/24 0129 12/16/24 0129 Objective Limited video exam Laboratory Tests Test 12/16/24 01:29 12/16/24 02:47 12/16/24 03:21 12/16/24 07:50 White Blood Count 7.0 X10'3 (4.5-11.0) Red Blood Count 3.92 X10'6 (4.20-5.60) Hemoglobin 11.1 g/dl (12.0-16.0) Hematocrit 33.1 % (35.0-45.0) Mean Corpuscular Volume 84.5 FL (78-98) Mean Corpuscular Hemoglobin 28.2 PG (27.0-31.0) Mean Corpuscular Hemoglobin Concent 33.4 g/dL (33.0-36.5) Red Cell Distribution Width 14.9 % (11.5-14.5) Platelet Count 195 X10'3 (140-440) Mean Platelet Volume 7.2 FL (7.4-10.4) Neutrophils (%) (Auto) 62.8 % (42-75) Lymphocytes (%) (Auto) 29.0 % (21-51) Monocytes (%) (Auto) 7.4 % (2-12) Eosinophils (%) (Auto) 0.6 % (0-6) Basophils (%) (Auto) 0.2 % (0-1) Neutrophils # (Auto) 4.4 X10'3 (1.8-7.7) Lymphocytes # (Auto) 2.0 X10'3 (1.1-4.8) Monocytes # (Auto) 0.5 X10'3 (0-0.9) Eosinophils # (Auto) 0.0 X10'3 (0-0.9) Basophils # (Auto) 0.0 X10'3 (0-0.2) CBC Comment Differential Total Cells Counted 100 Neutrophils % (Manual) 60.0 % (42-75) Lymphocytes % (Manual) 31.0 % (21-51) Monocytes % (Manual) 8.0 % (2-12) Reactive Lymphocytes 1.0 % (0-0) Smudge Cells 1+ Platelet Estimate Normal Red Blood Cell Morphology Perf Basophilic Stippling Sodium Level 146 MMOL/L (135-145) Potassium Level 3.3 MMOL/L (3.5-5.1) Chloride Level 112 MMOL/L (99-107) Carbon Dioxide Level 26.3 MMOL/L (24-32) Anion Gap 8 (8-16) Blood Urea Nitrogen 11 MG/DL (7-18) Creatinine 0.21 MG/DL (0.40-0.90) Estimated GFR/1.73 m2 > 90 ML/MIN BUN/Creatinine Ratio 52.4 (10.0-20.0) Glucose Level 106 MG/DL (70-104) Calcium Level 7.6 MG/DL (8.5-10.1) Phosphorus Level 3.5 MG/DL (2.3-4.5) Magnesium Level 2.2 MG/DL (1.5-2.4) Total Bilirubin 0.2 MG/DL (0.1-1.0) Aspartate Amino Transf (AST/SGOT) 10 U/L (10-37) Alanine Aminotransferase (ALT/SGPT) 19 U/L (12-78) Alkaline Phosphatase 38 IU/L (46-116) Total Protein 5.2 G/DL (6.4-8.2) Albumin 2.6 G/DL (3.4-5.0) Globulin 2.6 G/DL (2.7-4.3) Albumin/Globulin Ratio 1.0 (1.1-1.5) Triglycerides Level 108 MG/DL (20-135) Chemistry Comments Glucometer 112 mg/dl (70-104) 106 mg/dl (70-104) Blood Gas Specimen Type Arterial Blood Gas Puncture Site Rr O2 Saturation 97.8 % (94.0-98.0) Arterial Blood pH (Temp corrected) 7.498 (7.350-7.450) Arterial Blood pCO2 (Temp correct) 28.4 mmHg (32.0-45.0) Arterial Blood pO2 (Temp corrected) 90.0 mmHg (83.0-108.0) Arterial Blood PO2/FiO2 Ratio 4.72 mmHg/% Arterial Blood HCO3 21.9 mmol/L (21.0-28.0) Arterial Blood Base Excess -0.9 mmol/L (-2.0-3.0) Arterial Blood Oxyhemoglobin 97.6 % (94.0-98.0) Arterial Blood Carboxyhemoglobin 0.2 % (0.5-1.5) Arterial Blood Methemoglobin 0.0 % (0.0-1.5) Arterial Blood Deoxyhemoglobin 2.2 % (0.0-5.0) Preston Test Positive Blood Gas Hemoglobin 11.8 G/dl (12.0-16.0) Blood Gas Temperature 35.4 Blood Gas Set Respiration Rate 12 b/min Blood Gas Modality Vent - ac FiO2 21.0 mmHg/% Blood Gas Tidal Volume 350 mL Blood Gas PEEP 5 cm H2O Test 12/16/24 14:33 Glucometer 130 mg/dl (70-104) Problem\Assessment\Plan Additional Plan Impressions 1. Hypoxic respiratory failure currently on vent via tracheostomy 2. History of asthma status 3. Hypernatremia 4. Hypokalemia 5. Multiple episodes of low blood pressures =>questionable adrenal insufficiency [ patient has had steroids before ]. Plan continue the current supports Lighten the sedation as now. May need stress dose steroids if hypotension persist Continue fluids and electrolyte replacement as now KEV SAMUEL MD Dec 17, 2024 01:13
[2024-12-17 02:06] LABS: BASOPHILS % (AUTO) 0.3 % (0-1); EOSINOPHILS # (AUTO) 0.1 X10'3 (0-0.9); EOSINOPHILS % (AUTO) 0.7 % (0-6); HEMATOCRIT 33.5 % (35.0-45.0); HEMOGLOBIN 10.9 g/dl (12.0-16.0); LYMPHOCYTES # (AUTO) 1.2 X10'3 (1.1-4.8); LYMPHOCYTES % (AUTO) 11.6 % (21-51); MEAN CORPUSCULAR HGB CONC 32.6 g/dL (33.0-36.5); MEAN CORPUSCULAR VOLUME 85.9 FL (78-98); MEAN PLATELET VOLUME 7.5 FL (7.4-10.4); MONOCYTES # (AUTO) 0.7 X10'3 (0-0.9); MONOCYTES % (AUTO) 6.3 % (2-12); NEUTROPHILS # (AUTO) 8.8 X10'3 (1.8-7.7); NEUTROPHILS % (AUTO) 81.1 % (42-75); PLATELET COUNT 183 X10'3 (140-440); RED CELL DISTRIBUTION WIDTH 14.8 % (11.5-14.5); WHITE BLOOD COUNT 10.8 X10'3 (4.5-11.0)
--- NOTE | 2024-12-17 02:17 | OPERATIVE REPORT ---
DATE OF SURGERY: 12/16/2024 DICTATING PHYSICIAN: Raj Ospina MD PREOPERATIVE DIAGNOSIS: Respiratory failure. POSTOPERATIVE DIAGNOSIS: Respiratory failure. PROCEDURE PERFORMED: Percutaneous tracheostomy with #8 Shiley. SURGEON: Raj Ospina MD COUNTER FORMER: None. ANESTHESIA: General/Dr. Elliott. DRAINS: None. INDICATIONS FOR OPERATION: A 24-year-old female with a history of severe asthma, previous respiratory failure, admitted with shortness of breath, requiring mechanical ventilation, failed extubation attempts. Taken to Surgery for tracheostomy. INTRAOPERATIVE FINDINGS: Trachea other than some . DESCRIPTION OF PROCEDURE: The patient was placed supine on the operating table. After induction of general anesthesia, neck was prepped and draped. Timeout was performed. Bronchoscope was advanced into the ET tube. The ET tube was withdrawn. incision was made in the base of the neck at the previous tracheostomy site. The needle was advanced into the trachea under bronchoscopic vision. Guidewire was then passed. Dilator was then placed. A #8 Shiley was then passed into the trachea without difficulty over the guidewire. The dilator was then withdrawn the circuit, the balloon inflated. Tracheostomy was secured to the skin with sutures of #1 silk. Dressing applied. The patient was transferred to the ICU in critical condition. Raj Ospina MD TID: [id number] RECEIPT: [id number] KB/YOK/BRET
[2024-12-17 02:22] LABS: ALANINE AMINOTRANSFERASE 21 U/L (12-78); ALBUMIN 2.4 G/DL (3.4-5.0); ALKALINE PHOSPHATASE 39 IU/L (46-116); ANION GAP 6 (8-16); ASPARTATE AMINO TRANSFERASE 20 U/L (10-37); BILIRUBIN,TOTAL 0.2 MG/DL (0.1-1.0); BLOOD UREA NITROGEN 11 MG/DL (7-18); BUN/CREATININE RATIO 39.3 (10.0-20.0); CALCIUM 7.9 MG/DL (8.5-10.1); CHLORIDE 111 MMOL/L (99-107); CREATININE 0.28 MG/DL (0.40-0.90); GLUCOSE 93 MG/DL (70-104); MAGNESIUM 2.2 MG/DL (1.5-2.4); PHOSPHORUS 5.2 MG/DL (2.3-4.5); POTASSIUM 4.3 MMOL/L (3.5-5.1); PREALBUMIN 43.1 MG/DL (19-36); SODIUM 145 MMOL/L (135-145); TOTAL CARBON DIOXIDE 28.3 MMOL/L (24-32); TOTAL PROTEIN 4.8 G/DL (6.4-8.2); TRIGLYCERIDES 108 MG/DL (20-135); eCRCL 301 ML/MIN; eGFR > 90 ML/MIN
[2024-12-17 03:10] LABS: BANDS% (MANUAL) 6 % (0-10); LYMPHOCYTES % (MANUAL) 12 % (21-51); METAMYLEOCYTES% (MANUAL) 1 % (0-0); MONOCYTES % (MANUAL) 4 % (2-12); NEUTROPHILS % (MANUAL) 77 % (42-75); PLATELET ESTIMATE NORMAL; TOTAL CELLS COUNTED 100
[2024-12-17 03:53] LABS: ABG BASE EXCESS 0.2 mmol/L (-2.0-3.0); ABG HCO3 24.2 mmol/L (21.0-28.0); ABG OXYGEN SATURATION 98.6 % (94.0-98.0); ABG PCO2 (T) 37.2 mmHg (32.0-45.0); ABG PH (T) 7.432 (7.350-7.450); ABG PO2 (T) 125.9 mmHg (83.0-108.0); ALLEN'S TEST POSITIVE; FCOHb 0.2 % (0.5-1.5); FHHb 1.4 % (0.0-5.0); FMetHb 0.3 % (0.0-1.5); FO2Hb 98.1 % (94.0-98.0); MODE VENT - AC; PATIENT TEMPERATURE 37.1; PEEP 5 cm H2O; RESPIRATORY RATE 12 b/min; TIDAL VOLUME 350 mL; TOTAL HEMOGLOBIN 11.8 G/dl (12.0-16.0)
--- NOTE | 2024-12-17 06:11 | CONSULTATION ---
DATE OF CONSULTATION: 12/15/2024 DICTATING PHYSICIAN: Raj Ospina MD REASON FOR CONSULTATION: Evaluation of possible percutaneous tracheostomy. HISTORY OF PRESENT ILLNESS: The patient is a 24-year-old female with history of asthma, who was admitted on 12/06/2024, with complaints of shortness of breath. The patient on 12/08/2024. Ultimately intubated. The patient reportedly failed extubation attempts. Evaluation of tracheostomy is now requested. The patient is unable to additional history. The patient has a history of asthma, possible vocal cord dysfunction, had a previous tracheostomy placed, details of which are unclear. PAST MEDICAL HISTORY: Significant for asthma. PAST SURGICAL HISTORY: Tracheostomy. HOME MEDICATIONS: The patient is on prednisone, metoprolol, supplements, variety of inhalers. ALLERGIES: None. SOCIAL HISTORY: Never smoker. REVIEW OF SYSTEMS: Unobtainable. PHYSICAL EXAMINATION: GENERAL: Well-nourished female, currently intubated, sedated. VITAL SIGNS: Unremarkable. HEART: Regular rate and rhythm. LUNGS: Clear to auscultation. ABDOMEN: Benign. IMAGING STUDIES: Chest x-ray from 12/15, essentially unremarkable. CT of the neck shows just endotracheal stenosis. CT of the chest, small effusions, otherwise unremarkable. IMPRESSION: * Recurrent respiratory failure. * History of asthma. RECOMMENDATIONS: Percutaneous tracheostomy. Raj Ospina MD TID: [id number] RECEIPT: [id number] KB/HAILEY/FELTON
--- NOTE | 2024-12-17 06:17 | PROGRESS NOTE ---
Progress Note Dictate Providers to CC ~ Progress Note: S/P Tracheostomy yesterday Central Line/PICC still needed: N\A Sin Indications Met/Not Met: F/C Indications Met Antibiotic Ordered?: No Subjective Subjective Comfortable Objective Vitals Vital Signs Date Time Temp Pulse Resp B/P (MAP) Pulse Ox O2 Delivery O2 Flow Rate FiO2 12/17/24 05:14 80 12 98 25 12/17/24 05:00 97.0 97/65 (76) Mechanical Ventilator 12/16/24 20:00 0.0 Lab Results: 12/17/24 0143 12/17/24 0143 Objective Heart: S1-2 reg Lungs: Clear Abd: Soft, non-tender, BS (+) Ext: No edema Neuro: Sedated Problem\Assessment\Plan Additional Plan 1-Acute Hypoxemic Resp Failure -Weaning trials 2-Asthma -Taper off steroids 3-Psych Disorder -Continue current tx Alysa Montague Sepsis Screening Reassessment Date: Dec 17, 2024 IAM MONTAGUE MD Dec 17, 2024 06:17
[2024-12-17] MEDS: predniSONE 5mg/5ml UD oral solution PO SCH (07:35)
--- NOTE | 2024-12-17 07:49 | RADIOLOGY REPORT ---
CHEST RADIOGRAPH Indication: ET Tube PLacement Technique: Single frontal view of the chest was obtained Comparison: DI CHEST,SINGLE VIEW on DOS: 12/16/24, DI CHEST,SINGLE VIEW on DOS: 12/16/24, DI CHEST,SING LE VIEW on DOS: 12/15/24 FINDINGS: Lines and Tubes: Tracheostomy tube is unchanged. Enteric tube terminates in the stomach. Lungs: No focal consolidation. Pleura: No effusion. No pneumothorax. Cardiomediastinal contours: Unremarkable Bones: No acute osseous abnormality. IMPRESSION: 1. Tracheostomy tube is unchanged. Enteric tube terminates in the stomach. 2. No acute cardiopulmonary process.
[2024-12-17] MEDS: propofol 1000mg/100ml bottle 100 ML IV SCH (09:44)
--- NOTE | 2024-12-17 10:46 | PROGRESS NOTE ---
Daily Progress Note Providers to CC ~ Antibiotic Timeout Antibiotic Ordered?: No Subjective Patient seen at bedside in ICU. Tracheostomy yesterday, vented. Vss, labs unremarkable. 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 Musculoskeletal: No paraspinal muscle tenderness, no muscle spasm Skin: Warm and intact Problem\Assessment\Plan Problems/Diagnosis: (1) Asthma exacerbation # Acute asthma exacerbation # Vocal cord dysfunction syndrome # Acute hypoxic respiratory failure # Community-acquired pneumonia- POA # Lactic acidosis 2/2 severe hypoxemia The patient was intubated and transferred to the ICU on the morning of 12/08/2024 On IV Rocephin and IV azithromycin On IV Solu-Medrol Albuterol PRN nebs both standard neb and continuous neb is available Scheduled DuoNeb 12/09 the patient is on fentanyl, propofol, Nimbex 12/10 attempts to turned down sedation and extubate the patient was unsuccessful today and Effexor was started as well as topiramate and gabapentin 12/11 the patient was extubated and then reintubated this evening since the patient went into respiratory distress 12/12 Dr hudson performed a bronchoscopy that was unremarkable the patient remains sedated and intubated on a ventilator 12/13 Dr Hudson spoke to Dr. Ospina we will obtain a tracheostomy as per Irlanda the patient's RN 12/14 remains intubated and sedated waiting for a tracheostomy 12/15 trach planned for tomorrow 12/16 trach today 12/17 pending LTAC # Encephalopathy Telemedicine neurology Dr. Servin recommended a seizure workup EEG demonstrates general encephalopathy MRI of the head is recommended # Hypokalemia -Potassium replacement protocol DVT/VTE prophylaxis: heparin Code status: Full code Disposition: LTAC Date of Service: Dec 17, 2024 Billing Provider: OVIDIO KHAN Common Visit Codes: [id number] INP/OBS CARE(HIGH) Problem Qualifiers (1) Asthma exacerbation: Qualified Codes: J45.901 - Unspecified asthma with (acute) exacerbation OVIDIO KHAN Dec 17, 2024 10:45
[2024-12-17] MEDS: quetiapine 100mg tablet OGT SCH (20:00)
[2024-12-17] MEDS: clonazePAM 1mg tablet OGT SCH (20:01)
[2024-12-18] VITALS (47 sets, daily range): BP systolic 76–116; BP diastolic 38–79; PULSE 91–130; RESP 11–32; O2SAT 91–100
[2024-12-18 06:08] LABS: BASOPHILS % (AUTO) 0.1 % (0-1); EOSINOPHILS % (AUTO) 0.2 % (0-6); HEMATOCRIT 32.4 % (35.0-45.0); HEMOGLOBIN 10.8 g/dl (12.0-16.0); LYMPHOCYTES # (AUTO) 1.4 X10'3 (1.1-4.8); LYMPHOCYTES % (AUTO) 11.1 % (21-51); MEAN CORPUSCULAR HEMOGLOBIN 28.2 PG (27.0-31.0); MEAN CORPUSCULAR HGB CONC 33.3 g/dL (33.0-36.5); MEAN CORPUSCULAR VOLUME 84.7 FL (78-98); MEAN PLATELET VOLUME 7.2 FL (7.4-10.4); MONOCYTES # (AUTO) 0.6 X10'3 (0-0.9); MONOCYTES % (AUTO) 4.9 % (2-12); NEUTROPHILS # (AUTO) 10.2 X10'3 (1.8-7.7); NEUTROPHILS % (AUTO) 83.7 % (42-75); PLATELET COUNT 222 X10'3 (140-440); RED BLOOD COUNT 3.83 X10'6 (4.20-5.60); RED CELL DISTRIBUTION WIDTH 14.7 % (11.5-14.5); WHITE BLOOD COUNT 12.2 X10'3 (4.5-11.0)
[2024-12-18 06:26] LABS: ALANINE AMINOTRANSFERASE 29 U/L (12-78); ALBUMIN 2.7 G/DL (3.4-5.0); ALKALINE PHOSPHATASE 41 IU/L (46-116); ANION GAP 10 (8-16); ASPARTATE AMINO TRANSFERASE 26 U/L (10-37); BILIRUBIN,TOTAL 0.3 MG/DL (0.1-1.0); BLOOD UREA NITROGEN 16 MG/DL (7-18); BUN/CREATININE RATIO 33.3 (10.0-20.0); CHLORIDE 103 MMOL/L (99-107); CREATININE 0.48 MG/DL (0.40-0.90); GLUCOSE 110 MG/DL (70-104); MAGNESIUM 2.2 MG/DL (1.5-2.4); PHOSPHORUS 5.6 MG/DL (2.3-4.5); SODIUM 141 MMOL/L (135-145); TOTAL CARBON DIOXIDE 27.9 MMOL/L (24-32); TOTAL PROTEIN 5.5 G/DL (6.4-8.2); eCRCL 176 ML/MIN; eGFR > 90 ML/MIN
[2024-12-18 06:33] LABS: POTASSIUM 2.9 MMOL/L (3.5-5.1)
--- NOTE | 2024-12-18 06:34 | RADIOLOGY REPORT ---
CHEST RADIOGRAPH Indication: ET Tube PLacement Technique: Single frontal view of the chest was obtained Comparison: DI CHEST,SINGLE VIEW on DOS: 12/17/24, DI CHEST FINDINGS: Lines and Tubes: Tracheostomy tube is unchanged. The enteric tube is shallow position with the tip te rminating in the region of the distal esophagus. Lungs: No focal consolidation. Pleura: No effusion. No pneumothorax. Cardiomediastinal contours: Unremarkable Bones: No acute osseous abnormality. IMPRESSION: 1. Enteric tube shallow in position with tip terminating in the region of the distal esophagus. Adva ncement by approximately 16 cm recommended.
[2024-12-18] MEDS: ringers solution, lacted 1,000 ML IV ONE ×3 (06:35→14:00)
--- NOTE | 2024-12-18 06:38 | PROGRESS NOTE ---
Progress Note Dictate Providers to CC ~ Progress Note: No new acute issues overnight Central Line/PICC still needed: Yes Sin Indications Met/Not Met: F/C Indications Met Antibiotic Ordered?: No Subjective Subjective Comfortable Objective Vitals Vital Signs Date Time Temp Pulse Resp B/P (MAP) Pulse Ox O2 Delivery O2 Flow Rate FiO2 12/18/24 05:14 100 12 96 25 12/18/24 05:00 82/47 (59) Mechanical Ventilator 12/18/24 04:00 100.0 12/18/24 03:41 25.0 Lab Results: 12/17/24 0143 12/18/24 0505 Objective Heart: S1-2 reg Lungs: Clear Abd: Soft, non-tender, BS (+) Ext: No edema Neuro: Sedated Problem\Assessment\Plan Additional Plan 1-Acute Hypoxemic Resp Failure -Weaning trials 2-Asthma -Off steroids 3-Psych Issues -Continue current iftikhar Montague CC time 35min Sepsis Screening Reassessment Date: Dec 18, 2024 IAM MONTAGUE MD Dec 18, 2024 06:38
[2024-12-18] MEDS: FENTANYL 1000MCG/NS 100 ML BAG /PF IV SCH (07:00)
[2024-12-18 07:26] LABS: TOTAL CELLS COUNTED 100
[2024-12-18 07:30] LABS: BANDS% (MANUAL) 1 % (0-10); BASOPHILS % (MANUAL) 0 % (0-1); EOSINOPHILS % (MANUAL) 0 % (0-6); LYMPHOCYTES % (MANUAL) 13 % (21-51); METAMYLEOCYTES% (MANUAL) 1 % (0-0); MONOCYTES % (MANUAL) 5 % (2-12); NEUTROPHILS % (MANUAL) 80 % (42-75)
[2024-12-18 07:31] LABS: PLATELET ESTIMATE NORMAL
[2024-12-18] MEDS: topiramate 25mg tablet OGT SCH (08:00)
[2024-12-18] MEDS: venlafaxine 37.5mg tablet OGT SCH (09:17)
[2024-12-18] MEDS: POTASSIUM CHLORIDE 20 MEQ/15 ML oral solution OGT PRN (09:24)
[2024-12-18] MEDS: COMMUNICATION ORDER 1 EA MISC MC ONE (15:06)
[2024-12-18] MEDS: ondansetron/PF 4mg/2ml inj IV PRN (17:05)
--- NOTE | 2024-12-18 17:58 | PROGRESS NOTE ---
Daily Progress Note Providers to CC ~ Antibiotic Timeout Antibiotic Ordered?: No Subjective Patient seen at bedside in ICU. Trach, vented. Vss, hypokelmia received potassium supplement. 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 Musculoskeletal: No paraspinal muscle tenderness, no muscle spasm Skin: Warm and intact Problem\Assessment\Plan Problems/Diagnosis: (1) Asthma exacerbation # Acute asthma exacerbation # Vocal cord dysfunction syndrome # Acute hypoxic respiratory failure # Community-acquired pneumonia- POA # Lactic acidosis 2/2 severe hypoxemia The patient was intubated and transferred to the ICU on the morning of 12/08/2024 On IV Rocephin and IV azithromycin On IV Solu-Medrol Albuterol PRN nebs both standard neb and continuous neb is available Scheduled DuoNeb 12/09 the patient is on fentanyl, propofol, Nimbex 12/10 attempts to turned down sedation and extubate the patient was unsuccessful today and Effexor was started as well as topiramate and gabapentin 12/11 the patient was extubated and then reintubated this evening since the patient went into respiratory distress 12/12 Dr hudson performed a bronchoscopy that was unremarkable the patient remains sedated and intubated on a ventilator 12/13 Dr Hudson spoke to Dr. Ospina we will obtain a tracheostomy as per Irlanda the patient's RN 12/14 remains intubated and sedated waiting for a tracheostomy 12/15 trach planned for tomorrow 12/16 trach today 12/17 pending LTAC # Encephalopathy Telemedicine neurology Dr. Servin recommended a seizure workup EEG demonstrates general encephalopathy MRI of the head is recommended # Hypokalemia -Potassium replacement protocol DVT/VTE prophylaxis: heparin Code status: Full code Disposition: LTAC Date of Service: Dec 18, 2024 Billing Provider: OVIDIO KHAN Common Visit Codes: [id number] INP/OBS CARE(HIGH) Problem Qualifiers (1) Asthma exacerbation: Qualified Codes: J45.901 - Unspecified asthma with (acute) exacerbation OVIDIO KHAN Dec 18, 2024 17:58
[2024-12-18] MEDS: ringers solution, lactated 500ml IV solution IV ONE (22:54)
[2024-12-19] VITALS (49 sets, daily range): BP systolic 78–120; BP diastolic 41–70; PULSE 96–143; RESP 11–18; O2SAT 93–100
[2024-12-19 02:28] LABS: ABG BASE EXCESS 0.1 mmol/L (-2.0-3.0); ABG HCO3 23.1 mmol/L (21.0-28.0); ABG OXYGEN SATURATION 97.6 % (94.0-98.0); ABG PCO2 (T) 31.3 mmHg (32.0-45.0); ABG PH (T) 7.484 (7.350-7.450); ALLEN'S TEST Modified; FCOHb 0.4 % (0.5-1.5); FHHb 2.4 % (0.0-5.0); FMetHb 0.3 % (0.0-1.5); FO2Hb 96.9 % (94.0-98.0); MODE VENT - PRVC; PATIENT TEMPERATURE 36.6; PEEP 5 cm H2O; RESPIRATORY RATE 12 b/min; TIDAL VOLUME 350 mL; TOTAL HEMOGLOBIN 11.2 G/dl (12.0-16.0)
[2024-12-19 05:29] LABS: BASOPHILS % (AUTO) 0.2 % (0-1); EOSINOPHILS % (AUTO) 0.3 % (0-6); HEMATOCRIT 32.3 % (35.0-45.0); HEMOGLOBIN 10.8 g/dl (12.0-16.0); LYMPHOCYTES # (AUTO) 1.4 X10'3 (1.1-4.8); LYMPHOCYTES % (AUTO) 13.3 % (21-51); MEAN CORPUSCULAR HEMOGLOBIN 28.2 PG (27.0-31.0); MEAN CORPUSCULAR HGB CONC 33.4 g/dL (33.0-36.5); MEAN CORPUSCULAR VOLUME 84.3 FL (78-98); MEAN PLATELET VOLUME 7.6 FL (7.4-10.4); MONOCYTES # (AUTO) 0.6 X10'3 (0-0.9); MONOCYTES % (AUTO) 5.3 % (2-12); NEUTROPHILS # (AUTO) 8.4 X10'3 (1.8-7.7); NEUTROPHILS % (AUTO) 80.9 % (42-75); PLATELET COUNT 216 X10'3 (140-440); RED BLOOD COUNT 3.83 X10'6 (4.20-5.60); RED CELL DISTRIBUTION WIDTH 15.1 % (11.5-14.5); WHITE BLOOD COUNT 10.4 X10'3 (4.5-11.0)
[2024-12-19 05:44] LABS: ALBUMIN 2.6 G/DL (3.4-5.0); ALBUMIN/GLOBULIN RATIO 0.9 (1.1-1.5); ALKALINE PHOSPHATASE 49 IU/L (46-116); ANION GAP 8 (8-16); ASPARTATE AMINO TRANSFERASE 27 U/L (10-37); BILIRUBIN,TOTAL 0.3 MG/DL (0.1-1.0); BLOOD UREA NITROGEN 8 MG/DL (7-18); BUN/CREATININE RATIO 17.4 (10.0-20.0); CALCIUM 8.6 MG/DL (8.5-10.1); CHLORIDE 107 MMOL/L (99-107); CREATININE 0.46 MG/DL (0.40-0.90); GLUCOSE 120 MG/DL (70-104); MAGNESIUM 2.2 MG/DL (1.5-2.4); POTASSIUM 3.5 MMOL/L (3.5-5.1); SODIUM 142 MMOL/L (135-145); TOTAL CARBON DIOXIDE 27.3 MMOL/L (24-32); TOTAL PROTEIN 5.6 G/DL (6.4-8.2); TRIGLYCERIDES 108 MG/DL (20-135); eCRCL 183 ML/MIN; eGFR > 90 ML/MIN
[2024-12-19 05:45] LABS: ALANINE AMINOTRANSFERASE 24 U/L (12-78)
--- NOTE | 2024-12-19 06:36 | PROGRESS NOTE ---
Progress Note Dictate Providers to CC ~ Progress Note: No new acute issues overnight Central Line/PICC still needed: N\A Sin Indications Met/Not Met: F/C Indications Met Antibiotic Ordered?: No Subjective Subjective Comfortable Objective Vitals Vital Signs Date Time Temp Pulse Resp B/P (MAP) Pulse Ox O2 Delivery O2 Flow Rate FiO2 12/19/24 06:00 97.9 105 12 95/52 (66) 98 Mechanical Ventilator 25 12/18/24 20:00 0.0 Lab Results: 12/19/24 0427 12/19/24 0427 Objective Heart: S1-2 reg Lungs: Clear Abd: Soft, non-tender, BS (+) Ext: No edema Neuro: awake Problem\Assessment\Plan Additional Plan 1-Acute Hypoxemic Resp Failure -Weaning trials 2-Agitation -Wean off Precedex 3-Psych Disorder -Continue current tx 4-Asthma -Off steroids -Bronchodilators q6h A Clari Sepsis Screening Reassessment Date: Dec 19, 2024 IAM MARTIN MD Dec 19, 2024 06:36
[2024-12-19] MEDS: morphine 4 MG/ML inj SYRINge ONE (11:38)
--- NOTE | 2024-12-19 13:31 | PROGRESS NOTE ---
Daily Progress Note Providers to CC ~ Sin-Non Protocol Sin Indications Met/Not Met: F/C Indications Met Antibiotic Timeout Antibiotic Ordered?: No Subjective Patient seen at bedside in ICU. Trach, vented. Continued on current treatment. 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 Musculoskeletal: No paraspinal muscle tenderness, no muscle spasm Skin: Warm and intact Problem\Assessment\Plan Problems/Diagnosis: (1) Asthma exacerbation # Acute asthma exacerbation # Vocal cord dysfunction syndrome # Acute hypoxic respiratory failure # Community-acquired pneumonia- POA # Lactic acidosis 2/2 severe hypoxemia The patient was intubated and transferred to the ICU on the morning of 12/08/2024 On IV Rocephin and IV azithromycin On IV Solu-Medrol Albuterol PRN nebs both standard neb and continuous neb is available Scheduled DuoNeb 12/09 the patient is on fentanyl, propofol, Nimbex 12/10 attempts to turned down sedation and extubate the patient was unsuccessful today and Effexor was started as well as topiramate and gabapentin 12/11 the patient was extubated and then reintubated this evening since the patient went into respiratory distress 12/12 Dr hudson performed a bronchoscopy that was unremarkable the patient remains sedated and intubated on a ventilator 12/13 Dr Hudson spoke to Dr. Ospina we will obtain a tracheostomy as per Irlanda the patient's RN 12/14 remains intubated and sedated waiting for a tracheostomy 12/15 trach planned for tomorrow 12/16 trach today 12/17 pending LTAC # Encephalopathy Telemedicine neurology Dr. Servin recommended a seizure workup EEG demonstrates general encephalopathy MRI of the head is recommended # Hypokalemia -Potassium replacement protocol DVT/VTE prophylaxis: heparin Code status: Full code Disposition: LTAC Date of Service: Dec 19, 2024 Billing Provider: OVIDIO KHAN Common Visit Codes: [id number] INP/OBS CARE(HIGH) Problem Qualifiers (1) Asthma exacerbation: Qualified Codes: J45.901 - Unspecified asthma with (acute) exacerbation OVIDIO KHAN Dec 19, 2024 13:31
[2024-12-19] MEDS: morphine 4 MG/ML inj SYRINge IV PRN (17:38)
[2024-12-20] VITALS (49 sets, daily range): BP systolic 88–126; BP diastolic 47–80; PULSE 97–127; RESP 9–23; O2SAT 95–99
[2024-12-20 06:19] LABS: BASOPHILS % (AUTO) 0.2 % (0-1); EOSINOPHILS % (AUTO) 0.3 % (0-6); HEMATOCRIT 35.3 % (35.0-45.0); HEMOGLOBIN 11.6 g/dl (12.0-16.0); LYMPHOCYTES # (AUTO) 1.1 X10'3 (1.1-4.8); LYMPHOCYTES % (AUTO) 10.9 % (21-51); MEAN CORPUSCULAR HGB CONC 32.9 g/dL (33.0-36.5); MEAN CORPUSCULAR VOLUME 85.2 FL (78-98); MEAN PLATELET VOLUME 7.6 FL (7.4-10.4); MONOCYTES # (AUTO) 0.7 X10'3 (0-0.9); MONOCYTES % (AUTO) 6.9 % (2-12); NEUTROPHILS # (AUTO) 8.6 X10'3 (1.8-7.7); NEUTROPHILS % (AUTO) 81.7 % (42-75); PLATELET COUNT 236 X10'3 (140-440); RED BLOOD COUNT 4.14 X10'6 (4.20-5.60); RED CELL DISTRIBUTION WIDTH 15.5 % (11.5-14.5); WHITE BLOOD COUNT 10.5 X10'3 (4.5-11.0)
--- NOTE | 2024-12-20 06:24 | PROGRESS NOTE ---
Progress Note Dictate Providers to CC ~ Progress Note: No new acute issues overnight Central Line/PICC still needed: N\A Sin Indications Met/Not Met: F/C Indications Met Antibiotic Ordered?: No Subjective Subjective Heart: S1-2 reg Lungs: Clear Abd: soft, non-tender, BS (+) Ext: No edema Neuro: awake Objective Vitals Vital Signs Date Time Temp Pulse Resp B/P (MAP) Pulse Ox O2 Delivery O2 Flow Rate FiO2 12/20/24 06:00 98.1 107 12 112/69 (83) 97 Mechanical Ventilator 12/18/24 20:00 0.0 Lab Results: 12/20/24 0502 12/19/24 0427 Objective Heart: S1-2 reg Lungs: Clear Abd: Soft, non-tender, BS (+) Ext: No edema Neuro: awake Problem\Assessment\Plan Additional Plan 1-VDRF -Weaning trials 2-Asthma -Bronchodilators as needed 3-Psych Disorder -Continue current tx Alysa Montague Sepsis Screening Reassessment Date: Dec 20, 2024 IAM MONTAGEU MD Dec 20, 2024 06:24
[2024-12-20 06:40] LABS: ALANINE AMINOTRANSFERASE 36 U/L (12-78); ALBUMIN/GLOBULIN RATIO 0.8 (1.1-1.5); ALKALINE PHOSPHATASE 65 IU/L (46-116); ANION GAP 11 (8-16); ASPARTATE AMINO TRANSFERASE 30 U/L (10-37); BILIRUBIN,TOTAL 0.2 MG/DL (0.1-1.0); BLOOD UREA NITROGEN 16 MG/DL (7-18); BUN/CREATININE RATIO 24.6 (10.0-20.0); CALCIUM 9.2 MG/DL (8.5-10.1); CHLORIDE 106 MMOL/L (99-107); CREATININE 0.65 MG/DL (0.40-0.90); GLUCOSE 112 MG/DL (70-104); MAGNESIUM 2.1 MG/DL (1.5-2.4); PHOSPHORUS 4.5 MG/DL (2.3-4.5); POTASSIUM 3.9 MMOL/L (3.5-5.1); SODIUM 144 MMOL/L (135-145); TOTAL CARBON DIOXIDE 26.9 MMOL/L (24-32); TOTAL PROTEIN 6.6 G/DL (6.4-8.2); TRIGLYCERIDES 64 MG/DL (20-135); eCRCL 130 ML/MIN; eGFR > 90 ML/MIN
--- NOTE | 2024-12-20 09:54 | PROGRESS NOTE ---
Daily Progress Note Providers to CC ~ Antibiotic Timeout Antibiotic Ordered?: No Subjective Patient seen at bedside in ICU. Trach, vented. Continued on current treatment. 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 Musculoskeletal: No paraspinal muscle tenderness, no muscle spasm Skin: Warm and intact Problem\Assessment\Plan Problems/Diagnosis: (1) Asthma exacerbation # Acute asthma exacerbation # Vocal cord dysfunction syndrome # Acute hypoxic respiratory failure # Community-acquired pneumonia- POA # Lactic acidosis 2/2 severe hypoxemia The patient was intubated and transferred to the ICU on the morning of 12/08/2024 On IV Rocephin and IV azithromycin On IV Solu-Medrol Albuterol PRN nebs both standard neb and continuous neb is available Scheduled DuoNeb 12/09 the patient is on fentanyl, propofol, Nimbex 12/10 attempts to turned down sedation and extubate the patient was unsuccessful today and Effexor was started as well as topiramate and gabapentin 12/11 the patient was extubated and then reintubated this evening since the patient went into respiratory distress 12/12 Dr hudson performed a bronchoscopy that was unremarkable the patient remains sedated and intubated on a ventilator 12/13 Dr Hudson spoke to Dr. Ospina we will obtain a tracheostomy as per Irlanda the patient's RN 12/14 remains intubated and sedated waiting for a tracheostomy 12/15 trach planned for tomorrow 12/16 trach today 12/17 pending LTAC # Encephalopathy Telemedicine neurology Dr. Servin recommended a seizure workup EEG demonstrates general encephalopathy MRI of the head is recommended # Hypokalemia -Potassium replacement protocol DVT/VTE prophylaxis: heparin Code status: Full code Disposition: LTAC Date of Service: Dec 20, 2024 Billing Provider: OVIDIO KHAN Common Visit Codes: [id number] INP/OBS CARE(HIGH) Problem Qualifiers (1) Asthma exacerbation: Qualified Codes: J45.901 - Unspecified asthma with (acute) exacerbation OVIDIO KHAN Dec 20, 2024 09:54
[2024-12-20] MEDS: metoclopramide 5 mg/ml inj IV PRN (23:39)
[2024-12-21] VITALS (45 sets, daily range): BP systolic 85–115; BP diastolic 44–72; PULSE 83–123; RESP 8–30; O2SAT 95–100
[2024-12-21 06:02] LABS: BASOPHILS % (AUTO) 0.4 % (0-1); EOSINOPHILS % (AUTO) 0.8 % (0-6); HEMATOCRIT 32.8 % (35.0-45.0); HEMOGLOBIN 10.8 g/dl (12.0-16.0); LYMPHOCYTES # (AUTO) 1.4 X10'3 (1.1-4.8); LYMPHOCYTES % (AUTO) 25.9 % (21-51); MEAN CORPUSCULAR HEMOGLOBIN 28.1 PG (27.0-31.0); MEAN CORPUSCULAR HGB CONC 33.1 g/dL (33.0-36.5); MEAN CORPUSCULAR VOLUME 84.9 FL (78-98); MEAN PLATELET VOLUME 7.8 FL (7.4-10.4); MONOCYTES # (AUTO) 0.4 X10'3 (0-0.9); MONOCYTES % (AUTO) 8.1 % (2-12); NEUTROPHILS # (AUTO) 3.4 X10'3 (1.8-7.7); NEUTROPHILS % (AUTO) 64.8 % (42-75); PLATELET COUNT 222 X10'3 (140-440); RED BLOOD COUNT 3.86 X10'6 (4.20-5.60); RED CELL DISTRIBUTION WIDTH 15.2 % (11.5-14.5); WHITE BLOOD COUNT 5.3 X10'3 (4.5-11.0)
--- NOTE | 2024-12-21 06:34 | PROGRESS NOTE ---
Progress Note Dictate Providers to CC ~ Progress Note: No new acute issues. Failed weaning trials yesterday Central Line/PICC still needed: N\A Sin Indications Met/Not Met: F/C Indications Met Antibiotic Ordered?: No Subjective Subjective Comfortable Objective Vitals Vital Signs Date Time Temp Pulse Resp B/P (MAP) Pulse Ox O2 Delivery O2 Flow Rate FiO2 12/21/24 05:54 97.7 88 13 99/57 (71) 98 Mechanical Ventilator 12/18/24 20:00 0.0 Lab Results: 12/21/24 0419 12/20/24 0502 Objective Heart: S1-2 reg Lungs: Clear Abd: Soft, non-tender, BS (+) Ext: No edema Neuro: awake Problem\Assessment\Plan Additional Plan 1-VDRF -Weaning trials 2-Asthma -Bronchodilators as needed 3-Psych disorder -Continue current tx Alysa Montague Sepsis Screening Reassessment Date: Dec 21, 2024 IAM MONTAGUE MD Dec 21, 2024 06:34
[2024-12-21 06:36] LABS: ALANINE AMINOTRANSFERASE 47 U/L (12-78); ALBUMIN/GLOBULIN RATIO 0.8 (1.1-1.5); ALKALINE PHOSPHATASE 59 IU/L (46-116); ANION GAP 10 (8-16); ASPARTATE AMINO TRANSFERASE 33 U/L (10-37); BILIRUBIN,TOTAL 0.4 MG/DL (0.1-1.0); BLOOD UREA NITROGEN 15 MG/DL (7-18); BUN/CREATININE RATIO 22.4 (10.0-20.0); CHLORIDE 107 MMOL/L (99-107); CREATININE 0.67 MG/DL (0.40-0.90); GLUCOSE 112 MG/DL (70-104); PHOSPHORUS 4.1 MG/DL (2.3-4.5); POTASSIUM 3.3 MMOL/L (3.5-5.1); PREALBUMIN 27.5 MG/DL (19-36); SODIUM 144 MMOL/L (135-145); TOTAL CARBON DIOXIDE 27.2 MMOL/L (24-32); TOTAL PROTEIN 6.6 G/DL (6.4-8.2); eCRCL 126 ML/MIN; eGFR > 90 ML/MIN
--- NOTE | 2024-12-21 09:21 | PROGRESS NOTE ---
Daily Progress Note Providers to CC ~ Antibiotic Timeout Antibiotic Ordered?: No Subjective Patient seen at bedside in ICU. Trach, vented. Weaning trials. Vss, labs unremarkable. 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 Musculoskeletal: No paraspinal muscle tenderness, no muscle spasm Skin: Warm and intact Problem\Assessment\Plan Problems/Diagnosis: (1) Asthma exacerbation # Acute asthma exacerbation # Vocal cord dysfunction syndrome # Acute hypoxic respiratory failure # Community-acquired pneumonia- POA # Lactic acidosis 2/2 severe hypoxemia The patient was intubated and transferred to the ICU on the morning of 12/08/2024 On IV Rocephin and IV azithromycin On IV Solu-Medrol Albuterol PRN nebs both standard neb and continuous neb is available Scheduled DuoNeb 12/09 the patient is on fentanyl, propofol, Nimbex 12/10 attempts to turned down sedation and extubate the patient was unsuccessful today and Effexor was started as well as topiramate and gabapentin 12/11 the patient was extubated and then reintubated this evening since the patient went into respiratory distress 12/12 Dr hudson performed a bronchoscopy that was unremarkable the patient remains sedated and intubated on a ventilator 12/13 Dr Hudson spoke to Dr. Ospina we will obtain a tracheostomy as per Irlanda the patient's RN 12/14 remains intubated and sedated waiting for a tracheostomy 12/15 trach planned for tomorrow 12/16 trach today 12/17 pending LTAC 12/21 weaning trials # Encephalopathy Telemedicine neurology Dr. Servin recommended a seizure workup EEG demonstrates general encephalopathy MRI of the head is recommended # Hypokalemia -Potassium replacement protocol DVT/VTE prophylaxis: heparin Code status: Full code Disposition: LTAC Date of Service: Dec 21, 2024 Billing Provider: OVIDIO KHAN Common Visit Codes: [id number] INP/OBS CARE(HIGH) Problem Qualifiers (1) Asthma exacerbation: Qualified Codes: J45.901 - Unspecified asthma with (acute) exacerbation OVIDIO KHAN Dec 21, 2024 09:20
[2024-12-22] VITALS (28 sets, daily range): BP systolic 91–116; BP diastolic 52–80; PULSE 18–131; RESP 11–27; TEMP 97.1–98.7; O2SAT 94–100
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
[2024-12-22 02:03] LABS: BASOPHILS % (AUTO) 0.8 % (0-1); EOSINOPHILS # (AUTO) 0.1 X10'3 (0-0.9); EOSINOPHILS % (AUTO) 1.2 % (0-6); HEMATOCRIT 33.5 % (35.0-45.0); LYMPHOCYTES # (AUTO) 1.2 X10'3 (1.1-4.8); LYMPHOCYTES % (AUTO) 23.2 % (21-51); MEAN CORPUSCULAR HEMOGLOBIN 28.3 PG (27.0-31.0); MEAN CORPUSCULAR VOLUME 85.9 FL (78-98); MONOCYTES # (AUTO) 0.5 X10'3 (0-0.9); MONOCYTES % (AUTO) 10.4 % (2-12); NEUTROPHILS # (AUTO) 3.4 X10'3 (1.8-7.7); NEUTROPHILS % (AUTO) 64.4 % (42-75); PLATELET COUNT 262 X10'3 (140-440); RED CELL DISTRIBUTION WIDTH 15.3 % (11.5-14.5); WHITE BLOOD COUNT 5.3 X10'3 (4.5-11.0)
[2024-12-22 02:14] LABS: ALANINE AMINOTRANSFERASE 49 U/L (12-78); ALBUMIN 2.9 G/DL (3.4-5.0); ALBUMIN/GLOBULIN RATIO 0.8 (1.1-1.5); ALKALINE PHOSPHATASE 57 IU/L (46-116); ANION GAP 8 (8-16); ASPARTATE AMINO TRANSFERASE 26 U/L (10-37); BILIRUBIN,TOTAL 0.3 MG/DL (0.1-1.0); BLOOD UREA NITROGEN 17 MG/DL (7-18); BUN/CREATININE RATIO 32.7 (10.0-20.0); CALCIUM 8.8 MG/DL (8.5-10.1); CHLORIDE 111 MMOL/L (99-107); CREATININE 0.52 MG/DL (0.40-0.90); GLUCOSE 107 MG/DL (70-104); MAGNESIUM 2.2 MG/DL (1.5-2.4); POTASSIUM 3.6 MMOL/L (3.5-5.1); SODIUM 148 MMOL/L (135-145); TOTAL CARBON DIOXIDE 28.8 MMOL/L (24-32); TOTAL PROTEIN 6.6 G/DL (6.4-8.2); eCRCL 162 ML/MIN; eGFR > 90 ML/MIN
--- NOTE | 2024-12-22 06:31 | PROGRESS NOTE ---
Progress Note Dictate Providers to CC ~ Progress Note: Off ventilator yesterday. Off Precedex Central Line/PICC still needed: No Sin Indications Met/Not Met: F/C Indications Not Met Antibiotic Ordered?: No Subjective Subjective Comfortable Objective Vitals Vital Signs Date Time Temp Pulse Resp B/P (MAP) Pulse Ox O2 Delivery O2 Flow Rate FiO2 12/22/24 05:58 97.5 104 18 103/54 (70) 98 Trach Collar 6.0 28 Lab Results: 12/22/24 0141 12/22/24 0141 Objective Heart: S1-2 reg Lungs: Clear Abd: Soft, non-tender, BS (+) Ext: No edema Neuro: awake Problem\Assessment\Plan Additional Plan 1-Asthma -Bronchodilators prn 2-S/P Tracheostomy -Passy-Dalton valve as tolerated while awake -Swallow eval 3-Psych Disorder -Continue current tx Anticipate transfer soon A Clari Sepsis Screening Reassessment Date: Dec 22, 2024 IAM MARTIN MD Dec 22, 2024 06:31
--- NOTE | 2024-12-22 18:43 | PROGRESS NOTE ---
Daily Progress Note Providers to CC No new complaint today, resting comfortably in the bed ~ Central Line/PICC still needed: No Sin-Non Protocol Sin Indications Met/Not Met: F/C Indications Not Met Antibiotic Timeout Antibiotic Ordered?: Yes MRSA Education MRSA Education Provided to pt: Yes Subjective As above Objective Vital Signs Date Time Temp Pulse Resp B/P (MAP) Pulse Ox O2 Delivery O2 Flow Rate FiO2 12/22/24 18:14 28 12/22/24 17:51 116 18 98 Room Air* 0 12/22/24 15:00 98.7 110/77 (88) Vital signs, stable ,afebrile. Pulse Oximetry reflects adequate oxygenation. General: well developed, well nourished. Awake , alert, and oriented x4, resting comfortably in the bed, in no acute distress . Skin: Warm, dry, no pallor, no rash or petechiae. HEENT: Atraumatic, normocephalic, EOMI, anicteric sclera B; pink conjunctiva; PERRLA, normal oropharynx, moist oral and nasal mucosa. Tympanic membrane , nose , throat clear. tracheostomy functional in place Neck: Trachea midline. Supple, full range of motion, no JVD, bruit , hepatojugular reflex , lymphadenopathy or masses, or other lesions Cardiac: Regular rhythm, regular rate no murmurs, rubs, or gallops. Normal S1 and S2, no S3 noticed. PMI is normal. Respiratory: Equal breath sounds bilaterally, no tachypnea; lungs clear to auscultation bilaterally, no wheezing ,rub or rales, or crackles. Chest wall is symmetric and without deformity. No signs of trauma. Chest wall is nontender. No signs of respiratory distress. Resonance is normal upon percussion bilaterally. Gastrointestinal: Abdomen symmetric, non-distended, soft, non-tender, normal bowel sounds x4 quadrant, normoactive, no hepatosplenomegaly , no masses , no bruit, no flank pain bilaterally. No voluntary guarding, rebound, or rigidity. No tenderness to percussion. No pulsatile masses. Equal femoral pulses. No Goldman's sign or McBurney point tenderness. Back; no CVA tenderness bilaterally, no deformities. Neck and back are without deformity as well. No tenderness noted on palpation of the spinous processes. Spinous processes are midline. Cervical, thoracic, and lumbar paraspinal muscles are not tender and are without spasm. Musculoskeletal: Extremities, normal range of motion, non-tender, muscle strength 5/5 x 4. Negative Homans signs bilaterally on lower extremity. Distal pulses full symmetrical, no clubbing, cyanosis , edema. Neurological: Speech is clear, alert, and oriented x 4. No motor or sensory deficit, deep tendon reflexes normal, cerebellar intact. Cranial nerves II-XII intact. Psych: Alert and or appropriate, normal affect. Vascular: Good distal pulses, which are equal x4; capillary refill less than 2 seconds. Lymphatic, no lymphadenopathy. Result Diagram: 12/22/24 01412/22/24 014 Problem\Assessment\Plan Problems/Diagnosis: (1) Asthma exacerbation # Acute asthma exacerbation # Vocal cord dysfunction syndrome # Acute hypoxic respiratory failure # Community-acquired pneumonia- POA # Lactic acidosis 2/2 severe hypoxemia The patient was intubated and transferred to the ICU on the morning of 12/08/2024 On IV Rocephin and IV azithromycin On IV Solu-Medrol Albuterol PRN nebs both standard neb and continuous neb is available Scheduled DuoNeb s/p tracheostomy, good recovery # Encephalopathy Telemedicine neurology Dr. Servin recommended a seizure workup EEG demonstrates general encephalopathy # Hypokalemia -Potassium replacement protocol DVT/VTE prophylaxis: heparin Code status: Full code Disposition: LTAC Sepsis Screening Reassessment Date: Dec 22, 2024 Date of Service: Dec 22, 2024 Billing Provider: OLGA WILLIAM MD Common Visit Codes: 54485-JSR/OBS SAME DATE (HIGH) Problem Qualifiers (1) Asthma exacerbation: Qualified Codes: J45.901 - Unspecified asthma with (acute) exacerbation OLGA WILLIAM MD Dec 22, 2024 18:43
[2024-12-22] MEDS: dextrose 5%-water 1,000 ML IV SCH (19:13)
[2024-12-22] MEDS: lactulose 20gm/30ml cup OGT SCH (19:27)
[2024-12-23] VITALS (21 sets, daily range): BP systolic 95–112; BP diastolic 57–83; PULSE 87–112; RESP 16–22; TEMP 97.5–98.2; O2SAT 95–99
[2024-12-23 05:57] LABS: HEMATOCRIT 32.7 % (35.0-45.0); HEMOGLOBIN 10.7 g/dl (12.0-16.0); MEAN CORPUSCULAR HEMOGLOBIN 27.8 PG (27.0-31.0); MEAN CORPUSCULAR HGB CONC 32.7 g/dL (33.0-36.5); PLATELET COUNT 276 X10'3 (140-440); RED BLOOD COUNT 3.84 X10'6 (4.20-5.60); WHITE BLOOD COUNT 5.8 X10'3 (4.5-11.0)
[2024-12-23 05:58] LABS: BASOPHILS % (AUTO) 0.5 % (0-1); EOSINOPHILS # (AUTO) 0.1 X10'3 (0-0.9); EOSINOPHILS % (AUTO) 1.3 % (0-6); LYMPHOCYTES # (AUTO) 1.3 X10'3 (1.1-4.8); LYMPHOCYTES % (AUTO) 21.7 % (21-51); MEAN PLATELET VOLUME 7.3 FL (7.4-10.4); MONOCYTES # (AUTO) 0.5 X10'3 (0-0.9); MONOCYTES % (AUTO) 8.1 % (2-12); NEUTROPHILS % (AUTO) 68.4 % (42-75)
[2024-12-23 06:07] LABS: ALANINE AMINOTRANSFERASE 47 U/L (12-78); ALBUMIN 2.9 G/DL (3.4-5.0); ALBUMIN/GLOBULIN RATIO 0.8 (1.1-1.5); ALKALINE PHOSPHATASE 56 IU/L (46-116); ANION GAP 11 (8-16); ASPARTATE AMINO TRANSFERASE 29 U/L (10-37); BILIRUBIN,TOTAL 0.3 MG/DL (0.1-1.0); BLOOD UREA NITROGEN 16 MG/DL (7-18); BUN/CREATININE RATIO 35.6 (10.0-20.0); CALCIUM 8.8 MG/DL (8.5-10.1); CHLORIDE 107 MMOL/L (99-107); CREATININE 0.45 MG/DL (0.40-0.90); GLUCOSE 121 MG/DL (70-104); PHOSPHORUS 4.8 MG/DL (2.3-4.5); POTASSIUM 3.3 MMOL/L (3.5-5.1); SODIUM 144 MMOL/L (135-145); TOTAL CARBON DIOXIDE 26.2 MMOL/L (24-32); TOTAL PROTEIN 6.5 G/DL (6.4-8.2); TRIGLYCERIDES 52 MG/DL (20-135); eCRCL 187 ML/MIN; eGFR > 90 ML/MIN
[2024-12-23] MEDS: ondansetron 4mg rapidly disintigrating tab OGT PRN (19:48)
--- NOTE | 2024-12-23 20:08 | PROGRESS NOTE ---
Daily Progress Note Providers to CC ~ chief complaint, mild shortness of breath Central Line/PICC still needed: No Sin-Non Protocol Sin Indications Met/Not Met: F/C Indications Not Met Antibiotic Timeout Antibiotic Ordered?: Yes MRSA Education MRSA Education Provided to pt: Yes Subjective As above Objective Vital Signs Date Time Temp Pulse Resp B/P (MAP) Pulse Ox O2 Delivery O2 Flow Rate FiO2 12/23/24 20:02 107 16 Cool Aerosol 6.0 28 Trach Collar 12/23/24 19:53 98 12/23/24 15:00 97.7 109/83 (92) Vital signs, stable ,afebrile. Pulse Oximetry reflects adequate oxygenation. General: well developed, well nourished. Awake , alert, and oriented x4, resting comfortably in the bed, in no acute distress . Skin: Warm, dry, no pallor, no rash or petechiae. HEENT: Atraumatic, normocephalic, EOMI, anicteric sclera B; pink conjunctiva; PERRLA, normal oropharynx, moist oral and nasal mucosa. Tympanic membrane , nose , throat clear. Neck: Trachea midline. Supple, full range of motion, no JVD, bruit , hepatojugular reflex , lymphadenopathy or masses, or other lesions Cardiac: Regular rhythm, regular rate no murmurs, rubs, or gallops. Normal S1 and S2, no S3 noticed. PMI is normal. Respiratory: Equal breath sounds bilaterally, no tachypnea; lungs clear to auscultation bilaterally, no wheezing ,rub or rales, or crackles. Chest wall is symmetric and without deformity. No signs of trauma. Chest wall is nontender. No signs of respiratory distress. Resonance is normal upon percussion bilaterally. Gastrointestinal: Abdomen symmetric, non-distended, soft, non-tender, normal bowel sounds x4 quadrant, normoactive, no hepatosplenomegaly , no masses , no bruit, no flank pain bilaterally. No voluntary guarding, rebound, or rigidity. No tenderness to percussion. No pulsatile masses. Equal femoral pulses. No Goldman's sign or McBurney point tenderness. Back; no CVA tenderness bilaterally, no deformities. Neck and back are without deformity as well. No tenderness noted on palpation of the spinous processes. Spinous processes are midline. Cervical, thoracic, and lumbar paraspinal muscles are not tender and are without spasm. Locally, tracheostomy in place functional Musculoskeletal: Extremities, normal range of motion, non-tender, muscle strength 5/5 x 4. Negative Homans signs bilaterally on lower extremity. Distal pulses full symmetrical, no clubbing, cyanosis , edema. Neurological: Speech is clear, alert, and oriented x 4. No motor or sensory deficit, deep tendon reflexes normal, cerebellar intact. Cranial nerves II-XII intact. Psych: Alert and or appropriate, normal affect. Vascular: Good distal pulses, which are equal x4; capillary refill less than 2 seconds. Lymphatic, no lymphadenopathy. Result Diagram: 12/23/2436 12/23/2430 Problem\Assessment\Plan Problems/Diagnosis: (1) Asthma exacerbation Assessment/plan # Acute asthma exacerbation # Vocal cord dysfunction syndrome # Acute hypoxic respiratory failure # Community-acquired pneumonia- POA # Lactic acidosis 2/2 severe hypoxemia The patient was intubated and transferred to the ICU on the morning of 12/08/2024 On IV Rocephin and IV azithromycin On IV Solu-Medrol Albuterol PRN nebs both standard neb and continuous neb is available Scheduled DuoNeb s/p tracheostomy, good recovery # Encephalopathy Telemedicine neurology Dr. Sevrin recommended a seizure workup EEG demonstrates general encephalopathy # Hypokalemia -Potassium replacement protocol DVT/VTE prophylaxis: heparin Code status: Full code Disposition: LTAC Sepsis Screening Reassessment Date: Dec 23, 2024 Date of Service: Dec 23, 2024 Billing Provider: OLGA WILLIAM MD Common Visit Codes: [id number] INP/OBS CARE(HIGH) Problem Qualifiers (1) Asthma exacerbation: Qualified Codes: J45.901 - Unspecified asthma with (acute) exacerbation OLGA WILLIAM MD Dec 23, 2024 20:08
--- NOTE | 2024-12-23 21:32 | RADIOLOGY REPORT ---
EXAM: CT CT CHEST History: opacities , shortness of breath Comparison Study: CT CT CHEST on DOS: 12/14/24 TECHNIQUE: Multidetector CT of the chest was performed. Imaging was performed without IV contrast. Ax ial, coronal, and sagittal multiplanar reformats were obtained from the axial data set by the technol pretty. Radiation Dose : CTDI vol 12.6 mGy, DLP 475.99 mGy*cm. Findings: Lungs: A tracheostomy tube is noted. There is redemonstration of small bilateral pleural effusions wi th associated atelectasis, not significantly changed compared to the prior study dated 12/14/2024. Th ere are scattered regions of atelectasis/scarring. There is slight interval increase in bilateral low er lobe opacities. Pleura: As above. Heart/Great vessels: Redemonstrated small pericardial effusion. The heart size is normal. Mediastinum: Unremarkable. Soft tissues/Bones: Unremarkable. Upper abdomen: A nasogastric tube is noted which extends to the duodenum and curves with tip within t he stomach. Impression: 1. Slight interval increase in bilateral lower opacities which might be for both the atelectasis or i nfectious /inflammatory process in the appropriate clinical setting. 2. Unchanged small bilateral pleural effusions. 3. Additional findings as detailed.
[2024-12-24] VITALS (14 sets, daily range): BP systolic 90–115; BP diastolic 57–81; PULSE 89–138; RESP 13–26; TEMP 97.1–97.8; O2SAT 96–100
--- NOTE | 2024-12-24 11:38 | PROGRESS NOTE ---
Daily Progress Note Providers to CC ~ patient had an episode of anxiety associated with threatening to leave AMA Central Line/PICC still needed: No Sin-Non Protocol Sin Indications Met/Not Met: F/C Indications Not Met Antibiotic Timeout Antibiotic Ordered?: Yes MRSA Education MRSA Education Provided to pt: Yes Subjective As above Objective Vital Signs Date Time Temp Pulse Resp B/P (MAP) Pulse Ox O2 Delivery O2 Flow Rate FiO2 12/24/24 07:40 102 16 Cool Aerosol 5.0 28 Trach Collar 12/24/24 07:39 98 12/24/24 02:00 97.8 107/77 (87) Vital signs, stable ,afebrile. Pulse Oximetry reflects adequate oxygenation on 5 L oxygen nasal cannula. General: well developed, well nourished. Awake , alert, and oriented x4, resting comfortably in the bed, in no acute distress . Skin: Warm, dry, no pallor, no rash or petechiae. HEENT: Atraumatic, normocephalic, EOMI, anicteric sclera B; pink conjunctiva; PERRLA, normal oropharynx, moist oral and nasal mucosa. Tympanic membrane , nose , throat clear. Neck: Trachea midline. Tracheostomy in place, functional, Supple, full range of motion, no JVD, bruit , hepatojugular reflex , lymphadenopathy or masses, or other lesions Cardiac: Regular rhythm, regular rate no murmurs, rubs, or gallops. Normal S1 and S2, no S3 noticed. PMI is normal. Respiratory: Equal breath sounds bilaterally, no tachypnea; lungs clear to auscultation bilaterally, no wheezing ,rub or rales, or crackles. Chest wall is symmetric and without deformity. No signs of trauma. Chest wall is nontender. No signs of respiratory distress. Resonance is normal upon percussion bilaterally. Gastrointestinal: Abdomen symmetric, non-distended, soft, non-tender, normal bowel sounds x4 quadrant, normoactive, no hepatosplenomegaly , no masses , no bruit, no flank pain bilaterally. No voluntary guarding, rebound, or rigidity. No tenderness to percussion. No pulsatile masses. Equal femoral pulses. No Goldman's sign or McBurney point tenderness. Back; no CVA tenderness bilaterally, no deformities. Neck and back are without deformity as well. No tenderness noted on palpation of the spinous processes. Spinous processes are midline. Cervical, thoracic, and lumbar paraspinal muscles are not tender and are without spasm. Musculoskeletal: Extremities, normal range of motion, non-tender, muscle strength 5/5 x 4. Negative Homans signs bilaterally on lower extremity. Distal pulses full symmetrical, no clubbing, cyanosis , edema. Neurological: Speech is clear, alert, and oriented x 4. No motor or sensory deficit, deep tendon reflexes normal, cerebellar intact. Cranial nerves II-XII intact. Psych: Alert and or appropriate, normal affect. Vascular: Good distal pulses, which are equal x4; capillary refill less than 2 seconds. Lymphatic, no lymphadenopathy. Result Diagram: 12/23/2436 12/23/24 0530 Problem\Assessment\Plan Problems/Diagnosis: (1) Asthma exacerbation Assessment/plan # Acute asthma exacerbation # Vocal cord dysfunction syndrome # Acute hypoxic respiratory failure # Community-acquired pneumonia- POA Levaquin IV # Lactic acidosis 2/2 severe hypoxemia, resolved The patient was intubated and transferred to the ICU on the morning of 12/08/2024 On IV Solu-Medrol Albuterol PRN nebs both standard neb and continuous neb is available Scheduled DuoNeb s/p tracheostomy, good recovery # Encephalopathy Telemedicine neurology Dr. Servin recommended a seizure workup EEG demonstrates general encephalopathy # Hypokalemia -Potassium replacement protocol DVT/VTE prophylaxis: heparin Code status: Full code Disposition: LTAC Chronic anxiety in exacerbation, psychiatric consultation pending Patient express opinion to leave AMA, which is inappropriate at this time, patient refused to go to rehab facility, patient refused to go home Patient placed on 07/14 nine nine orders Patient is medically cleared and ready for psychiatric evaluation Sepsis Screening Reassessment Date: Dec 24, 2024 Date of Service: Dec 24, 2024 Billing Provider: OLGA WILLIAM MD Common Visit Codes: [id number] INP/OBS CARE(HIGH) Problem Qualifiers (1) Asthma exacerbation: Qualified Codes: J45.901 - Unspecified asthma with (acute) exacerbation OLGA WILLIAM MD Dec 24, 2024 11:38
[2024-12-24] MEDS: levoFLOXACIN-Levaquin 500mg/D5 100 ML IV SCH (13:23)
[2024-12-24] MEDS ORDERED: ondansetron 4mg rapidly disintigrating tab NG PRN (17:43)
[2024-12-24 18:51] LABS: BASOPHILS % (AUTO) 0.3 % (0-1); EOSINOPHILS % (AUTO) 0.5 % (0-6); HEMATOCRIT 33.5 % (35.0-45.0); HEMOGLOBIN 11.3 g/dl (12.0-16.0); LYMPHOCYTES # (AUTO) 1.3 X10'3 (1.1-4.8); MEAN CORPUSCULAR HEMOGLOBIN 28.4 PG (27.0-31.0); MEAN CORPUSCULAR HGB CONC 33.6 g/dL (33.0-36.5); MEAN CORPUSCULAR VOLUME 84.5 FL (78-98); MEAN PLATELET VOLUME 7.3 FL (7.4-10.4); MONOCYTES # (AUTO) 0.6 X10'3 (0-0.9); NEUTROPHILS % (AUTO) 78.2 % (42-75); PLATELET COUNT 307 X10'3 (140-440); RED BLOOD COUNT 3.96 X10'6 (4.20-5.60); RED CELL DISTRIBUTION WIDTH 14.7 % (11.5-14.5)
[2024-12-24 19:04] LABS: ALANINE AMINOTRANSFERASE 48 U/L (12-78); ALBUMIN 3.2 G/DL (3.4-5.0); ALBUMIN/GLOBULIN RATIO 0.9 (1.1-1.5); ALKALINE PHOSPHATASE 62 IU/L (46-116); ANION GAP 9 (8-16); ASPARTATE AMINO TRANSFERASE 25 U/L (10-37); BILIRUBIN,TOTAL 0.2 MG/DL (0.1-1.0); BLOOD UREA NITROGEN 9 MG/DL (7-18); BUN/CREATININE RATIO 19.6 (10.0-20.0); CALCIUM 8.9 MG/DL (8.5-10.1); CHLORIDE 104 MMOL/L (99-107); CREATININE 0.46 MG/DL (0.40-0.90); GLUCOSE 100 MG/DL (70-104); POTASSIUM 3.5 MMOL/L (3.5-5.1); SODIUM 141 MMOL/L (135-145); TOTAL CARBON DIOXIDE 28.3 MMOL/L (24-32); TOTAL PROTEIN 6.9 G/DL (6.4-8.2); eCRCL 183 ML/MIN; eGFR > 90 ML/MIN
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
[2024-12-25] VITALS (14 sets, daily range): BP systolic 88–118; BP diastolic 61–81; PULSE 94–117; RESP 12–20; TEMP 97.7–98.6; O2SAT 96–100
--- NOTE | 2024-12-25 18:40 | PROGRESS NOTE ---
Daily Progress Note Providers to CC No new complaint today, resting comfortably in the bed ~ Central Line/PICC still needed: No Sin-Non Protocol Sin Indications Met/Not Met: F/C Indications Not Met Antibiotic Timeout Antibiotic Ordered?: Yes MRSA Education MRSA Education Provided to pt: Yes Subjective As above Objective Vital Signs Date Time Temp Pulse Resp B/P (MAP) Pulse Ox O2 Delivery O2 Flow Rate FiO2 12/25/24 16:06 112 19 Cool Aerosol 6.0 28 Trach Collar 12/25/24 16:01 98 12/25/24 15:00 98.6 115/81 (92) Vital signs, stable ,afebrile. Pulse Oximetry reflects adequate oxygenation on cyst L oxygen nasal cannula General: well developed, well nourished. Awake , alert, and oriented x4, resting comfortably in the bed, in no acute distress . Skin: Warm, dry, no pallor, no rash or petechiae. HEENT: Atraumatic, normocephalic, EOMI, anicteric sclera B; pink conjunctiva; PERRLA, normal oropharynx, moist oral and nasal mucosa. Tympanic membrane , nose , throat clear. Neck: Trachea midline. Tracheostomy in place functional, Supple, full range of motion, no JVD, bruit , hepatojugular reflex , lymphadenopathy or masses, or other lesions Cardiac: Regular rhythm, regular rate no murmurs, rubs, or gallops. Normal S1 and S2, no S3 noticed. PMI is normal. Respiratory: Equal breath sounds bilaterally, no tachypnea; lungs clear to auscultation bilaterally, no wheezing ,rub or rales, or crackles. Chest wall is symmetric and without deformity. No signs of trauma. Chest wall is nontender. No signs of respiratory distress. Resonance is normal upon percussion bilaterally. Gastrointestinal: Abdomen symmetric, non-distended, soft, non-tender, normal bowel sounds x4 quadrant, normoactive, no hepatosplenomegaly , no masses , no bruit, no flank pain bilaterally. No voluntary guarding, rebound, or rigidity. No tenderness to percussion. No pulsatile masses. Equal femoral pulses. No Goldman's sign or McBurney point tenderness. Back; no CVA tenderness bilaterally, no deformities. Neck and back are without deformity as well. No tenderness noted on palpation of the spinous processes. Spinous processes are midline. Cervical, thoracic, and lumbar paraspinal muscles are not tender and are without spasm. Musculoskeletal: Extremities, normal range of motion, non-tender, muscle strength 5/5 x 4. Negative Homans signs bilaterally on lower extremity. Distal pulses full symmetrical, no clubbing, cyanosis , edema. Neurological: Speech is clear, alert, and oriented x 4. No motor or sensory deficit, deep tendon reflexes normal, cerebellar intact. Cranial nerves II-XII intact. Psych: Alert and or appropriate, normal affect. Vascular: Good distal pulses, which are equal x4; capillary refill less than 2 seconds. Lymphatic, no lymphadenopathy. Result Diagram: 12/24/24183112/24/241831 Problem\Assessment\Plan Problems/Diagnosis: (1) Asthma exacerbation Assessment/plan # Acute asthma exacerbation # Vocal cord dysfunction syndrome # Acute hypoxic respiratory failure # Community-acquired pneumonia- POA Levaquin IV # Lactic acidosis 2/2 severe hypoxemia, resolved The patient was intubated and transferred to the ICU on the morning of 12/08/2024 On IV Solu-Medrol Albuterol PRN nebs both standard neb and continuous neb is available Scheduled DuoNeb s/p tracheostomy, good recovery # Encephalopathy Telemedicine neurology Dr. Servin recommended a seizure workup EEG demonstrates general encephalopathy # Hypokalemia -Potassium replacement protocol DVT/VTE prophylaxis: heparin Code status: Full code Disposition: LTAC Chronic anxiety in exacerbation, psychiatric consultation completed Patient express opinion to leave AMA, which is inappropriate at this time, patient refused to go to rehab facility, patient refused to go home Patient placed on 07/14 nine nine orders Patient is medically cleared and ready for psychiatric evaluation Sepsis Screening Reassessment Date: Dec 25, 2024 Date of Service: Dec 25, 2024 Billing Provider: OLGA WILLIAM MD Common Visit Codes: [id number] INP/OBS CARE(HIGH) Problem Qualifiers (1) Asthma exacerbation: Qualified Codes: J45.901 - Unspecified asthma with (acute) exacerbation OLGA WILLIAM MD Dec 25, 2024 18:40
[2024-12-26] VITALS (7 sets, daily range): BP systolic 103–109; BP diastolic 66–76; PULSE 92–114; RESP 14–22; TEMP 97.1–97.6; O2SAT 98–100
[2024-12-26 07:54] LABS: BASOPHILS % (AUTO) 0.5 % (0-1); EOSINOPHILS # (AUTO) 0.1 X10'3 (0-0.9); EOSINOPHILS % (AUTO) 1.2 % (0-6); HEMOGLOBIN 11.4 g/dl (12.0-16.0); LYMPHOCYTES # (AUTO) 1.4 X10'3 (1.1-4.8); LYMPHOCYTES % (AUTO) 24.5 % (21-51); MEAN CORPUSCULAR HEMOGLOBIN 28.3 PG (27.0-31.0); MEAN CORPUSCULAR HGB CONC 33.5 g/dL (33.0-36.5); MEAN CORPUSCULAR VOLUME 84.5 FL (78-98); MEAN PLATELET VOLUME 7.5 FL (7.4-10.4); MONOCYTES # (AUTO) 0.4 X10'3 (0-0.9); MONOCYTES % (AUTO) 7.4 % (2-12); NEUTROPHILS # (AUTO) 3.8 X10'3 (1.8-7.7); NEUTROPHILS % (AUTO) 66.4 % (42-75); PLATELET COUNT 340 X10'3 (140-440); RED BLOOD COUNT 4.02 X10'6 (4.20-5.60); RED CELL DISTRIBUTION WIDTH 15.2 % (11.5-14.5); WHITE BLOOD COUNT 5.7 X10'3 (4.5-11.0)
[2024-12-26 08:06] LABS: ANION GAP 8 (8-16); BLOOD UREA NITROGEN 10 MG/DL (7-18); BUN/CREATININE RATIO 18.5 (10.0-20.0); CHLORIDE 100 MMOL/L (99-107); CREATININE 0.54 MG/DL (0.40-0.90); GLUCOSE 101 MG/DL (70-104); POTASSIUM 3.5 MMOL/L (3.5-5.1); SODIUM 136 MMOL/L (135-145); TOTAL CARBON DIOXIDE 28.2 MMOL/L (24-32); eCRCL 156 ML/MIN; eGFR > 90 ML/MIN
[2024-12-26 08:07] LABS: ALANINE AMINOTRANSFERASE 37 U/L (12-78); ALBUMIN 3.2 G/DL (3.4-5.0); ALBUMIN/GLOBULIN RATIO 0.9 (1.1-1.5); ALKALINE PHOSPHATASE 56 IU/L (46-116); ASPARTATE AMINO TRANSFERASE 23 U/L (10-37); BILIRUBIN,TOTAL 0.4 MG/DL (0.1-1.0); TOTAL PROTEIN 6.9 G/DL (6.4-8.2)
[2024-12-26 08:30] LABS: ANISOCYTOSIS 1+; PLATELET ESTIMATE NORMAL; TOTAL CELLS COUNTED 100
[2024-12-26] MEDS ORDERED: LEVO-65 PO (12:50)
--- NOTE | 2024-12-26 16:08 | DISCHARGE SUMMARY ---
Discharge Summary Providers to Feels fine today asking to be discharged home ~ Discharge Summary Assessment Bronchial asthma in severe exacerbation Acute respiratory failure Status post endotracheal intubation Status post tracheostomy Bilateral pneumonia community-acquired mixed juanito Anxiety disorder in exacerbation Admission Diagnosis: resp failure Admission Diagnosis Comment: Bronchial asthma in severe exacerbation Acute respiratory failure Status post endotracheal intubation Status post tracheostomy Bilateral pneumonia community-acquired mixed juanito Anxiety disorder in exacerbation Hospital Course DATE OF ADMISSION: December 06, 2024 DATE OF DISCHARGE: December 26, 2024 Discharge Diagnosis\Comment: Bronchial asthma in severe exacerbation Acute respiratory failure Status post endotracheal intubation Status post tracheostomy Bilateral pneumonia community-acquired mixed juanito Anxiety disorder in exacerbation Operations\Procedures: Tracheostomy Endotracheal intubation Consultants: General surgeon, ICU , Psychiatry provider Complications: Non Condition on DC: Stable Discharge Summary: This patient is a 24 y/o female with asthma who presents to ED with chief complaint of shortness of breath. Patient reports that she was in the [place] where she was visiting her brother yesterday when she started to experience persistent shortness of breath. Patient does have breathing treatments at home which she has been using [id number], however they only provider her temporary relief. She decided to be seen by a doctor in the [place] yesterday where she was treated with IV steroids, stating that after riding in the car with her brother who was vaping, her symptoms became much worse. She notes she is producing white phlegm. She denies any fevers or sick contacts. Patient reports she has been hospitalized 3 times over the past year for asthma exacerbation, the last time being in October, approximately 2 months ago at which time she was admitted to the ICU. Patient notes that she is supposed to be on daily steroid treatment, but has not been taking them over the past few weeks due to side effects. Patient denies any other associated symptoms at this time. Patient denies any other alleviating or exacerbating factors. To evaluation patient was extensively evaluated and treatment including intubation tracheostomy, recovery was fine, today she is feeling fine asking to be discharged home, she will be discharged in stable condition follow-up PCP, surgeon, in the morning, medication reconciled, recommended to return to emergency department if con dition worsens, today on physical exam Vital signs, stable ,afebrile. Pulse Oximetry reflects adequate oxygenation. General: well developed, well nourished. Awake , alert, and oriented x4, resting comfortably in the bed, in no acute distress . Skin: Warm, dry, no pallor, no rash or petechiae. HEENT: Tracheostomy functional in place, Atraumatic, normocephalic, EOMI, anicteric sclera B; pink conjunctiva; PERRLA, normal oropharynx, moist oral and nasal mucosa. Tympanic membrane , nose , throat clear. Neck: Trachea midline. Supple, full range of motion, no JVD, bruit , hepatojugular reflex , lymphadenopathy or masses, or other lesions Cardiac: Regular rhythm, regular rate no murmurs, rubs, or gallops. Normal S1 and S2, no S3 noticed. PMI is normal. Respiratory: Equal breath sounds bilaterally, no tachypnea; lungs clear to auscultation bilaterally, no wheezing ,rub or rales, or crackles. Chest wall is symmetric and without deformity. No signs of trauma. Chest wall is nontender. No signs of respiratory distress. Resonance is normal upon percussion bilaterally. Gastrointestinal: Abdomen symmetric, non-distended, soft, non-tender, normal bowel sounds x4 quadrant, normoactive, no hepatosplenomegaly , no masses , no bruit, no flank pain bilaterally. No voluntary guarding, rebound, or rigidity. No tenderness to percussion. No pulsatile masses. Equal femoral pulses. No Goldman's sign or McBurney point tenderness. Back; no CVA tenderness bilaterally, no deformities. Neck and back are without deformity as well. No tenderness noted on palpation of the spinous processes. Spinous processes are midline. Cervical, thoracic, and lumbar paraspinal muscles are not tender and are without spasm. Musculoskeletal: Extremities, normal range of motion, non-tender, muscle strength 5/5 x 4. Negative Homans signs bilaterally on lower extremity. Distal pulses full symmetrical, no clubbing, cyanosis , edema. Neurological: Speech is clear, alert, and oriented x 4. No motor or sensory deficit, deep tendon reflexes normal, cerebellar intact. Cranial nerves II-XII intact. Psych: Alert and or appropriate, normal affect. Vascular: Good distal pulses, which are equal x4; capillary refill less than 2 seconds. Lymphatic, no lymphadenopathy. *Problems/Diagnosis: (1) Asthma exacerbation Status: Acute Total Time Spent on D/C: > 30 Minutes Date of Service: Dec 26, 2024 Billing Provider: OLGA WILLIAM MD Common Visit Codes: 85826-[facility]/OBS DISCH DAY >30min Problem Qualifiers (1) Asthma exacerbation: Qualified Codes: J45.901 - Unspecified asthma with (acute) exacerbation OLGA WILLIAM MD Dec 26, 2024 16:08
== END 2024-12-26 15:00 | disposition home or self-care (01) | DRG 4 ==
LOC: ER 12:46 → ED HOLD 16:21 → EDBEDREQ 22:14 → ORTHO 4S 23:20 → CICU 2S 12-08 08:47 → PCU 3S 12-22 10:50
PROVIDERS: ADMIT Nurse Practitioner Family; ATTEND Nurse Practitioner Family
PROC: B32T1ZZ Computerized Tomography (CT Scan) of Left Pulmonary Artery using Low Osmolar Contrast (ICD-10-PCS; 2024-12-06)
PROC: B3201ZZ Computerized Tomography (CT Scan) of Thoracic Aorta using Low Osmolar Contrast (ICD-10-PCS; 2024-12-06)
PROC: B32S1ZZ Computerized Tomography (CT Scan) of Right Pulmonary Artery using Low Osmolar Contrast (ICD-10-PCS; 2024-12-06)
PROC: 4A00X4Z Measurement of Central Nervous Electrical Activity, External Approach (ICD-10-PCS; 2024-12-08)
PROC: 05HB33Z Insertion of Infusion Device into Right Basilic Vein, Percutaneous Approach (ICD-10-PCS; 2024-12-08)
PROC: B54MZZA Ultrasonography of Right Upper Extremity Veins, Guidance (ICD-10-PCS; 2024-12-08)
PROC: 0BH17EZ Insertion of Endotracheal Airway into Trachea, Via Natural or Artificial Opening (ICD-10-PCS; 2024-12-08)
PROC: 5A1945Z Respiratory Ventilation, 24-96 Consecutive Hours (ICD-10-PCS; 2024-12-08)
PROC: 5A1955Z Respiratory Ventilation, Greater than 96 Consecutive Hours (ICD-10-PCS; 2024-12-11)
PROC: 5A09357 Assistance with Respiratory Ventilation, Less than 24 Consecutive Hours, Continuous Positive Airway Pressure (ICD-10-PCS; 2024-12-11)
PROC: 0BH17EZ Insertion of Endotracheal Airway into Trachea, Via Natural or Artificial Opening (ICD-10-PCS; 2024-12-11)
PROC: 0B9M8ZZ Drainage of Bilateral Lungs, Via Natural or Artificial Opening Endoscopic (ICD-10-PCS; 2024-12-12)
PROC: 0B113F4 Bypass Trachea to Cutaneous with Tracheostomy Device, Percutaneous Approach (ICD-10-PCS; principal; 2024-12-16 11:20)
DX: A41.9 Sepsis, unspecified organism (principal); J18.9 Pneumonia, unspecified organism; J96.01 Acute respiratory failure with hypoxia; J45.901 Unspecified asthma with (acute) exacerbation; E87.20 Acidosis, unspecified; E87.1 Hypo-osmolality and hyponatremia; Z59.00 Homelessness unspecified; G93.40 Encephalopathy, unspecified; E66.9 Obesity, unspecified; J38.3 Other diseases of vocal cords; F41.9 Anxiety disorder, unspecified; F32.A Depression, unspecified; G83.9 Paralytic syndrome, unspecified; E87.6 Hypokalemia; D63.8 Anemia in other chronic diseases classified elsewhere; Z79.899 Other long term (current) drug therapy; Z68.21 Body mass index [BMI] 21.0-21.9, adult
CPT/HCPCS: 31622; 93306; 96365; 96375; 99291; Z7506; Z7508; 36410; 36415; 36600; 70450; 70490; 71045; 71250; 71275; 76937; 80053; 80305; 81001; 81003; 82803; 82948; 83605; 83735; 83880; 83935; 84100; 84132; 84134; 84145; 84300; 84478; 84484; 84703; 85007; 85018; 85025; 87040; 87070; 87081; 92508; 92616; 93005; 94003; 94640; 94660; 94760; 94799; 95813; 97110; 97116; 97161; 97530; A4314; A4615; A4618; A4623; A4628; A4649; A5200; A6209; A6213; A6258; A6449; A7000; A7015; A7521; A7526; A9900; C1751; C1894; G0378; J0153; J0456; J0696; J1644; J1956; J2250; J2270; J2405; J2470; J2704; J2765; J2919; J3010; J3480; J3490; J7030; J7042; J7050; J7070; J7120; J7512; Q0163; Q9967

== ENCOUNTER 2025-01-30 07:26 | Emergency (ER) | payer BC ==
[~2025-01-30] VITALS: Ht 170.2 cm; Wt 63.6 kg
[~2025-01-30 07:26] MED LIST changes: +ALBU10.7 PO; -BUDE0.256 NEB; +CHOL500049 PO; -INHA1SPA32; +IPRA3AMP31 NEB; +IVAB5TAB3 PO; -LOP12.5T PO; -METH4TAB81 PO; +METO-395 PO; -PANT40SU2 PO; +PRE5T PO; +TEZE210P SQ; -TIOT4MIS2; +[UNRECOGNIZED DRUG - CODE] NEB
[2025-01-30 07:27] VITALS: TEMP 98.4
[2025-01-30] MEDS: normal saline 1000ML IV soln IVB ONE (08:00)
--- NOTE | 2025-01-30 08:09 | ELECTROCARDIOGRAPH REPORT ---
[facility] Test Date: 2025-01-30 Test Time: 08:07:15 Pat Name: LULU ORTIZ Department: [facility] Patient ID: [facility]-[id number] Room: Gender: F Voice Coach: : 2000 Requested By: VIV TURNER Order Number: [id number] Reading MD: Dr. Toro Tapia Measurements Intervals [place] Rate: 108 P: 56 GA: 137 QRS: 58 QRSD: 84 T: 20 QT: 328 QTc: 440 Interpretive Statements Sinus tachycardia Electronically Signed On 01-30-2025 18:54:[address] Toro Tapia Please click the below link to view image of tracing.
--- NOTE | 2025-01-30 08:10 | Physician Documentation ---
History of Present Illness ~ Chief Complaint: Allergic Reaction Stated Complaint: ALLERGIC REACTION Time Seen by MD: 07:45 Primary Medical Doctor: Frankie (PCP)/CHETNA for asthma Source: patient Mode of Arrival: POV Exam Limitations: no limitations HPI Chief Complaint: Shortness a breath Caveat: None Independent Historians: None History of Present Illness: Patient is a 24-year-old woman who comes in complaining of shortness a breath. Patient states that she has an allergy to nuts and that she was eating [place] food last night at a restaurant between [place] nine when 30 minutes later she developed a rash and shortness a breath. Patient went home and took a Zyrtec and Benadryl the rash resolves. Patient also used her nebulizer machine last night with the albuterol/DuoNeb. When she woke up this morning she states that she still felt short of breath. Patient took an additional Zyrtec this morning. Patient states that her rash did not return but that her eyes feel itchy and watery. Review of systems: All systems were reviewed and are negative except for what is indicated in the history of present illness. Past Medical History: Asthma Past Surgical History: Noncontributory, history of trach Social History: No tobacco use, no alcohol use, no drug use Medications: Reviewed as documented Nursing Notes Allergies: Reviewed as documented in Nursing Notes Medication Reconciliation Allergies: Uncoded Allergies: PEANUTS (Allergy, Unknown, 01/30/25) Scheduled Budesonide/Formoterol Fumarate (Budesonide-Formoterol 160-4.5), 2 PUFFS IH BID, (Reported) Cholecalciferol (Vitamin D3) (Vitamin D3), 1 CAP PO Q7D, (Reported) Ivabradine HCl (Ivabradine HCl), 1 TAB PO DAILY, (Reported) Metoprolol Succinate (Metoprolol Succinate), 1 TAB PO DAILY, (Reported) Prednisone (predniSONE tablet), 1 TAB PO DAILY, (Reported) Tezepelumab-Ekko (Tezspire), 210 MG SQ Q4W, (Reported) Scheduled PRN Albuterol Sulfate (Albuterol Sulfate), 2 PUFFS IH Q4H PRN for SOB or wheezing, (Reported) Albuterol Sulfate/Budesonide (Airsupra 90-80 Mcg Inhaler), 2 PUFFS PO Q4H PRN for wheezing, (Reported) Cromolyn Sodium (Cromolyn Sodium), 1 ML NEB TID PRN for ALLERGIES, (Reported) Ipratropium/Albuterol Sulfate (Duoneb 2.5-0.5 Mg/3 Ml Soln), 1 VIAL NEB Q4H PRN for SOB or wheezing, (Reported) Past Medical History Past Medical History: Asthma Past Surgical History: no surgical history Patient History: Patient reports no known family medical history. Alcohol Use: None Drug Use: none Review of Systems All Other Systems at this time: Reviewed and Negative ROS Patient denies any other acute symptoms other than above. All other systems are negative Physical Exam Vital Signs: RN Vital Signs have been reviewed: Yes, Temperature: 98.4, Source: Oral, Heart Rate: 124, Respiratory Rate: 18, BP: 156/88, Pulse Oximetry: 99, Weight: 63.640 Pulse Oximetry Reflects: adequate oxygenation Physical Exam General Appearance: No distress HEENT: Normal OP, moist oral mucosa, PERRL, EOMI Neck: supple, normal ROM, trachea midline Pulmonary: No respiratory distress, CTA, BS equal but seemed diminished throughout, patient has an inspiratory high-pitched squeak coming from her neck where she had a recent trach. Cardiac: RRR, no murmur, rub or gallop, GI: nondistended, soft, nontender, normal bowel sounds, no guarding, no rebound Extremities: normal ROM, no swelling, non-tender Skin: intact, dry, warm, no rashes Neuro: AAOx3, speech is clear, no focal motor weakness Psych: normal affect, good eye contact, no apparent hallucination, normal speech Progress Results/Orders Results/Orders Orders - VIV TURNER MD Chest,Single View (01/30/25 07:58) Monitor (01/30/25 07:58) Svn Treatment (01/30/25 07:58) Prednisone Tablet (Prednisone Tablet) (01/30/25 08:50) Completed Orders - VIV TURNER MD Electrocardiogram (01/30/25 07:58) Cbc/Diff (01/30/25 07:58) Chest,Single View (01/30/25 07:58) Methylprednisolone Sod Succ (Solumedrol (01/30/25 08:00) Normal Saline 1000ml (0.9% Sodium Chlori (7/26/25 08:00) BMP (01/30/25 07:58) Albuterol 2.5mg/3ml Nebule (Proventil 2. (01/30/25 08:00) Ipratropium/Albuterol Nebule (Ipratrop/A (01/30/25 08:00) Medications Received in ER Medications (Trade) Dose Ordered Sig/Cherry Route PRN Reason Start Time Stop Time Status Last Admin Dose Admin (Proventil 2.5 MG/3ML nebule) 5 mg ONCE ONCE NEB 01/30/25 08:00 01/30/25 08:01 DC 01/30/25 08:12 5 MG (ipratrop/ albuterol 0.5-3(2.5) MG/3ml nebule) 3 ml ONCE ONCE NEB 01/30/25 08:00 01/30/25 08:02 DC 01/30/25 08:12 3 ML Vital Signs 01/30/25 01/30/25 01/30/25 01/30/25 07:27 07:56 08:17 08:40 Temp 98.4 Pulse 124 113 113 Resp 18 20 18 18 B/P (MAP) 156/88 Pulse Ox 99 96 98 O2 Delivery Room Air* Room Air* O2 Flow Rate 0 0 FiO2 21 21 Laboratory Tests Test 01/30/25 08:32 White Blood Count 4.3 L Red Blood Count 4.13 L Hemoglobin 11.4 L Hematocrit 34.3 L Mean Corpuscular Volume 83.1 Mean Corpuscular Hemoglobin 27.5 Mean Corpuscular Hemoglobin Concent 33.1 Red Cell Distribution Width 14.8 H Platelet Count 247 Mean Platelet Volume 7.5 Neutrophils (%) (Auto) 59.4 Lymphocytes (%) (Auto) 30.1 Monocytes (%) (Auto) 8.8 Eosinophils (%) (Auto) 1.0 Basophils (%) (Auto) 0.7 Neutrophils # (Auto) 2.6 Lymphocytes # (Auto) 1.3 Monocytes # (Auto) 0.4 Eosinophils # (Auto) 0.0 Basophils # (Auto) 0.0 CBC Comment Sodium Level 137 Potassium Level 3.6 Chloride Level 106 Carbon Dioxide Level 24.3 Anion Gap 7 L Blood Urea Nitrogen 7 Creatinine 0.50 Estimated GFR/1.73 m2 > 90 BUN/Creatinine Ratio 14.0 Glucose Level 90 Calcium Level 8.8 Albumin 3.9 Chemistry Comments Medical Decision Making Findings Differential diagnosis includes but is not limited to: Allergic reaction, anaphylaxis, asthma exacerbation Chest x-ray, single view, indication: Shortness a breath Independent interpretation: Lungs are clear, normal mediastinum, normal cardiac silhouette, no acute cardiopulmonary process. Laboratory data independent interpretation: CBC: Remarkable, moderate anemia with a hemoglobin 11.4 BNP: Normal Emergency department course/medical decision-making: Consultation/communications: Departure Time of Disposition: 08:51 Disposition: 01 HOME / SELF CARE / HOMELESS Impression: Primary Impression: Acute allergic reaction Qualified Codes: T78.40XA - Allergy, unspecified, initial encounter Condition: Stable Discharge Instructions: Food Choices for Tree Nut Allergy, Adult, Anaphylactic Reaction, Adult, [id number], Hives, Cvmv-[id number] Prescriptions Epinephrine (Epipen 2-Thai) 0.3 Mg/0.3 Ml Auto.injct 1 SYR IM ONCE for 1 Day, #1 PKT 0 Refills Prov: VIV TURNER MD 01/30/25 Education Educated: Patient Educated regarding: diagnosis, treatment, need for follow up Signature Scribe Signature: No scribe Attestation: No scribe VIV TURNER MD Jan 30, 2025 08:10
[2025-01-30] MEDS: ipratropium/albuterol 3ml nebule NEB ONE (08:12)
[2025-01-30] MEDS: albuterol 2.5 MG/3 ML nebule NEB ONE (08:12)
[2025-01-30 08:17] VITALS: PULSE 113; RESP 18; O2SAT 96
[2025-01-30 08:39] LABS: MEAN PLATELET VOLUME 7.5 FL (7.4-10.4); RED CELL DISTRIBUTION WIDTH 14.8 % (11.5-14.5)
[2025-01-30 08:40] VITALS: PULSE 113; RESP 18; O2SAT 98
[2025-01-30 08:48] LABS: CREATININE 0.50 MG/DL (0.40-0.90); TOTAL CARBON DIOXIDE 24.3 MMOL/L (24-32); eCRCL 169 ML/MIN; eGFR > 90 ML/MIN
[2025-01-30] MEDS ORDERED: PRED20TA PO (08:54)
[2025-01-30] MEDS ORDERED: EPIN0.3P3 IM (08:55)
--- NOTE | 2025-01-30 08:55 | RADIOLOGY REPORT ---
DI CHEST,SINGLE VIEW, HISTORY: SOB COMPARISON: DI CHEST,SINGLE VIEW on DOS: 12/18/24, DI CHEST,SINGLE VIEW on DOS: 12/17/24, DI CHEST,SING LE VIEW on DOS: 12/16/24 DI CHEST,SINGLE VIEW on DOS: 12/18/24, DI CHEST,SINGLE VIEW on DOS: 12/17/24, DI CHEST,SINGLE VIEW on D OS: 12/16/24 TECHNICAL DATA: 1 view of the chest was obtained. FINDINGS: Lines and tubes: None Cardiomediastinal silhouette: normal Pulmonary vasculature: normal Lung expansion: normal Lung airspace: normal Lung interstitium: normal Pleura: normal Pneumothorax: no Bones: Unremarkable Other: no IMPRESSION: No acute intrathoracic abnormality.
[2025-01-30 09:32] VITALS: BP 107/71; PULSE 114; RESP 16; O2SAT 100
== END 2025-01-30 09:15 | disposition home or self-care (01) ==
LOC: ER 07:27
DX: T78.1XXA Other adverse food reactions, not elsewhere classified, initial encounter (principal); J45.909 Unspecified asthma, uncomplicated; Z79.899 Other long term (current) drug therapy; X58.XXXA Exposure to other specified factors, initial encounter
CPT/HCPCS: 36415; 71045; 80048; 85025; 93005; 94640; 99285; J7512; 94760; J7030

== ENCOUNTER 2025-02-12 22:14 | Inpatient (IN) | payer BC ==
[~2025-02-12] VITALS: Ht 170.2 cm; Wt 68.7 kg
[~2025-02-12 22:14] MED LIST changes: +EPIN0.3P3 IM
[2025-02-12] MEDS: dexamethasone sod phosphate 10mg/ml inj IV STA (22:21)
[2025-02-12] MEDS: albuterol 2.5 MG/3 ML nebule CONTNEB PRN (22:28)
[2025-02-12] MEDS: racepinephrine 11.25mg/0.5ml nebule IH ONE (22:28)
[2025-02-12 22:29] VITALS: PULSE 126; RESP 18; O2SAT 100
[2025-02-12 22:33] LABS: MEAN PLATELET VOLUME 7.5 FL (7.4-10.4); RED CELL DISTRIBUTION WIDTH 14.7 % (11.5-14.5)
--- NOTE | 2025-02-12 22:43 | RADIOLOGY REPORT ---
CHEST RADIOGRAPH Indication: SOB Technique: Single frontal view of the chest was obtained COMPARISON: DI CHEST,SINGLE VIEW on DOS: 01/30/25, CT CT CHEST on DOS: 12/23/24, DI CHEST,SINGLE VIEW o n DOS: 12/18/24, DI CHEST,SINGLE VIEW on DOS: 12/17/24, DI CHEST,SINGLE VIEW on DOS: 12/16/24 FINDINGS: Lines and Tubes: None Lungs: Clear Pleura: No effusion. No pneumothorax. Cardiomediastinal contours: Unremarkable Bones: Unremarkable IMPRESSION: 1. No acute disease.
--- NOTE | 2025-02-12 22:45 | ELECTROCARDIOGRAPH REPORT ---
[facility] Test Date: 2025-02-12 Test Time: 22:45:16 Pat Name: LULU ORTIZ Department: [facility] Patient ID: [facility]-[id number] Room: Gender: F Rod Buster: SHELLIE : 2000 Requested By: VIV TURNER Order Number: [id number] Reading MD: Measurements Intervals [place] Rate: 118 P: 51 DC: 133 QRS: 57 QRSD: 86 T: 24 QT: 321 QTc: 450 Interpretive Statements Sinus tachycardia Please click the below link to view image of tracing.
[2025-02-12 22:48] LABS: CREATININE 0.59 MG/DL (0.40-0.90); TOTAL CARBON DIOXIDE 19.2 MMOL/L (24-32); eGFR > 90 ML/MIN
--- NOTE | 2025-02-12 22:54 | Physician Documentation ---
History of Present Illness ~ Chief Complaint: Allergic Reaction Stated Complaint: ANAPHYLAXIS Time Seen by MD: 22:20 OK to notify your PCP?: Yes Primary Medical Doctor: Frankie (PCP)/CHETNA for asthma Source: patient, EMS, EMS notes reviewed Mode of Arrival: EMS Exam Limitations: no limitations HPI Chief Complaint: Shortness a breath Caveat: None Independent Historians: Paramedics History of Present Illness: Patient is a 24-year-old woman with known peanut allergy who complains of severe shortness a breath that began just prior to arrival. Patient is brought in by paramedics from home. Patient has a known peanut allergy and she developed shortness a breath and facial swelling and stridor after eating dinner. It is unknown what was used to cook her dinner that may have caused the reaction. Paramedics gave a DuoNeb and 0.5 mg IM epi x2. Paramedics found the patient in tripod position with some stridor. Patient states that she is not sure if she is feeling better same or worse after paramedics treatment. Patient immediately placed on customer operations representative and given Decadron 10 mg IV, Solu-Medrol 125 mg IV, racemic epi and albuterol 5 mg continuous neb. Review of systems: All systems were reviewed and are negative except for what is indicated in the history of present illness. Past Medical History: Asthma Past Surgical History: history of trach Social History: No tobacco use, no alcohol use, no drug use Medications: Reviewed as documented Nursing Notes Allergies: Reviewed as documented in Nursing Notes Medication Reconciliation Allergies: Coded Allergies: peanut (Verified Allergy, Unknown, 02/12/25) Scheduled Budesonide/Formoterol Fumarate (Budesonide-Formoterol 160-4.5), 2 PUFFS IH BID, (Reported) Cholecalciferol (Vitamin D3) (Vitamin D3), 1 CAP PO Q7D, (Reported) Prednisone* (Prednisone*), 2 TAB PO DAILY, (Reported) Tezepelumab-Ekko (Tezspire), 210 MG SQ Q4W, (Reported) Scheduled PRN Albuterol Sulfate (Albuterol Sulfate), 2 PUFFS IH Q4H PRN for SOB or wheezing, (Reported) Albuterol Sulfate/Budesonide (Airsupra 90-80 Mcg Inhaler), 2 PUFFS PO Q4H PRN for wheezing, (Reported) Epinephrine (Epinephrine), 0.3 MG IM for allergies, (Reported) Ipratropium/Albuterol Sulfate (Duoneb 2.5-0.5 Mg/3 Ml Soln), 1 VIAL NEB Q4H PRN for SOB or wheezing, (Reported) Discontinued Medications Cromolyn Sodium (Cromolyn Sodium), 1 ML NEB TID PRN for ALLERGIES, (Reported) Discontinued Reason: Other Epinephrine (Epipen 2-Thai), 1 SYR IM ONCE Discontinued Reason: Other Ivabradine HCl (Ivabradine HCl), 1 TAB PO DAILY, (Reported) Discontinued Reason: Other Metoprolol Succinate (Metoprolol Succinate), 1 TAB PO DAILY, (Reported) Discontinued Reason: Other Prednisone (predniSONE tablet), 1 TAB PO DAILY, (Reported) Discontinued Reason: Other Past Medical History Past Medical History: Asthma Past Surgical History: no surgical history Patient History: Patient reports no known family medical history. Alcohol Use: None Drug Use: none Review of Systems All Other Systems at this time: Reviewed and Negative ROS Patient denies any other acute symptoms other than above. All other systems are negative Physical Exam Vital Signs: RN Vital Signs have been reviewed: Yes, Heart Rate: 126, Respirato ry Rate: 25, BP: 127/80, Pulse Oximetry: 100 Oxygen Flow Rate: 8.0 Pulse Oximetry Reflects: adequate oxygenation Physical Exam General Appearance: ACUTELY ILL-APPEARING, MODERATE TO SEVERE DISTRESS HEENT: Normal OP, moist oral mucosa, PERRL, EOMI, FACE APPEARS SWOLLEN BUT LIPS AND TONGUE DO NOT APPEAR SWOLLEN. Neck: supple, normal ROM, trachea midline, SCAR AT THE BASE OF THE NECK STERNAL NOTCH. Pulmonary: MODERATE RESPIRATORY DISTRESS, TACHYPNEA, BREATH SOUNDS ARE MORE PROMINENT ON THE RIGHT COMPARED TO LEFT. AND OCCASIONAL HIGH-PITCHED INSPIRATORY STRIDOR. Cardiac: TACHYCARDIC, REGULAR RHYTHM, no murmur, rub or gallop, GI: nondistended, soft, nontender, normal bowel sounds, no guarding, no rebound Extremities: normal ROM, no swelling, non-tender Skin: intact, dry, warm, no rashes Neuro: AAOx3, speech is clear, no focal motor weakness Psych: normal affect, good eye contact, no apparent hallucination, normal speech Progress Results/Orders Results/Orders Orders - VIV TURNER MD Chest,Single View (02/12/25 22:33) Monitor (02/12/25 22:20) Saline Lock (02/12/25 22:20) Svn Treatment (02/12/25 22:20) Cont Nebulizer Treatment (02/12/25 22:20) Albuterol 2.5mg/3ml Nebule (Proventil 2. (02/12/25 22:20) Page Hospitalist (02/12/25 22:59) Fill Out Med Reconciliation (02/12/25 22:59) Completed Orders - VIV TURNER MD Dexamethasone Inj (Decadron 10mg/Ml Inj) (02/12/25 22:15) Methylprednisolone Sod Succ (Solumedrol (02/12/25 22:15) Electrocardiogram (02/12/25 22:20) Cbc/Diff (02/12/25 22:20) Chest,Single View (02/12/25 22:33) Methylprednisolone Sod Succ (Solumedrol (02/12/25 22:20) Normal Saline 1000ml (0.9% Sodium Chlori (02/12/25 22:20) Racepinephrine Nebule (S-2 Nebule) (02/12/25 22:20) CMP (02/12/25 22:24) Medications Received in ER Medications (Trade) Dose Ordered Sig/Cherry Route PRN Reason Start Time Stop Time Status Last Admin Dose Admin (Decadron 10mg/ ml inj) 10 mg ONCE STAT IV 02/12/25 22:15 02/12/25 22:17 DC 02/12/25 22:21 10 MG (SoluMEDROL 125mg inj) 125 mg ONCE ONCE IV 02/12/25 22:15 02/12/25 22:18 DC 02/12/25 22:21 125 MG (0.9% sodium chloride (NS) 1000ml IV soln) 500 ml ONCE ONCE IVB 02/12/25 22:20 02/12/25 22:22 DC 02/12/25 23:12 500 ML (S-2 nebule) 0.5 ml ONCE ONCE IH 02/12/25 22:20 02/12/25 22:22 DC 02/12/25 22:28 0.5 ML (Proventil 2.5 MG/3ML nebule) 10 mg Q1H PRN CONTNEB SOB or wheezing 02/12/25 22:20 02/12/25 22:28 10 MG Vital Signs 02/12/25 02/12/25 02/12/25 02/12/25 22:16 22:29 22:29 22:29 Pulse 134 126 Resp 30 25 18 B/P (MAP) 127/80 Pulse Ox 98 100 O2 Flow Rate 15.0 8.0 02/12/25 02/12/25 23:20 23:22 Pulse 128 118 Resp 16 17 B/P (MAP) 115/72 (86) Pulse Ox 98 99 O2 Flow Rate 0 Laboratory Tests Test 02/12/25 22:27 White Blood Count 12.3 H Red Blood Count 4.31 Hemoglobin 11.6 L Hematocrit 35.4 Mean Corpuscular Volume 82.1 Mean Corpuscular Hemoglobin 27.0 Mean Corpuscular Hemoglobin Concent 32.9 L Red Cell Distribution Width 14.7 H Platelet Count 413 Mean Platelet Volume 7.5 Neutrophils (%) (Auto) 68.9 Lymphocytes (%) (Auto) 23.9 Monocytes (%) (Auto) 6.8 Eosinophils (%) (Auto) 0 Basophils (%) (Auto) 0.4 Neutrophils # (Auto) 8.5 H Lymphocytes # (Auto) 2.9 Monocytes # (Auto) 0.8 Eosinophils # (Auto) 0.0 Basophils # (Auto) 0.0 CBC Comment Sodium Level 137 Potassium Level 3.2 L Chloride Level 104 Carbon Dioxide Level 19.2 L Anion Gap 14 Blood Urea Nitrogen 7 Creatinine 0.59 Estimated GFR/1.73 m2 > 90 BUN/Creatinine Ratio 11.9 Glucose Level 148 H Calcium Level 8.6 Total Bilirubin 0.6 Aspartate Amino Transf (AST/SGOT) 17 Alanine Aminotransferase (ALT/SGPT) 18 Alkaline Phosphatase 54 Total Protein 7.2 Albumin 4.2 Globulin 3.0 Albumin/Globulin Ratio 1.4 Chemistry Comments Medical Decision Making Additional info obtained from: old records Findings Differential diagnosis includes but is not limited to: Allergic reaction, angioedema, anaphylaxis EKG independent interpretation: Performed at 10:45 p.m.. Sinus tachycardia, heart rate 114, normal axis, normal ST segments Chest x-ray, single view, indication: Shortness a breath Independent interpretation: Lungs are clear, normal mediastinum, normal cardiac silhouette. No acute cardiopulmonary process. Laboratory data independent interpretation: CBC: Mild leukocytosis of 12.3, mild anemia with a hemoglobin of 11.6, otherwise unremarkable CMP: Unremarkable, potassium 3.2, bicarb 19.2 this is all likely related to her tachypnea and DuoNeb. Serum glucose mildly elevated at 148 Emergency department course/medical decision-making: Patient is a 24-year-old woman who presents with severe acute respiratory distress secondary to a peanut allergy. There does not appear to be any angioedema. Patient was given Decadron 5 mg, Solu-Medrol 125 mg, racemic epi and albuterol neb.. Patient appears to have stabilized and slowly improving. Patient isn't hypoxic. We will recommend admission for continued treatment of acute respiratory failure secondary to peanut allergy and asthma. Lab work is unremarkable. Chest x-ray appears normal. 7:30 p.m.: Patient re-evaluated. Patient is improving. Patient states that she feels better. Patient is not on oxygen at this time. Patient remains mildly tachycardic. Patient is stable for discharge to PCU. Consultation/communications: 7:45 P.M.: Case discussed with the resident hospitalist, Dr. Norton. He will evaluate the patient for admission. Departure Time of Disposition: 22:58 Admitted to Inpatient Unit: to hospitalist Admission Level of Care: PCU with Tele Impression: Primary Impression: Acute respiratory failure Qualified Codes: J96.00 - Acute respiratory failure, unspecified whether with hypoxia or hypercapnia Additional Impressions: Acute allergic reaction Qualified Codes: T78.40XA - Allergy, unspecified, initial encounter Asthma Qualified Codes: J45.909 - Unspecified asthma, uncomplicated Peanut allergy Education Educated: Patient Educated regarding: diagnosis, treatment Critical Care Note Total Time (mins): 45 Critical Care Note Critical conditions addressed for impending deterioration include: airway/respiratory, cardiovascular, Associated risk factors involving deterioration include: Potential loss of airway and hypoxia The very real possibility of a deterioration of this patient's condition required the highest level of my preparedness for sudden, emergent intervention. I provided critical care services, which included medication orders, frequent reevaluations of the patient's condition and response to treatment, ordering and reviewing test results, and discussing the case with necessary consultants. Critical care time was exclusive of necessary procedure time. The critical care time associated with the care of the patient was 45 minutes. Signature Scribe Signature: No scribe Attestation: No scribe YUE,VIV R MD Feb 12, 2025 22:54
[2025-02-12] MEDS: normal saline 1000ML IV soln IVB ONE (23:12)
[2025-02-12 23:20] VITALS: PULSE 128; RESP 16; O2SAT 98
[2025-02-12] MEDS ORDERED: magnesium sulf-water 2g/50mL 50 ML IV PRN (23:30)
[2025-02-12] MEDS ORDERED: potassium Cl 20 mEq SR tablet PO PRN (23:30)
[2025-02-12] MEDS ORDERED: magnesium sulf-water 4G/100mL 100 ML IV PRN (23:30)
[2025-02-12] MEDS ORDERED: magnesium Cl slow-release 64mg tablet PO PRN (23:30)
[2025-02-12] MEDS ORDERED: potassium Cl 40MEQ/1/2NS 520ml 520 ML IV PRN (23:30)
[2025-02-12] MEDS ORDERED: mag hydrox/Alum hydrox/simeth 30ml oral suspension PO PRN (23:30)
[2025-02-12] MEDS ORDERED: magnesium hydroxide 30ml (MOM) UD suspension PO PRN (23:30)
[2025-02-12] MEDS ORDERED: ondansetron/PF 4mg/2ml inj IV PRN (23:30)
[2025-02-12] MEDS ORDERED: HYDROcodone/acetaminophen 5mg/325mg tablet PO PRN (23:30)
[2025-02-12] MEDS ORDERED: HYDROmorphone/PF 0.2 MG/ML SYRINGE IV PRN (23:30)
[2025-02-12] MEDS ORDERED: PRED20TA PO (23:55)
[2025-02-12] MEDS ORDERED: EPIN0.3A3 IM (23:59)
[2025-02-13] VITALS (17 sets, daily range): BP systolic 96–121; BP diastolic 59–79; PULSE 95–120; RESP 15–24; TEMP 97.6–99.9; O2SAT 95–98
[2025-02-13] MEDS: potassium Cl 20 mEq SR tablet PO PRN (01:26)
--- NOTE | 2025-02-13 01:40 | HISTORY AND PHYSICAL-Residence ---
History & Physical Providers to CC Resident Creating Document: MINDA MERRITTLAN ~ History of Present Illness Primary Medical Doctor: Frankie (PCP)/CHETNA for asthma Reason for Admit\Complaint: allergic reaction History of Present Illness This is a 24-year-old female with a known history of asthma and allergies, presented to ER complaining of shortness of breaths,itchiness and facial swelling. 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 After returning home her 2nd episode began at 6:00 pm in evening, which was associated with shortness of breath, chest tightness, itchness and facial swelling, she took duonebs, symbicort inhaler and claritin at home, itchiness improved but her SOB and facial swelling persisted, reason why she presented to ED. Patient mentioned that during spring his allergic symptoms get excerabated and she think she is also allergic to enviromental changes. She usually gets 3-4 allergic episodes in a month,sometimes with SOB only,sometimes hives and itching, she states she usually does not come to hospital for allergic episodes, resolves with Claritin , petros and sometimes she take prednisone. Patient states that she is allergic to peanut and fried rice contained peanuts which caused her symptoms. She has chronic history of allergy diagnosed when she was kid apart from that she is also allergic to shrimp. In addition to that she mentioned she was diagnosed with asthma last year for which she takes Symbicort, spirivia and tezpire injection once a month and she has also experienced multiple asthma attacks. She also follows with hand plug shaper and dietary services director Dr. Latif at [facility]. Allergies: Coded Allergies: peanut (Verified Allergy, Severe, 02/13/25) shrimp (Verified Allergy, Unknown, 02/13/25) Home Medications Home Medications Active Reported Epinephrine 0.3 Mg/0.3 Ml Auto.injct 0.3 Mg IM PRN Prednisone* (Prednisone) 20 Mg Tablet 2 Tab PO DAILY Vitamin D3 (Cholecalciferol (Vitamin D3)) 1,250 Mcg (45508 Unit) Capsule 1 Cap PO Q7D Airsupra 90-80 Mcg Inhaler (Albuterol Sulfate/Budesonide) 90 Mcg-80 Mcg/Actuation Hfa.aer.ad 2 Puffs PO Q4H PRN Duoneb 2.5-0.5 Mg/3 Ml Soln (Ipratropium/Albuterol Sulfate) 0.5 Mg-3 Mg (2.5 Mg Base)/3 Ml Ampul.neb 1 Vial NEB Q4H PRN Tezspire (Tezepelumab-Ekko) 210 Mg/1.91 Ml (110 Mg/Ml) Pen.injctr 210 Mg SQ Q4W Budesonide-Formoterol 160-4.5 (Budesonide/Formoterol Fumarate) 160 Mcg-4.5 Mcg/Actuation Hfa.aer.ad 2 Puffs IH BID Albuterol Sulfate (Albuterol) 2.5 Mg/3 Ml Vial.neb 2 Puffs IH Q4H PRN Past Medical History Past Medical History Asthma Past Surgical History Surgical History Comment No surgical history reported by patient. Family History Family History: Patient reports no known family medical history. Past Social History Social History Comment No smoking history No alcohol use history, has tried alcohol once when she was 21 No illicit drug use history. She lives in home Smoking: Non-Smoker Alcohol Use: None Drug Use: None Occupation: employed ROS All Other Systems: Reviewed and Negative ROS All reviewed and negative except she had shortness of breath, allergic reaction including hives, itching and facial swelling Exam Vitals: Vital Signs Date Time Temp Pulse Resp B/P (MAP) Pulse Ox O2 Delivery O2 Flow Rate FiO2 02/13/25 01:10 18 Room Air 02/13/25 00:36 98.0 113 115/79 (91) 96 0 General: General: awake, alert oriented to place, time, and person. HEENT-atraumatic normocephalic, neck supple without elevated JVD, no thyromegaly or carotid bruit. No lymphadenopathy bilaterally. Face:Diffuse facial swelling Eyes-no icterus or pallor seen in eyes Neck: No masses and tenderness Resp: Unlabored. Lungs clear to auscultation bilaterally. Chest: Normal expansion. Cardiovascular: Regular Rate and rhythm, normal S1 and S2 without murmur, rub or gallop Abdomen: Soft and non tender in epigastrium, no organomegaly, no guarding and rigidity, bowel sounds present Neuro: No focal weakness in the upper and lower limb muscles, power of the muscles 5/5 bilateral upper and lower extremities, normal reflexes bilaterally. Cranial nerves intact Extremities: No cyanosis,clubbing or edema Skin: Warm and Dry. Psych: Normal affect Diagnostic Data Last Recorded Lab Results: 02/12/25222602/12/252226 Advance Care Planning Advanced Care plannin - 30 Minutes (I spent 17 minutes in discussing various resuscitative measures with patient and she chose to be full code.) Additional Plan This is a 24-year-old female with a known history of asthma and allergies, presented to ER complaining of shortness of breaths,itchiness and facial swelling. 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 After returning home her 2nd episode began at 6:00 pm in evening, which was associated with shortness of breath, itchness and facial swelling,her itchiness improved with klerten at home but her SOB and facial swelling persits which prompted her to come to ER, she took duonebs and symbacor inhaler for SOB at home which did not provide her relief. Plan Anaphylaxis econdary to peanut allergy Allergic Reaction/Type 1 hypersensitivity reaction Received IV solumedrol 325 mg, epinephrine 0.5 ml and Decadron 10 mg IV in ER Continue IV Solumedrol 60 mg BID IV Famotidine 20mg Q12 Bendadryl as needed. Monitor signs for Respiratory distress Avoid allergens including peanuts and shrimp Continue Telemonitoring Asthma, not in acute excerabation -Dunebs Q4 PRN -hold home medication for now. Mild Normocytic Anaemia hemoglobin 11.6 Monitor CBC Hypokalemia K is 3.2 Placed on K replacement protocol follow up with CMP Dvt Prophylaxis: Lovenix Code Status: Full Code Date of Service: Feb 13, 2025 Billing Provider: SANCHEZ CONLEY MD, SANJAY, LAN Feb 13, 2025 01:40
[2025-02-13 06:34] LABS: MEAN PLATELET VOLUME 7.8 FL (7.4-10.4); RED CELL DISTRIBUTION WIDTH 14.7 % (11.5-14.5)
[2025-02-13 06:44] LABS: APTT 27 SECONDS (22-32); INR 1.0 INR
[2025-02-13 06:47] LABS: HCG SERUM QL NEGATIVE
[2025-02-13 07:13] LABS: CHOL/HDL RATIO 1.6 (0.00-4.99); CREATININE 0.51 MG/DL (0.40-0.90); LDL CHOLESTEROL 55 MG/DL (50-100); PHOSPHORUS 2.9 MG/DL (2.3-4.5); TOTAL CARBON DIOXIDE 20.6 MMOL/L (24-32); eCRCL 165 ML/MIN; eGFR > 90 ML/MIN
[2025-02-13] MEDS: K and/or MAG REPLACEMENT MC SCH (07:58)
[2025-02-13] MEDS: docusate sod 100mg capsule PO SCH (08:00)
[2025-02-13] MEDS ORDERED: famotidine/PF IV inj 20 MG in normal saline 100ml IV soln 100 ML IV SCH (08:00)
[2025-02-13] MEDS: ipratropium/albuterol 3ml nebule NEB PRN (08:08)
[2025-02-13] MEDS: famotidine/PF 10 mg/ml inj IV SCH (08:19)
[2025-02-13] MEDS ORDERED: albuterol 2.5 MG/3 ML nebule NEB PRN (10:25)
[2025-02-13] MEDS: ipratropium/albuterol 3ml nebule NEB SCH ×2 (11:57→19:58)
[2025-02-13] MEDS: albuterol 2.5 MG/3 ML nebule NEB ONE (14:55)
[2025-02-13] MEDS: magnesium sulf-water 2g/50mL 50 ML IV ONE (15:34)
--- NOTE | 2025-02-13 17:31 | PROGRESS NOTE- Residence ---
Progress Note - Resident Providers to CC Resident Creating Document: RASHEL GREENE, RES ~ Antibiotic Timeout Antibiotic Ordered?: No Subjective Patient is seen and examined at bedside. Patient complaints of acute shortness of breath. Swelling of face, itching are improved. Patient denied any complaints at that moment. Objective Vital Signs Date Time Temp Pulse Resp B/P (MAP) Pulse Ox O2 Delivery O2 Flow Rate FiO2 02/13/25 14:49 114 16 Room Air 0.0 02/13/25 14:42 98 21 02/13/25 06:00 97.9 114/79 (91) Result Diagram: 02/13/25 0614 02/13/25 0614 General: Alert, awake, oriented to time place and person ,Moderately Built, in mild distress HEENT: PERRLA, anicteric sclera,iconjuctiva pallor Neck: Supple, Trachea is in Midline, , no carotid bruit , no JVD Chest and Respiratory system: Symmetrical, no tenderness, Bilateral vesicular breath sounds heard,no crepitations,pleural rubs and wheeze. Cardiovascular system: Sinus Tachycardia, S1-S2 heard, regular rhythm , no murmurs/rubs/gallop Git : Soft,Tenderness in the umbilical and pelvic region, no organomegaly, no guarding/rigidity, bowel sounds are present. Neuro: No focal neurological deficits Extremities: No edema cyanosis clubbing/deformities Skin: Warm and dry Psychiatry: Affect and mood are normal. Coagulation Studies Laboratory Tests Test 02/13/25 06:14 Prothrombin Time 10.7 SECONDS (9.0-12.0) INR International Normalized Ratio 1.0 INR Activated Partial Thromboplast Time 27 SECONDS (22-32) Coagulation Comments Plan Plan Acute exacerbation of asthma Started on IV methylprednisolone 60 mg Q12H Started on NEB with ipratropium bromide and albuterol Started on Magnesium sulfate IV 100 mL at rate of 25 mL/hour p.r.n. Anaphylaxis secondary to peanut allergy, improved Received IV solumedrol 325 mg, epinephrine 0.5 ml and Decadron 10 mg IV in ER Continue IV Solumedrol 60 mg Q12H on IV Famotidine 20mg Q12H Give Bendadryl as needed. Monitor signs for Respiratory distress Avoid allergens including peanuts and shrimp Continue Telemonitoring Normocytic Normocytic Anaemia H/H are 11.4 and 34.3 Monitor CBC Hypokalemia, resolved Potassium up trended to 4. 0 Monitor electrolytes Code Status: Full Code Dvt Prophylaxis: Lovenix Diet: Regular GI Prophylaxis :Protonix Disposition: Patient was admitted for anaphylaxis secondary to peanut allergy and acute exacerbation of asthma. We will continue to monitor the patient in telemetry. Rashel Greene MD Internal medicine resident, PGY 1 Date of Service: Feb 13, 2025 Billing Provider: DONA GARCIA MD,RASHEL MERRITT, RES Feb 13, 2025 17:31 ALFREDA ZHENG, RES Feb 14, 2025 07:18
[2025-02-13] MEDS ORDERED: BUDE0.256 NEB (17:45)
[2025-02-13] MEDS ORDERED: CROM20SO NEB (17:45)
[2025-02-13] MEDS ORDERED: TIOT4MIS2 INH (17:45)
[2025-02-13] MEDS: budesonide 0.5mg/2ml UD nebule IH SCH (19:58)
[2025-02-13] MEDS: enoxaparin 40mg/0.4ml syringe SUBCUT SCH (21:23)
[2025-02-14] VITALS (10 sets, daily range): BP systolic 103–113; BP diastolic 68–73; PULSE 82–118; RESP 14–26; TEMP 97.5–98.5; O2SAT 96–99
[2025-02-14 06:37] LABS: MEAN PLATELET VOLUME 7.9 FL (7.4-10.4); RED CELL DISTRIBUTION WIDTH 15.0 % (11.5-14.5)
[2025-02-14 06:57] LABS: APTT 28 SECONDS (22-32); INR 1.1 INR
[2025-02-14 07:21] LABS: CREATININE 0.67 MG/DL (0.40-0.90); PHOSPHORUS 3.7 MG/DL (2.3-4.5); TOTAL CARBON DIOXIDE 24.2 MMOL/L (24-32); eCRCL 126 ML/MIN; eGFR > 90 ML/MIN
--- NOTE | 2025-02-14 14:31 | PROGRESS NOTE- Residence ---
Progress Note - Resident Providers to CC Resident Creating Document: ALFREDA ZHENG RES ~ Antibiotic Timeout Antibiotic Ordered?: No Objective Vital Signs Date Time Temp Pulse Resp B/P (MAP) Pulse Ox O2 Delivery O2 Flow Rate FiO2 02/14/25 11:53 106 18 Room Air 0.0 02/14/25 11:47 98 21 02/14/25 02:00 97.9 105/68 (80) Result Diagram: 02/14/25 0609 02/14/25 0609 Coagulation Studies Laboratory Tests Test 02/14/25 06:09 Prothrombin Time 10.9 SECONDS (9.0-12.0) INR International Normalized Ratio 1.1 INR Activated Partial Thromboplast Time 28 SECONDS (22-32) Coagulation Comments Advance Care Planning Advanced Care plannin - 30 Minutes Plan Plan Date of Service: Feb 14, 2025 Billing Provider: DONA GARCIA MD, VENKATESH, LAN Feb 14, 2025 14:31
[2025-02-14] MEDS ORDERED: DIPH25TA62 PO (15:06)
--- NOTE | 2025-02-14 19:56 | DISCHARGE SUMMARY-Residence ---
Discharge Summary Providers to CC ~ Discharge Summary Admission Diagnosis: ALLERGIC REACTION Hospital Course DATE OF ADMISSION: DATE OF DISCHARGE: Condition on DC: Stable New Medications: Diphenhydramine Hcl (Benadryl Allergy) 25 Mg Tablet 25 MG PO BID PRN for itching for 5 Days, #10 TAB 0 Refills Continued Medications: Albuterol Sulfate (Albuterol Sulfate) 2.5 Mg/3 Ml Vial.neb 2 PUFFS IH Q4H PRN for SOB or wheezing Albuterol Sulfate/Budesonide (Airsupra 90-80 Mcg Inhaler) 90 Mcg-80 Mcg/Actuation Hfa.aer.ad 2 PUFFS PO Q4H PRN for wheezing Budesonide (Budesonide) 0.25 Mg/2 Ml Ampul.neb 2 ML NEB BID PRN for SOB or wheezing Budesonide/Formoterol Fumarate (Budesonide-Formoterol 160-4.5) 160 Mcg-4.5 Mcg/Actuation Hfa.aer.ad 2 PUFFS IH BID Cholecalciferol (Vitamin D3) (Vitamin D3) 1,250 Mcg (64927 Unit) Capsule 1 CAP PO Q7D Cromolyn Sodium (Gastrocrom) 20 Mg/Ml Solution 1 ML NEB TID PRN for SOB or wheezing Epinephrine (Epinephrine) 0.3 Mg/0.3 Ml Auto.injct 0.3 MG IM PRN for allergies Ipratropium/Albuterol Sulfate (Duoneb 2.5-0.5 Mg/3 Ml Soln) 0.5 Mg-3 Mg (2.5 Mg Base)/3 Ml Ampul.neb 1 VIAL NEB Q4H PRN for SOB or wheezing Prednisone* (Prednisone*) 20 Mg Tablet 2 TAB PO DAILY Tezepelumab-Ekko (Tezspire) 210 Mg/1.91 Ml (110 Mg/Ml) Pen.injctr 210 MG SQ Q4W Tiotropium Alger (Spiriva Respimat) 2.5 Mcg/Actuation Mist.inhal 2 PUFFS INH DAILY ALFREDA ZHENG, RES Feb 14, 2025 16:26 MIGUELINA TANG, RES Feb 14, 2025 19:56
[2025-02-19] MEDS ORDERED: VITAMIN D3 PO SCH (08:00)
[2025-03-12] MEDS ORDERED: TEZSPIRE SQ SCH (08:00)
== END 2025-02-14 15:48 | disposition home or self-care (01) | DRG 915 ==
LOC: ER 22:15 → ED HOLD 23:32 → EDBEDREQ 02-13 01:27 → PCU 3S 02-13 01:55
PROVIDERS: ADMIT Surgery Surgical Critical Care; ATTEND Family Medicine
DX: T78.01XA Anaphylactic reaction due to peanuts, initial encounter (principal); J96.00 Acute respiratory failure, unspecified whether with hypoxia or hypercapnia; J45.901 Unspecified asthma with (acute) exacerbation; E87.6 Hypokalemia; Z91.010 Allergy to peanuts; Y92.89 Other specified places as the place of occurrence of the external cause
CPT/HCPCS: 36415; 71045; 80053; 80061; 83735; 84100; 84145; 84443; 84703; 85025; 85610; 85730; 87081; 93005; 94640; 94760; 96374; 96375; 99285; 99291; A4615; A7015; G0378; J1100; J1650; J2919; J3490; J7030; J7040

== ENCOUNTER 2025-02-24 20:18 | Emergency (ER) | payer BC ==
[~2025-02-24] VITALS: Ht 170.2 cm; Wt 63.6 kg
[~2025-02-24 20:18] MED LIST changes: +BUDE0.256 NEB; +CROM20SO NEB; +DIPH25TA62 PO; +EPIN0.3A3 IM; -EPIN0.3P3 IM; -IVAB5TAB3 PO; -METO-395 PO; -PRE5T PO; +PRED20TA PO; +TIOT4MIS2 INH; -[UNRECOGNIZED DRUG - CODE] NEB
[2025-02-24 20:21] VITALS: TEMP 98.2
--- NOTE | 2025-02-24 21:31 | Physician Documentation ---
History of Present Illness ~ Chief Complaint: Allergic Reaction Stated Complaint: ALLERGIC REACTION Time Seen by MD: 21:23 Primary Medical Doctor: Frankie (PCP)/CHETNA for asthma Mode of Arrival: EMS HPI Patient presents to the emergency room with chief complaint of allergic reaction. Patient's medical history is complicated by significant asthma exacerbations requiring intubation and cricothyrotomy more than once. Last time this past December. Today she woke up feeling like herself and for lunch she had some pineapple and just a few minutes after eating this developed some tingling in his throat and shortness of breath. She used epinephrine in her breathing treatments at home with limited benefit therefore called EMS. She continues to feel short of breath. No rash. She is not any current steroids and is currently taking biologics for her allergies. Medication Reconciliation Allergies: Coded Allergies: peanut (Verified Allergy, Severe, 02/24/25) pineapple (Verified Allergy, Intermediate, 02/24/25) shrimp (Verified Allergy, Unknown, 02/24/25) Scheduled Budesonide/Formoterol Fumarate (Budesonide-Formoterol 160-4.5), 2 PUFFS IH BID, (Reported) Cholecalciferol (Vitamin D3) (Vitamin D3), 1 CAP PO Q7D, (Reported) Prednisone* (Prednisone*), 2 TAB PO DAILY, (Reported) Tezepelumab-Ekko (Tezspire), 210 MG SQ Q4W, (Reported) Tiotropium [place] (Spiriva Respimat), 2 PUFFS INH DAILY, (Reported) Scheduled PRN Albuterol Sulfate (Albuterol Sulfate), 2 PUFFS IH Q4H PRN for SOB or wheezing, (Reported) Albuterol Sulfate/Budesonide (Airsupra 90-80 Mcg Inhaler), 2 PUFFS PO Q4H PRN for wheezing, (Reported) Budesonide (Budesonide), 2 ML NEB BID PRN for SOB or wheezing, (Reported) Cromolyn Sodium (Gastrocrom), 1 ML NEB TID PRN for SOB or wheezing, (Reported) Diphenhydramine Hcl (Benadryl Allergy), 25 MG PO BID PRN for itching Epinephrine (Epinephrine), 0.3 MG IM for allergies, (Reported) Ipratropium/Albuterol Sulfate (Duoneb 2.5-0.5 Mg/3 Ml Soln), 1 VIAL NEB Q4H PRN for SOB or wheezing, (Reported) Past Medical History Past Medical History: Asthma Past Surgical History: no surgical history Patient History: Patient reports no known family medical history. Alcohol Use: None Drug Use: none Occupation: employed Review of Systems ROS All review of systems negative except as per HPI Physical Exam Vital Signs: Temperature: 98.2, Source: Oral, Heart Rate: 114, Respiratory Rate: 24, BP: 133/78, Pulse Oximetry: 99, Weight: 63.600 Physical Exam General: Patient is awake, alert, oriented x4 in no acute distress Head: Normocephalic and atraumatic. Eyes: Conjunctival normal. EOMI. PERRL. ENT: Mucous membranes moist. Neck: Supple, trachea is midline. Chest: Very mild expiratory wheezing. There is no accessory muscle use or retractions. Cardiac: Tachycardic and regular without murmurs, gallops, or rubs. Abd: Soft, nondistended, nontender, with normoactive bowel sounds. No guarding, rebound, or rigidity. Skin: No rash Progress Results/Orders Results/Orders Orders - JOSEPH PADILLA MD Svn Treatment (02/24/25 21:48) Completed Orders - JOSEPH PADILLA MD Dexamethasone Inj (Decadron 4mg/Ml Inj) (02/24/25 21:50) Albuterol 2.5mg/3ml Nebule (Proventil 2. (02/24/25 21:50) Dexamethasone Inj (Decadron 4mg/Ml Inj) (02/24/25 21:57) Medications Received in ER Medications (Trade) Dose Ordered Sig/Cherry Route PRN Reason Start Time Stop Time Status Last Admin Dose Admin (Proventil 2.5 MG/3ML nebule) 5 mg ONCE ONCE NEB 02/24/25 21:50 02/24/25 21:51 DC 02/24/25 22:11 5 MG (Decadron 4mg/ml inj) 8 mg ONCE STAT IV 02/24/25 21:57 02/24/25 21:58 DC 02/24/25 21:59 8 MG Vital Signs 02/24/25 02/24/25 02/24/25 02/24/25 20:21 20:28 22:05 22:08 Temp 98.2 Pulse 114 103 99 Resp 28 24 28 18 B/P (MAP) 133/78 113/75 (88) Pulse Ox 99 96 96 O2 Delivery Room Air* O2 Flow Rate 0 0 FiO2 N/A 02/24/25 22:20 Pulse 98 Resp 22 Pulse Ox 99 O2 Delivery Room Air* O2 Flow Rate 0 FiO2 N/A Medical Decision Making Findings Patient presents to the emergency room with shortness of breath as per HPI. Differentials include but are not limited to anaphylaxis, asthma exacerbation, anxiety, CHF therefore IV obtained in patient received Decadron. She has also received breathing treatments by EMS and here. She states she is feeling much better and feels well enough to go and states she has all of her medications at home. Departure Disposition: HOME / SELF CARE / HOMELESS Impression: Primary Impression: Asthma exacerbation Condition: Improved Discharge Instructions: Asthma Attack Prevention, Adult Additional Instructions: Avoid pineapple Referrals: NO PRIMARY CARE PROVIDER (PCP) Signature Scribe Signature: No scribe Attestation: The note accurately reflects work and decisions made by me.Joseph Padilla MD 02/24/25 23:03 JOSEPH PADILLA MD Feb 24, 2025 21:31
[2025-02-24] MEDS ORDERED: dexamethasone 4mg/ml inj IM ONE (21:50)
[2025-02-24] MEDS: dexamethasone 4mg/ml inj IV STA (21:59)
[2025-02-24 22:08] VITALS: PULSE 99; RESP 18; O2SAT 96
[2025-02-24] MEDS: albuterol 2.5 MG/3 ML nebule NEB ONE (22:11)
[2025-02-24 22:20] VITALS: PULSE 98; RESP 22; O2SAT 99
[2025-02-24 23:13] VITALS: BP 109/64; PULSE 96; RESP 16; O2SAT 97
== END 2025-02-24 23:12 | disposition home or self-care (01) ==
LOC: ER 20:18
DX: J45.901 Unspecified asthma with (acute) exacerbation (principal); Z88.8 Allergy status to other drugs, medicaments and biological substances; Z79.899 Other long term (current) drug therapy
CPT/HCPCS: 94640; 96374; 99283; J1100

== ENCOUNTER 2025-03-20 07:54 | Emergency (ER) | payer BC ==
[~2025-03-20] VITALS: Ht 165.1 cm; Wt 65.9 kg
[2025-03-20 08:04] VITALS: TEMP 97.3
--- NOTE | 2025-03-20 08:27 | Physician Documentation ---
History of Present Illness ~ Chief Complaint: Allergic Reaction Stated Complaint: POSS ALLERGIC REACTION Time Seen by MD: 08:17 Primary Medical Doctor: Frankie (PCP)/UCD for asthma HPI 24-year-old female, history of severe asthma and multiple allergies, presenting with shortness of breath and concern for an allergic reaction She tells me that over the past week she has been having worsening asthma symptoms. She reports having difficulty breathing. She has been on prednisone 40 mg for the past week as well as using duo nebs and multiple other treatments. Starting last night she began to feel like she was having allergic reaction as well. She states that her face and throat feels swollen and she feels itchy all over. She did take Benadryl and hydroxyzine. She has multiple food allergies. She thinks maybe she was exposed to something in the food she ate last night. Medication Reconciliation Allergies: Coded Allergies: peanut (Verified Allergy, Severe, 03/20/25) pineapple (Verified Allergy, Intermediate, 03/20/25) shrimp (Verified Allergy, Unknown, 03/20/25) Scheduled Budesonide/Formoterol Fumarate (Budesonide-Formoterol 160-4.5), 2 PUFFS IH BID, (Reported) Cholecalciferol (Vitamin D3) (Vitamin D3), 1 CAP PO Q7D, (Reported) Prednisone* (Prednisone*), 2 TAB PO DAILY, (Reported) Prednisone* (Prednisone*), 1 TAB PO DAILY Tezepelumab-Ekko (Tezspire), 210 MG SQ Q4W, (Reported) Tiotropium [place] (Spiriva Respimat), 2 PUFFS INH DAILY, (Reported) Scheduled PRN Albuterol Sulfate (Albuterol Sulfate), 2 PUFFS IH Q4H PRN for SOB or wheezing, (Reported) Albuterol Sulfate/Budesonide (Airsupra 90-80 Mcg Inhaler), 2 PUFFS PO Q4H PRN for wheezing, (Reported) Budesonide (Budesonide), 2 ML NEB BID PRN for SOB or wheezing, (Reported) Cromolyn Sodium (Gastrocrom), 1 ML NEB TID PRN for SOB or wheezing, (Reported) Diphenhydramine Hcl (Benadryl Allergy), 25 MG PO BID PRN for itching Epinephrine (Epinephrine), 0.3 MG IM for allergies, (Reported) Ipratropium/Albuterol Sulfate (Duoneb 2.5-0.5 Mg/3 Ml Soln), 1 VIAL NEB Q4H PRN for SOB or wheezing, (Reported) Past Medical History Past Medical History: Asthma Past Surgical History: no surgical history Patient History: Patient reports no known family medical history. Alcohol Use: None Drug Use: none Occupation: employed Review of Systems Constitutional: Denies: fever Respiratory: Reports: shortness of breath; Denies: stridor Gastrointestinal: Denies: abdominal pain, nausea, diarrhea Physical Exam Vital Signs: Temperature: 97.3, Source: Oral, Heart Rate: 113, Respiratory Rate: 20, BP: 123/81, Pulse Oximetry: 98, Weight: 65.900 Oxygen Flow Rate: 0 Physical Exam General: This is a nontoxic-appearing young female sitting quietly in bed HEENT: The patient is appear to have some mild swelling diffusely to her face. No obvious intraoral swelling or posterior oropharyngeal swelling. No swelling under the tongue. She is swallowing secretions without difficulty. Neck: Well-healed scar from previous trach Heart: Tachycardic, appears regular Lungs: Severely diminished breath sounds bilateral with poor air movement, oxygen saturations in the high 90s on room air, she is not in acute distress Abdomen: Soft, nondistended, nontender all quadrants Extremities: Warm and well-perfused, no edema Neuro: Alert and oriented Psychiatric: Calm and cooperative with exam Progress Results/Orders Results/Orders Orders - JEANNA BO MD Magnesium Sulf-Water 2g/50ml (Magnesium (03/20/25 08:30) Chest,Two Views (03/20/25 08:27) Completed Orders - JEANNA BO MD Ipratropium/Albuterol Nebule (Ipratrop/A (03/20/25 11:00) Ipratropium/Albuterol Nebule (Ipratrop/A (03/20/25 08:30) Methylprednisolone Sod Succ (Solumedrol (03/20/25 08:30) Epinephrine Inj (Adrenalin Inj) (03/20/25 08:27) Chest,Two Views (03/20/25 08:27) Ipratropium/Albuterol Nebule (Ipratrop/A (03/20/25 08:33) Ipratropium/Albuterol Nebule (Ipratrop/A (03/20/25 08:30) Medications Received in ER Medications (Trade) Dose Ordered Sig/Cherry Route PRN Reason Start Time Stop Time Status Last Admin Dose Admin (ipratrop/ albuterol 0.5-3(2.5) MG/3ml nebule) 3 ml ONCE NEB 03/20/25 08:30 03/20/25 08:41 DC 03/20/25 08:34 3 ML Magnesium Sulfate 50 ml @ 25 mls/hr ONCE ONCE IV 03/20/25 08:30 03/20/25 10:29 03/20/25 09:25 25 MLS/HR (SoluMEDROL 125mg inj) 125 mg ONCE ONCE IV 03/20/25 08:30 03/20/25 08:31 DC 03/20/25 09:19 125 MG (Adrenalin inj) 0.3 mg ONCE STAT IM 03/20/25 08:27 03/20/25 08:28 DC 03/20/25 08:59 0.3 MG Vital Signs 03/20/25 03/20/25 03/20/25 03/20/25 08:04 08:34 08:44 09:00 Temp 97.3 Pulse 113 99 95 Resp 20 19 18 B/P (MAP) 123/81 Pulse Ox 98 98 99 O2 Delivery Room Air* Room Air* O2 Flow Rate 0 0 0 FiO2 21 21 Re-Evaluation Re-Evaluation : Re-Evaluation: Improved Progress The patient is sitting comfortably in bed with normal work of breathing. She tells me that she feels much improved and would like to go home. EKG/XRAY/CT/US/VASC/MRI Chest X-Ray : Additional Comments I personally interpreted the x-ray, and it shows: No focal consolidation, pneumothorax, or pulmonary edema Medical Decision Making Differential Dx:Considerations: Include: Anaphylaxis, Angioedema, Bronchospasm, Drug reaction, Respiratory failure, Urticaria Differential Diagnosis The patient presents with difficulty breathing as well as swelling and itching, with a history that appears consistent with a asthma exacerbation and possible allergic reaction as well. She already has been on oral steroids, antihistamines, and breathing treatments without much improvement. She will be treated with IM epinephrine as well as IV steroids, magnesium, and further breathing treatments. Following this she had rapid improvement. I did discuss the possibility of admission for further observation and treatment but she declined admission. She requested to be discharged home with a long steroid taper and ongoing home treatments. She already has prednisone at home and so she was given a prescription for 5 mg prednisone so that she can do a prolonged taper. She has a design director and primary care doctor who are very involved in her care. She has an EpiPen at home. She was given return precautions. Departure Time of Disposition: 09:49 Disposition: HOME / SELF CARE / HOMELESS Impression: Primary Impression: Acute allergic reaction Additional Impression: Asthma exacerbation Condition: Improved Discharge Instructions: Anaphylactic Reaction, Adult, [id number] Referrals: NO PRIMARY CARE PROVIDER (PCP) Prescriptions Prednisone* (Prednisone*) 5 Mg Tablet 1 TAB PO DAILY for 20 Days, #20 TAB 0 Refills Prov: JEANNA BO MD 03/20/25 Education Educated: Patient Educated regarding: diagnosis, treatment, need for follow up Signature Scribe Signature: dom Attestation: JEANNA Baltazar MD Mar 20, 2025 08:27
[2025-03-20 08:34] VITALS: PULSE 99; RESP 19; O2SAT 98
[2025-03-20] MEDS: ipratropium/albuterol 3ml nebule NEB SCH (08:34)
[2025-03-20] MEDS: ipratropium/albuterol 3ml nebule ONE (08:42)
[2025-03-20] MEDS: ipratropium/albuterol 3ml nebule NEB ONE (08:43)
[2025-03-20 08:44] VITALS: PULSE 95; RESP 18; O2SAT 99
--- NOTE | 2025-03-20 08:58 | RADIOLOGY REPORT ---
CHEST RADIOGRAPH Indication: Asthma, shortness of breath, possible allergic reaction Technique: Frontal and lateral view of the chest was obtained Comparison: DI CHEST,SINGLE VIEW on DOS: 02/12/25, DI CHEST,SINGLE VIEW on DOS: 01/30/25, CT CT CHEST on DOS: 12/23/24, DI CHEST,SINGLE VIEW on DOS: 12/18/24, DI CHEST,SINGLE VIEW on DOS: 12/17/24 FINDINGS: Lines and Tubes: None Lungs: Clear Pleura: No effusion. No pneumothorax. Cardiomediastinal contours: Unremarkable Bones: Unremarkable IMPRESSION: No evidence of acute disease.
[2025-03-20] MEDS: magnesium sulf-water 2g/50mL 50 ML IV ONE (09:25)
[2025-03-20] MEDS ORDERED: PRED5TAB PO (09:50)
[2025-03-20 10:43] VITALS: BP 122/84; PULSE 88; RESP 18; O2SAT 98
[2025-03-20] MEDS ORDERED: ipratropium/albuterol 3ml nebule NEB SCH (11:00)
== END 2025-03-20 10:44 | disposition home or self-care (01) ==
LOC: ER 07:55
DX: J45.901 Unspecified asthma with (acute) exacerbation (principal); T78.49XA Other allergy, initial encounter; Z91.010 Allergy to peanuts; Z91.018 Allergy to other foods; Z79.899 Other long term (current) drug therapy; X58.XXXA Exposure to other specified factors, initial encounter
CPT/HCPCS: 71046; 94640; 96365; 96372; 96375; 99284; J0169; J2919; J7030; 94760; 96366

== ENCOUNTER 2025-04-07 18:34 | Emergency (ER) | payer BC ==
[~2025-04-07] VITALS: Ht 170.2 cm; Wt 69.3 kg
[~2025-04-07 18:34] MED LIST changes: +PRED5TAB PO
--- NOTE | 2025-04-07 19:08 | Physician Documentation ---
History of Present Illness ~ Chief Complaint: Shortness of Breath Stated Complaint: SOB Time Seen by MD: 19:43 Primary Medical Doctor: Frankie (PCP)/UCD for asthma HPI This is a 24-year-old female with a history of asthma who presents with worsening cough and shortness of breath, patient reports she was seen at urgent care and prescribed steroids however these have yet to be effective. Medication Reconciliation Allergies: Coded Allergies: peanut (Verified Allergy, Severe, 04/07/25) pineapple (Verified Allergy, Intermediate, 04/07/25) shrimp (Verified Allergy, Intermediate, SWELLING, 04/07/25) Scheduled Budesonide/Formoterol Fumarate (Budesonide-Formoterol 160-4.5), 2 PUFFS IH BID, (Reported) Cholecalciferol (Vitamin D3) (Vitamin D3), 1 CAP PO Q7D, (Reported) Prednisone* (Prednisone*), 2 TAB PO DAILY, (Reported) Prednisone* (Prednisone*), 1 TAB PO DAILY Tezepelumab-Ekko (Tezspire), 210 MG SQ Q4W, (Reported) Tiotropium [place] (Spiriva Respimat), 2 PUFFS INH DAILY, (Reported) Scheduled PRN Albuterol Sulfate (Albuterol Sulfate), 2 PUFFS IH Q4H PRN for SOB or wheezing, (Reported) Albuterol Sulfate/Budesonide (Airsupra 90-80 Mcg Inhaler), 2 PUFFS PO Q4H PRN for wheezing, (Reported) Budesonide (Budesonide), 2 ML NEB BID PRN for SOB or wheezing, (Reported) Cromolyn Sodium (Gastrocrom), 1 ML NEB TID PRN for SOB or wheezing, (Reported) Diphenhydramine Hcl (Benadryl Allergy), 25 MG PO BID PRN for itching Epinephrine (Epinephrine), 0.3 MG IM for allergies, (Reported) Ipratropium/Albuterol Sulfate (Duoneb 2.5-0.5 Mg/3 Ml Soln), 1 VIAL NEB Q4H PRN for SOB or wheezing, (Reported) Past Medical History Past Medical History: Asthma Past Surgical History: no surgical history Patient History: Patient reports no known family medical history. Alcohol Use: None Drug Use: none Occupation: employed Review of Systems ROS As stated above in the HPI, otherwise all systems are reviewed and negative. Physical Exam Vital Signs: Temperature: 98.2, Source: Oral, Heart Rate: 112, Respiratory Rate: 20, BP: 127/81, Pulse Oximetry: 99, Weight: 69.300 Physical Exam MSE in triage: VITALS: Reviewed and as above. GENERAL: Alert, nontoxic appearing, no apparent distress. RESPIRATORY: No increased work of breathing, no respiratory distress, speaking in full clear sentences Reexamination: VITALS: Reviewed and as above. GENERAL: Alert, nontoxic appearing, RESPIRATORY: Alternating episodes of increased work of breathing with upper airway stridor and speaking in short sentences with returned to normal work of breathing without stridor or wheezing and speaking in full clear sentences. Lung sounds clear but diminished throughout. CV: Regular rate and rhythm no murmur SKIN: Warm and dry NEURO: GCS 15 PSYCH: Anxious appearing Progress Results/Orders Results/Orders Orders - LUCIA OLIVARES [employer] Chest,Two Views (04/07/25 19:32) Completed Orders - LUCIA OLIVARES [employer] Chest,Two Views (04/07/25 19:32) Lorazepam Inj (Ativan Inj) (04/07/25 21:25) Cbc/Diff (04/07/25 22:00) BMP (04/07/25 22:00) MG (04/07/25 22:00) Vital Signs 04/07/25 04/07/25 04/07/25 04/07/25 18:41 21:14 21:22 21:26 Temp 98.2 98.2 Pulse 112 123 108 97 Resp 20 48 24 16 B/P (MAP) 127/81 145/83 (103) Pulse Ox 99 98 100 98 O2 Delivery Room Air* Room Air* O2 Flow Rate 0 0 0 FiO2 N/A 21 04/07/25 04/07/25 04/07/25 04/07/25 21:35 21:51 22:15 23:15 Pulse 93 96 Resp 20 37 18 18 B/P (MAP) 118/76 (90) 123/74 (90) Pulse Ox 99 99 Laboratory Tests Test 04/07/25 22:14 White Blood Count 9.9 Red Blood Count 4.17 L Hemoglobin 11.0 L Hematocrit 33.2 L Mean Corpuscular Volume 79.5 Mean Corpuscular Hemoglobin 26.3 L Mean Corpuscular Hemoglobin Concent 33.0 Red Cell Distribution Width 15.5 H Platelet Count 350 Mean Platelet Volume 7.9 Neutrophils (%) (Auto) 82.3 H Lymphocytes (%) (Auto) 10.3 L Monocytes (%) (Auto) 6.9 Eosinophils (%) (Auto) 0 Basophils (%) (Auto) 0.5 Neutrophils # (Auto) 8.1 H Lymphocytes # (Auto) 1.0 L Monocytes # (Auto) 0.7 Eosinophils # (Auto) 0.0 Basophils # (Auto) 0.0 CBC Comment Sodium Level 144 Potassium Level 3.6 Chloride Level 110 H Carbon Dioxide Level 27.0 Anion Gap 7 L Blood Urea Nitrogen 15 Creatinine 0.61 Estimated GFR/1.73 m2 > 90 BUN/Creatinine Ratio 24.6 H Glucose Level 116 H Calcium Level 8.5 Magnesium Level 2.2 Albumin 3.5 Chemistry Comments EKG/XRAY/CT/US/VASC/MRI Chest X-Ray : Additional Comments Exam: CHEST,TWO VIEWS CLINICAL HISTORY: Cough/SOB TECHNIQUE: Chest 2 views of the chest were obtained. COMPARISON: DI CHEST,TWO VIEWS on DOS: 03/20/25, DI CHEST,SINGLE VIEW on DOS: 02/12/25, DI CHEST,SINGLE VIEW on DOS: 01/30/25, CT CT CHEST on DOS: 12/23/24, DI CHEST,SINGLE VIEW on DOS: 12/18/24 FINDINGS: The heart size and pulmonary vasculature are normal. The lungs are clear. No pleural effusion is present. IMPRESSION: NO ACUTE CARDIOPULMONARY PROCESS. Electronically Signed by:YANCY RODRIGUEZ MD Date & Time: 04/07/251948 Dictated by: YANCY RODRIGUEZ MD Dictation date and time: 04/07/251921 I have reviewed and agree with the radiology report. I have reviewed and interpreted the imaging as: No focal consolidation or pneumothorax Medical Decision Making Findings MSE performed in triage and patient returned to ED lobby by nursing staff to await available ED room This 24-year-old female presented with cough and shortness of breath, patient is well-known to the emergency department with frequent episodes of respiratory distress that have required intubation in the past, patient is seeing specialist at [facility] for asthma and bronchospasm. Patient presented today after treatment at urgent care with steroids, on initial medical screening exam in triage patient had no increased work of breathing or stridor and was speaking in full clear sentences, a chest x-ray was obtained demonstrating no focal consolidation to suggest pneumonia. During patient's wait in the emergency department lobby she reported becoming more short of breath and was moved to an emergency department room where she received a breathing treatment, at no point patient demonstrate any evidence of hypoxia. Patient did appear light anxious and was medicated with Ativan, however patient reported no effect on feeling of shortness of breath. On reexamination patient had episodes of stridor interrupted by ability to speak in full clear sentences without evidence of respiratory distress, due to distractible stridorous breathing I believe there is some component of anxiety to patient's condition. Lab work was obtained and was without significant abnormality, I discussed patient options moving forward for treatment including a magnesium infusion however patient reported feeling well enough to go home and reporting desire to go home, in careful discussion and shared decision-making with the patient she will be discharged home with careful return to care precautions and has been directed to follow up as scheduled with JAREK Gann in two weeks. At no point in the patient's ER stay did she hypoxic and has remained hemodynamically stable, at time of discharge patient has room air SpO2 above 98%, no increased work of breathing, and stable vital signs and is appropriate for outpatient follow up. Differential Dx:Considerations: Include: anxiety, asthma, bronchitis, CHF, COPD, hyperventilation, pneumonia, pneumonitis, pneumothorax, respiratory distress, respiratory failure, upper resp. infection Departure Time of Disposition: 23:16 Disposition: 01 HOME / SELF CARE / HOMELESS Impression: Primary Impression: Shortness of breath Condition: Improved Additional Instructions: Follow up as scheduled with the JAREK Gann, please return to the emergency department if anything changes or your symptoms worsen. Please follow up with your primary care provider in the next few days. Please return to the emergency department for any new or worsening concerning symptoms. Referrals: NO PRIMARY CARE PROVIDER (PCP) Education Educated: Patient Educated regarding: diagnosis, treatment, prognosis, need for follow up Signature Scribe Signature: No Scribe Attestation: The note accurately reflects work and decisions made by me.JUANITA Morales 04/08/25 11:50 LUCIA OLIVARES Apr 07, 2025 19:08
--- NOTE | 2025-04-07 19:52 | RADIOLOGY REPORT ---
CLINICAL HISTORY: Cough/SOB TECHNIQUE: Chest 2 views of the chest were obtained. COMPARISON: DI CHEST,TWO VIEWS on DOS: 03/20/25, DI CHEST,SINGLE VIEW on DOS: 02/12/25, DI CHEST,SINGLE VIEW on DOS: 01/30/25, CT CT CHEST on DOS: 12/23/24, DI CHEST,SINGLE VIEW on DOS: 12/18/24 FINDINGS: The heart size and pulmonary vasculature are normal. The lungs are clear. No pleural effusion is present. IMPRESSION: NO ACUTE CARDIOPULMONARY PROCESS.
[2025-04-07 21:14] VITALS: TEMP 98.2
[2025-04-07 21:22] VITALS: PULSE 108; RESP 24; O2SAT 100
[2025-04-07] MEDS: albuterol 2.5 MG/3 ML nebule NEB ONE (21:22)
[2025-04-07 21:26] VITALS: PULSE 97; RESP 16; O2SAT 98
[2025-04-07 22:32] LABS: CREATININE 0.61 MG/DL (0.40-0.90); TOTAL CARBON DIOXIDE 27.0 MMOL/L (24-32); eCRCL 138 ML/MIN; eGFR > 90 ML/MIN
[2025-04-07 22:34] LABS: MEAN PLATELET VOLUME 7.9 FL (7.4-10.4); RED CELL DISTRIBUTION WIDTH 15.5 % (11.5-14.5)
[2025-04-07 23:15] VITALS: BP 123/74; PULSE 96; RESP 18; O2SAT 99
== END 2025-04-07 23:43 | disposition home or self-care (01) ==
LOC: ER 18:35
DX: R06.02 Shortness of breath (principal); J45.909 Unspecified asthma, uncomplicated; Z91.010 Allergy to peanuts; Z91.018 Allergy to other foods; Z79.899 Other long term (current) drug therapy
CPT/HCPCS: 36415; 71046; 80048; 83735; 85025; 94640; 96374; 99284; J2060; 94760